=== PATIENT | female | born 1980 | race Caucasian/White ===

== ENCOUNTER 2020-09-23 14:48 | Outpatient (REF) | payer OTHER, SELFPAY ==
[2020-09-24 05:34] LABS: CT PCR NOT DETECTED (Not Detect.); NG PCR NOT DETECTED (Not Detect.)
== END 2020-09-23 14:49 | disposition home or self-care (01) ==
LOC: HO.LAB 14:48
PROVIDERS: PCP Physician Assistant; Referring Provider Physician Assistant; Visit Provider Obstetrics & Gynecology
DX: Z01.411 Encounter for gynecological examination (general) (routine) with abnormal findings (principal); Z11.3 Encounter for screening for infections with a predominantly sexual mode of transmission; N94.10 Unspecified dyspareunia; R31.29 Other microscopic hematuria
CPT/HCPCS: 87086; 87491; 87591

== ENCOUNTER → 2020-10-13 14:48 | Outpatient (BNVA) | payer OTHER, SELFPAY | PROVIDERS: Visit Provider Obstetrics & Gynecology | DX: Z30.430 Encounter for insertion of intrauterine contraceptive device (principal) | CPT/HCPCS: 58300; J7298 ==

== ENCOUNTER 2021-09-03 13:46 | Outpatient (REF) | payer OTHER, SELFPAY ==
[2021-09-03 14:14] LABS: Binax Internal Control QC Valid; Binax Now Covid-19 Ag Negative (Negative); Binax Performed by: HO.BONILM
== END 2021-09-03 13:47 | disposition home or self-care (01) ==
LOC: HO.HMGCLDS 13:46
PROVIDERS: Visit Provider Physician Assistant Medical
DX: Z20.822 Contact with and (suspected) exposure to COVID-19 (principal)
CPT/HCPCS: 87811; C9803

== ENCOUNTER 2021-09-08 09:21 | Outpatient (REF) | payer OTHER, SELFPAY ==
[2021-09-08 11:40] LABS: Monotest Negative (Negative)
== END 2021-09-08 09:22 | disposition home or self-care (01) ==
LOC: HO.HMGCLDS 09:21
PROVIDERS: PCP Physician Assistant; Visit Provider Physician Assistant
DX: J02.9 Acute pharyngitis, unspecified (principal)
CPT/HCPCS: 36415; 86308

== ENCOUNTER 2022-01-24 10:35 | Outpatient (REF) | payer OTHER, SELFPAY ==
[2022-01-24 13:41] LABS: Hemoglobin 14.7 g/dl (12.0-16.0); Mean Corpuscular HGB Conc 34.2 g/dl (31.0-35.0); Mean Corpuscular Hemoglobin 31.1 pg (27.0-33.0); Mean Corpuscular Volume 91.1 fL (80.0-98.0); Mean Platelet Volume 10.5 fL (9.4-12.3); Platelet Count 248 X10*3/uL (160-400); Red Blood Count 4.72 X10*6/uL (4.20-5.50); Red Cell Distribution Width 12.1 % (11.0-16.0); White Blood Count 5.8 X10*3/uL (4.8-10.8)
[2022-01-24 14:07] LABS: Appearance Urine Clear; Color Urine Yellow; Glucose Urine UA Negative (Negative); Leukocyte Esterase Urine Negative (Negative); Nitrite Urine Negative (Negative); UMIC TRIGGER UACC YES; Urine Blood Moderate (2+) (Negative); Urine Ketones Negative (Negative); Urine Protein Negative (Neg-Trace)
[2022-01-24 14:30] LABS: Alanine Aminotransferase 19 U/L (0-31); Albumin Level 5.2 g/dL (3.5-5.0); Alkaline Phosphatase 56 U/L (39-117); Anion Gap 12 (12-20); Aspartate Amino Transferase 18 U/L (5-31); Bilirubin Total 0.5 mg/dL (0.0-1.0); Blood Urea Nitrogen 15 mg/dL (9-16); Calcium 9.7 mg/dL (8.4-10.2); Carbon Dioxide 23 mmol/L (22-29); Chloride 109 mmol/L (96-108); Cholesterol 243 mg/dL; Estimated Glomerular Filt Rate > 60; Glucose Fasting 101 mg/dL (60-99); HDL Cholesterol 69 mg/dL; LDL Cholesterol Calculated 159 mg/dl; Potassium 4.4 mmol/L (3.3-5.1); Sodium 140 mmol/L (135-145); TSH reflex Free T4 1.71 uIU/mL (0.32-4.0); Total Protein 7.6 g/dL (6.5-8.0); Triglycerides 75 mg/dL
[2022-01-24 14:42] LABS: Bacteria Urine None Seen (None Seen); Hyaline Casts Urine 0-2 /LPF (0-2); RBC Urine 0-2 /HPF (0-2); Squamous Epithelial Cell Urine 0-2 /HPF (0-2); WBC Urine 0-5 /HPF (0-5)
== END 2022-01-24 10:36 | disposition home or self-care (01) ==
LOC: HO.10HDL 10:35
PROVIDERS: Visit Provider Physician Assistant
DX: Z13.1 Encounter for screening for diabetes mellitus (principal); Z13.220 Encounter for screening for lipoid disorders; Z13.29 Encounter for screening for other suspected endocrine disorder
CPT/HCPCS: 36415; 80053; 80061; 81001; 81003; 84443; 85027

== ENCOUNTER 2022-02-14 10:35 | Outpatient (REF) | payer OTHER, SELFPAY ==
[2022-02-14 17:58] LABS: Influenza A PCR POSITIVE (Negative); Influenza B PCR NEGATIVE (Negative); Resp Syncy Virus RNA Qual PCR NEGATIVE (Negative); SARS COV2 PCR INHOUSE NEGATIVE (Negative)
== END 2022-02-14 10:36 | disposition home or self-care (01) ==
LOC: HO.LAB 10:35
PROVIDERS: Visit Provider Internal Medicine
DX: R43.9 Unspecified disturbances of smell and taste (principal); Z20.822 Contact with and (suspected) exposure to COVID-19
CPT/HCPCS: 0241U

== ENCOUNTER 2022-02-16 08:27 | Outpatient (REF) | payer OTHER, SELFPAY ==
--- NOTE | ~2022-02-16 | XR_ITS ---
EXAMINATION: XR CHEST CLINICAL INFORMATION: Acute respiratory infection COMPARISON: 11/27/2017 TECHNIQUE: 2 views of the chest were obtained. FINDINGS: The lungs are well expanded. There is no focal consolidation, edema, or effusion. No pneumothorax. The cardiomediastinal silhouette is within normal limits. No acute osseous abnormality. XR/XR chest 2V IMPRESSION: Clear lungs.
== END 2022-02-16 08:28 | disposition home or self-care (01) ==
LOC: HO.HMGCX 08:27
PROVIDERS: PCP Physician Assistant; Visit Provider Physician Assistant
DX: J06.9 Acute upper respiratory infection, unspecified (principal)
CPT/HCPCS: 71046

== ENCOUNTER 2022-03-23 14:25 | Outpatient (REF) | payer OTHER, SELFPAY ==
--- NOTE | ~2022-03-23 | MM_ITS ---
EXAMINATION: MM SCREENING DIGITAL BREAST TOMOSYNTHESIS, BILATERAL CLINICAL INFORMATION: Screening. Asymptomatic. The lifetime risk of breast cancer based on the Tyrer-Cuzick Model is 12%. COMPARISON: Mammography: None TECHNIQUE: Digital breast tomosynthesis is performed in both the craniocaudal and mediolateral oblique views along with computer-aided detection (CAD). Synthesized 2D images are generated from the tomosynthesis. FINDINGS: The breasts are heterogeneously dense, which may obscure small masses (ACR BI-RADS breast composition Category c). There are no significant masses, abnormal calcifications, or other abnormalities. MM/MM tomosynthesis screening BI IMPRESSION: No mammographic evidence of malignancy. ASSESSMENT: BI-RADS 1: Negative RECOMMENDATION: Routine annual mammography screening. This patient's information was entered into a reminder system with a target due date for their next mammogram.
== END 2022-03-23 14:26 | disposition home or self-care (01) ==
LOC: HO.MAMMO 14:25
PROVIDERS: PCP Physician Assistant; Visit Provider Physician Assistant
DX: Z12.31 Encounter for screening mammogram for malignant neoplasm of breast (principal)
CPT/HCPCS: 77063; 77067

== ENCOUNTER 2022-04-26 14:21 | Outpatient (REF) | payer OTHER, SELFPAY ==
--- NOTE | ~2022-04-26 | XR_ITS ---
EXAMINATION: XR KNEE, RIGHT CLINICAL INFORMATION: Right knee pain. COMPARISON: None TECHNIQUE: Four views of the right knee. FINDINGS: Bones and soft tissues appear unremarkable. No fracture or joint effusion appreciated. Alignment is anatomic. Joint spaces are well maintained. No abnormal soft tissue calcification. XR/XR knee RT 4V IMPRESSION: Normal plain film examination of the right knee.
== END 2022-04-26 14:22 | disposition home or self-care (01) ==
LOC: HO.HMGCX 14:21
PROVIDERS: PCP Physician Assistant; Visit Provider Internal Medicine
DX: M25.561 Pain in right knee (principal)
CPT/HCPCS: 73564

== ENCOUNTER 2022-07-28 09:12 | Outpatient (REF) | payer OTHER, SELFPAY ==
[2022-07-28 10:32] LABS: Appearance Urine Clear; Color Urine Yellow; Glucose Urine UA Negative (Negative); Leukocyte Esterase Urine Negative (Negative); Nitrite Urine Negative (Negative); PH 7.5 (5.0-9.0); Specific Gravity - Urine <= 1.005 (1.005-1.025); Urine Blood Negative (Negative); Urine Ketones Negative (Negative); Urine Protein Negative (Neg-Trace)
[2022-07-28 10:54] LABS: Alanine Aminotransferase 23 U/L (0-31); Albumin Level 5.1 g/dL (3.5-5.0); Alkaline Phosphatase 51 U/L (39-117); Anion Gap 12 (12-20); Aspartate Amino Transferase 23 U/L (5-31); Blood Urea Nitrogen 9 mg/dL (9-16); Calcium 10.1 mg/dL (8.4-10.2); Carbon Dioxide 25 mmol/L (22-29); Chloride 105 mmol/L (96-108); Cholesterol 237 mg/dL; Estimated Glomerular Filt Rate > 60; Glucose Fasting 103 mg/dL (60-99); HDL Cholesterol 67 mg/dL; LDL Cholesterol Calculated 156 mg/dl; Potassium 4.3 mmol/L (3.3-5.1); Sodium 138 mmol/L (135-145); Total Protein 7.4 g/dL (6.5-8.0); Triglycerides 70 mg/dL
== END 2022-07-28 09:13 | disposition home or self-care (01) ==
LOC: HO.10HDL 09:12
PROVIDERS: Visit Provider Physician Assistant
DX: Z13.1 Encounter for screening for diabetes mellitus (principal); R30.0 Dysuria; R31.29 Other microscopic hematuria; E78.9 Disorder of lipoprotein metabolism, unspecified
CPT/HCPCS: 36415; 80053; 80061; 81003

== ENCOUNTER 2022-10-13 15:00 | Outpatient (RCR) | payer OTHER, SELFPAY ==
--- NOTE | 2022-09-06 18:11 | MHC.PT.EP ---
[facility] [place] [facility] [place] [facility] [place] [facility] [address] Elizabeth Espinoza [address] [phone] F: [phone] F: [phone] F: [phone] F: [phone] Physical Therapy Plan of Care Date of Evaluation: Date of Surgery: Diagnosis: RIGHT knee pain (MD Dx) RIGHT knee chondromalacia patella (PT Dx) Assessment: Patient is a pleasant, active 41 y.o. female who is in the who is referred to PT by ALEJANDRINA Sandoval, with Dx of RIGHT knee pain. PT diagnosis is RIGHT knee chondromalacia patella. Patient impairments include pain, mild swelling, weakness, limited AROM. Patient current functional limitations are unable to run for training, pain walking with combat boots outside, hiking, going up stairs, squat, gym program. Patient will benefit from skilled PT to address aforementioned impairments and functional limitations to meet established goals. Frequency and Duration: The patient will be seen 2x/week for 4 weeks Short Term Goals: 2 weeks Patient demonstrates consistency and independence with HEP to self manage symptoms. Patient demonstrates self taping of patella to support knee and reduce pain to 4/10. Usp Goals: 4 weeks Patient presents with increased R knee extension strength 5/5 to be able to ascend reciprocal stairs without sxs. Patient presents with increased R glute med strength 5/5 to be able to go hiking on uneven ground. Treatment Plan: Modalities to reduce pain, spasms and effusion. Manual therapy to restore motion and function. Therapeutic exercise to improve strength and flexibility. Neuromuscular re-education for posture and balance. Therapeutic activities to return to functional activities of daily living. Electronically signed by: Mike Burden, PT, DPT Please sign and return to therapist. Thank you for your referral.
--- NOTE | 2022-12-15 10:48 | MHC.PT.DC ---
[facility] [place] Office [place] Office [place] Office [address] Elizabeth Espinoza 140 [facility] [phone] F: [phone] F: [phone] F: [phone] F: [phone] Physical Therapy Discharge Report Diagnosis: RIGHT knee pain (MD Dx) RIGHT knee chondromalacia patella (PT Dx) Date of Surgery: Date of Evaluation: 09/06/22 Date of Discharge: 10/13/22 Treatments to Date: 7 Cancellations to Date: No Shows to Date: Discharge Status: Improved Function Independent with HEP Patient Elected to Stop Discharge Summary: Assessment from last PT treatment 10/13/22: Pt with decreased tissue tension in quad on R today, still presenting with increased tissue tension in posterior knee so continued with IASTM in this area. Reported significant relief after last session so continued US today as well. She reported relief with PT interventions including US and IASTM/manual therapy and was able to resume running that session without c/o knee pain. She discontinued PT on her own accord. Electronically signed by: Mike Burden, PT, DPT Please sign and return to therapist. Thank you for your referral.
== END 2022-12-15 10:49 | disposition home or self-care (01) ==
LOC: HO.PT 15:00
PROVIDERS: PCP Physician Assistant; Visit Provider Physician Assistant
DX: M25.561 Pain in right knee (principal)
CPT/HCPCS: 97035; 97110; 97112; 97140; 97161; 97530

== ENCOUNTER 2022-10-18 14:55 | Outpatient (REF) | payer OTHER, SELFPAY ==
[2022-10-26 04:14] LABS: HPV mRNA E6/E7 rflx Not Detected (Not Detected)
== END 2022-10-18 14:56 | disposition home or self-care (01) ==
LOC: HO.LNP 14:55
PROVIDERS: PCP Physician Assistant; Visit Provider Obstetrics & Gynecology
DX: Z01.419 Encounter for gynecological examination (general) (routine) without abnormal findings (principal); Z11.51 Encounter for screening for human papillomavirus (HPV); N93.0 Postcoital and contact bleeding; R31.29 Other microscopic hematuria
CPT/HCPCS: 81025; 87624; 88142

== ENCOUNTER 2022-10-18 14:55 | Outpatient (AMB) | payer OTHER, SELFPAY ==
--- NOTE | 2022-10-18 14:58 | A.OFFVIS_ITS ---
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 Complaining of postcoital bleeding and left-sided pelvic pain no associated vaginal discharge, fever or chills or any other associated symptoms Last Pap/HPV was negative in 05/28 Last Mammogram was BI-RADS 1 in 04/04 [facility] Medical History Dermatitis Microscopic hematuria Migraine aura without headache Surgical History History of appendectomy History of ectopic History of tonsillectomy Status post excision of lipoma Family History Father CVD (cardiovascular disease) Diabetes CAD (coronary artery disease) Cancer Mother Diabetes Sister Asthma Sister Emphysema lung Son In good health Daughter In good health Social History Housing: House Alcohol intake: current Alcohol intake frequency: holidays/special occasions only Alcohol type: wine Patient Tobacco Use Status: Never used Tobacco e-Cigarette/Vaping Use: Never Used Second Hand Smoke Exposure: No service: Yes Current occupational status: employed Current occupation: [employer] Cognitive needs: No Hearing needs: No Vision needs: No Female Reproductive History Menstrual Age of Menarche: 11 Date of last menstrual period: 10/09/22 control method: progestin IUCD Total pregnancies: 3 Number of Living Children: 2 Ectopics: 1 Date of last pap smear: 06/05/17 Date of Mammogram: 03/23/22 Review of Systems Const All systems reviewed & are unremarkable except as noted in HPI and below Card Reports as per HPI Resp Reports as per HPI GI Reports as per HPI and Reports no additional complaints Reports as per HPI Physical Exam Vital Signs: Last Vital Signs BP 112/72 08/08/23 15:02 BMI result Body Mass Index 25.3 Const General: cooperative, healthy appearing and comfortable Chest Chest palpation & inspection: normal inspection of the chest and normal palpation of entire chest wall Breast/axilla inspection: normal inspection of the breasts and normal inspection of the axillae Breast/axilla palpation: normal palpation of the breasts, normal palpation of the axillae and no axillary lymphadenopathy Resp Effort & Inspection: normal respiratory effort Auscultation: clear to auscultation bilaterally Percussion: percussion normal Cardio Palpation: normal PMI Rate: regular rate Rhythm: regular rhythm Heart sounds: no murmurs and no rubs Peripheral pulses: Peripheral pulses 2+ throughout GI Inspection: Yes normal to inspection Palpation (GI): Soft to palpation, nontender, no guarding, not rigid and No hepatosplenomegaly present Percussion: Yes normal to percussion Auscultation: normal bowel sounds Rectal Exam - Female: deferred General: Yes bladder normal to palpation External Female Exam: No lesion Speculum Exam - Vagina: normal appearance of the vagina, normal palpation, normal vaginal discharge and not erythematous Speculum Exam - Cervix: normal appearance of the cervix, normal palpation and Other cervical findings present (IUD string in place) Bimanual exam- vagina & uterus: normal bimanual exam, normal palpation, uterine size normal, bladder normal to palpation, consistency normal and normal palpation Bimanual Exam- Adnexa, other: normal adnexae, no masses and no tenderness Assessment & Plan Assessment & Plan (1) Well woman exam: Code(s): Z01.419 - Encounter for gynecological examination (general) (routine) without abnormal findings Plan: Cotesting done. Instructions given the patient to schedule her next screening Mammogram in 04/05. Counseled the patient about the recommended dietary allowance of 1000 mg of Calcium & 600 IU of vitamin D. The patient was instructed to perform monthly self-breast exams and to schedule an annual exam in a year; All questions answered and the patient verbalized understanding. Instructed the patient to schedule annual exam in a year (2) Postcoital bleeding: Code(s): N93.0 - Postcoital and contact bleeding Plan: Urine test was done in the office and was negative, Co testing done, GC and chlamydia taken CBC, TSH, HCG, and pelvic ultrasound ordered. Discussed with the patient the different causes of postcoital bleeding/AUB including thyroid disorders, uterine and ovarian pathology, endometrial hyperplasia, carcinoma and other potential causes. Discussed with the patient the work up including CBC (to r/o anemia), TSH, pelvic Ultrasound, endometrial biopsy to r/o endometrial pathology. All questions answered and the patient verbalized understanding. Instructed the patient to schedule an appointment for an endometrial biopsy in 2 weeks. (3) Microscopic hematuria: Code(s): R31.29 - Other microscopic hematuria Plan: Urine dip showed microscopic hematuria, will send urine for culture and repeat urine dip next visit. If persistent microscopic hematuria and negative urine culture will treat accordingly. Orders: Orders HCG Quantitative Today N93.9 - Abnormal uterine and vaginal bleeding, unsp ecified Prolactin Today N93.9 - Abnormal uterine and vaginal bleeding, unspecified TSH reflex Free T4 Today N93.9 - Abnormal uterine and vaginal bleeding, unspecified Complete Blood Count no Diff Today N93.9 - Abnormal uterine and vaginal bleeding, unspecified US pelvic and transvaginal Today N93.9 - Abnormal uterine and vaginal bleeding, unspecified Coding Level of Care Code Est Pt Prev Care 40-64y(37951) Diagnoses Well woman exam Z01.419 Postcoital bleeding N93.0 Microscopic hematuria R31.29
[2022-10-18 15:02] VITALS: BP 112/72; BMI 25.3
== END 2022-10-18 15:29 | disposition home or self-care (01) ==
LOC: HO.HWS 14:55
PROVIDERS: PCP Physician Assistant; Visit Provider Obstetrics & Gynecology
DX: Z01.419 Encounter for gynecological examination (general) (routine) without abnormal findings (principal); N93.0 Postcoital and contact bleeding; R31.29 Other microscopic hematuria; Z32.02 Encounter for pregnancy test, result negative
CPT/HCPCS: 99396

== ENCOUNTER 2022-10-18 15:36 | Outpatient (REF) | payer OTHER, SELFPAY ==
[2022-10-18 16:52] LABS: Hematocrit 45.6 % (37.0-47.0); Hemoglobin 15.3 g/dl (12.0-16.0); Mean Corpuscular HGB Conc 33.6 g/dl (31.0-35.0); Mean Corpuscular Volume 92.5 fL (80.0-98.0); Mean Platelet Volume 9.7 fL (9.4-12.3); Platelet Count 286 X10*3/uL (160-400); Red Blood Count 4.93 X10*6/uL (4.20-5.50); Red Cell Distribution Width 12.8 % (11.0-16.0)
[2022-10-18 17:25] LABS: HCG Quantitative < 2 mIU/mL; TSH reflex Free T4 2.96 uIU/mL (0.32-4.0)
[2022-10-19 11:42] LABS: CT PCR NOT DETECTED (Not Detect.); NG PCR NOT DETECTED (Not Detect.)
[2022-10-20 00:38] LABS: Prolactin 6.7 ng/mL
== END 2022-10-18 15:37 | disposition home or self-care (01) ==
LOC: HO.LAB 15:36
PROVIDERS: PCP Physician Assistant; Visit Provider Obstetrics & Gynecology
DX: N93.9 Abnormal uterine and vaginal bleeding, unspecified (principal); Z20.2 Contact with and (suspected) exposure to infections with a predominantly sexual mode of transmission; N93.0 Postcoital and contact bleeding
CPT/HCPCS: 0353U; 84146; 84443; 84702; 85027; 87086

== ENCOUNTER 2022-10-25 11:09 | Outpatient (REF) | payer OTHER, SELFPAY ==
--- NOTE | ~2022-10-25 | US_ITS ---
EXAMINATION: US PELVIS CLINICAL INFORMATION: Abnormal uterine and vaginal bleeding. COMPARISON: 11/07/2019 TECHNIQUE: Ultrasound of the pelvis is performed using both transabdominal and transvaginal transducers along with Doppler. Transvaginal imaging is performed due to inadequate visualization transabdominally. FINDINGS: The uterus is anteverted, heterogeneous and measures 9.7 x 5.1 x 5.9 cm, volume 152.82 mL. There is a 0.9 x 0.7 x 0.7 cm fibroid, previously 0.8 x 0.6 x 0.7 cm. Endometrial thickness is 0.7 cm. Nabothian cysts in the cervix. IUD in place within the endometrial cavity. Right ovary is unremarkable and measures 2.8 x 2.2 x 2.2 cm, volume 7.1 mL. Left ovary measures 3.0 x 2.5 x 3.3 cm, volume 3.0 mL. Left ovarian 1.8 x 1.2 x 1.5 cm complex, thick-walled lesion with minimal hypoechoic central area may represent a physiologic cyst such as a corpus luteum and was not previously identified. Findings likely represent a probable benign cyst. Recommend follow up ultrasonography in 6-12 weeks. Small amount of free fluid in the pelvis. US/US pelvic and transvaginal IMPRESSION: 1. Fibroid uterus. 2. Endometrial thickness is 0.[address] within the endometrial cavity. 3. Small amount of free fluid in the pelvis. 4. Left ovarian 1.8 cm complex, thick-walled lesion with minimal hypoechoic central area may represent a physiologic cyst such as a corpus luteum and was not previously identified. RECOMMEND FOLLOW UP ULTRASONOGRAPHY IN 6-12 WEEKS.
== END 2022-10-25 11:10 | disposition home or self-care (01) ==
LOC: HO.US 11:09
PROVIDERS: PCP Physician Assistant; Visit Provider Obstetrics & Gynecology
DX: N93.9 Abnormal uterine and vaginal bleeding, unspecified (principal)
CPT/HCPCS: 76830; 76856

== ENCOUNTER 2022-11-17 12:07 | Outpatient (REF) | payer OTHER, SELFPAY | END 2022-11-17 12:08 | disposition home or self-care (01) | LOC: HO.LNP 12:07 | PROVIDERS: PCP Physician Assistant; Visit Provider Obstetrics & Gynecology | DX: N39.0 Urinary tract infection, site not specified (principal); N93.9 Abnormal uterine and vaginal bleeding, unspecified; R31.29 Other microscopic hematuria; D25.9 Leiomyoma of uterus, unspecified; N83.299 Other ovarian cyst, unspecified side | CPT/HCPCS: 58100; 81003; 81025; 88305; 99212 ==

== ENCOUNTER 2022-11-17 12:07 | Outpatient (AMB) | payer OTHER, SELFPAY ==
[2022-11-17 12:22] VITALS: BP 116/80; BMI 25.7
--- NOTE | 2022-11-17 12:22 | MHC.OFFVIS ---
Intake Vital Signs 11/17/22 12:22 Height 5 ft 6 in Weight 159 lb BMI 25.7 BP 116/80 Intake Visit Reasons: Pelvic pain Elevator Installer Required: No Information Interpreted: non-clinical & clinical Agricultural Commodities Inspector: Agricultural Commodities Inspector Present (Aidyn) Allergies Penicillins [PCN] Allergy (Intermediate, Verified 11/17/22 12:23) HIVES Is last menstrual period known: Yes Last menstrual period: 10/22/22 Post menopausal: No HPI HPI Comments History of Present Illness Details The patient is presenting for follow-up regarding postcoital bleeding and microscopic hematuria complaining of persistent pelvic pain not associated another vaginal discharge the urinary or GI symptoms. The following workup was done.: H&H= 15.3/45.6 TSH, hCG, prolactin GC and chlamydia were negative. Co testing was done was negative. Mammogram done in 04/04 was BI-RADS 1 Urine culture grew lactobacillus Pelvic ultrasound showed the following: The uterus is anteverted, heterogeneous and measures 9.7 x 5.1 x 5.9 cm, volume 152.82 mL. There is a 0.9 x 0.7 x 0.7 cm fibroid, previously 0.8 x 0.6 x 0.7 cm. Endometrial thickness is 0.7 cm. Nabothian cysts in the cervix. IUD in place within the endometrial cavity. Right ovary is unremarkable and measures 2.8 x 2.2 x 2.2 cm, volume 7.1 mL. Left ovary measures 3.0 x 2.5 x 3.3 cm, volume 3.0 mL. Left ovarian 1.8 x 1.2 x 1.5 cm complex, thick-walled lesion with minimal hypoechoic central area may represent a physiologic cyst such as a corpus luteum and was not previously identified. Findings likely represent a probable benign cyst. Recommend follow up ultrasonography in 6-12 weeks. Small amount of free fluid in the pelvis. [facility] Medical History Dermatitis Microscopic hematuria Migraine aura without headache Surgical History History of appendectomy History of ectopic History of tonsillectomy Status post excision of lipoma Family History Father CVD (cardiovascular disease) Diabetes CAD (coronary artery disease) Cancer Mother Diabetes Sister Asthma Sister Emphysema lung Son In good health Daughter In good health Social History Housing: House Alcohol intake: current Alcohol intake frequency: holidays/special occasions only Alcohol type: wine Patient Tobacco Use Status: Never used Tobacco e-Cigarette/Vaping Use: Never Used Second Hand Smoke Exposure: No service: Yes Current occupational status: employed Current occupation: - [employer] Cognitive needs: No Hearing needs: No Vision needs: No Female Reproductive History Menstrual Age of Menarche: 11 Date of last menstrual period: 10/22/22 Review of Systems Const All systems reviewed & are unremarkable except as noted in HPI and below Reports as per HPI and Reports no additional complaints GI Reports no additional complaints Reports no additional complaints Physical Exam Vital Signs: Last Vital Signs BP 116/80 11/17/22 12:22 BMI result Body Mass Index 25.7 General: Yes no CVA tenderness External Female Exam: normal external appearance and normal appearance of the urethra Speculum Exam - Vagina: normal appearance of the vagina, normal palpation, no lesions and no masses Speculum Exam - Cervix: normal appearance of the cervix, normal palpation, no lesions, no masses, nontender and Other cervical findings present (IUD thread in place) Bimanual exam- vagina & uterus: normal bimanual exam, normal palpation, uterine size normal, normal palpation, uterine shape normal, No Cervical tenderness present and non-tender Bimanual Exam- Adnexa, other: normal adnexae Back/Spine/Pelvis Back: no CVA tenderness Office Procedures Endometrial Biopsy Details: The patient was counseled regarding the indication and benefits of endometrial sampling to rule out endometrial pathology including not limited to endometrial hyperplasia or endometrial cancer and others; The alternatives (Either do nothing vs. hysteroscopy D&C) & the risks were discussed with the patient including but not limited: pain, uterine perforation, bleeding, infection, possible injury to bladder, bowel, ureter, possible need for blood transfusion with all its possible risks. The patient verbalized understanding all questions answered and signed consent. Urine test done in the office was negative The patient was placed into the dorsal lithotomy position; a speculum was inserted in the vagina. Using aseptic technique for the procedure, the cervix was cleansed with Betadine. The anterior lip of the cervix was grasped with a single tooth tenaculum. The uterus was sounded to 7 cm with a 4 mm Pipelle was used. Tissues samples were obtained and placed in formalin, in a patient labeled container and sent to the pathology department. At the end of the procedure, there was minimal bleeding noted The patient tolerated the procedure well and was discharged in good condition with the following instructions: Nothing in the vagina until the bleeding stops. No sex until the bleeding stops, to call if any of the following occurs: fever (>100.4), flu-like symptoms, abdominal pain, heavy bleeding, four smelling vaginal discharge. The patient was instructed to schedule a Follow up appointment in 2 weeks to discuss pathology results of the biopsy and treatment options. This note was generated with a voice recognition program. Some errors may have been overlooked during the review of this note. Sometimes these errors may affect the content or meaning of a given sentence. [id number] Biopsy Assessment & Plan Assessment & Plan (1) Postcoital bleeding: Code(s): N93.0 - Postcoital and contact bleeding Plan: EMB done today, see procedure note. Instructions given the patient to schedule a 2 week follow-up appointment to discuss options of treatment (2) Microscopic hematuria: Code(s): R31.29 - Other microscopic hematuria Plan: Repeat urine dip showed no evidence of microscopic hematuria, the patient was reassured. (3) Uterine myoma: Code(s): D25.9 - Leiomyoma of uterus, unspecified Plan: EMB done, see procedure note , instructions given the patient to schedule a 2 week follow-up appointment to discuss different options of treatment (4) Complex ovarian cyst: Code(s): N83.299 - Other ovarian cyst, unspecified side Plan: Discussed with the patient the complex ovarian cyst by ultrasound. Discussed with the patient the Ultrasound findings, the main limitation of transvaginal ultrasonography alone as a diagnostic tool to distinguish benign from malignant masses relates to its lack of specificity and low positive predictive value for cancer. The differential diagnosis discussed with the patient includes the following but not limited to: benign and malignant gynecological and non-gynecological causes. Laboratory evaluation include UPT and GC/CT. Discussed with the patient options of treatment including laparoscopy ovarian cystectomy/oophorectomy vs. expectant management with repeat US in repeating pelvic US in 12 weeks from previous US. If the ovarian complex cyst is persistent larger and / or more complex looking, will refer to gynecologic Oncology. All pros, cons, risks and benefits of each approach were discussed with the patient including but not limited to a delay in the diagnosis and treatment of ovarian cancer affecting the prognosis; The patient decided to go ahead with expectant management. Instructions given the patient to schedule a 3 months follow-up ultrasound appointment. All questions were answered & the patient verbalized understanding and agreed with the plan. Orders: Orders AMB Endometrial Biopsy Today N93.0 - Postcoital and contact bleeding US pelvic and transvaginal Today N83.299 - Other ovarian cyst, unspecified side Coding Level of Care Code Est Pt Level 3 (33456) Procedure Only Diagnoses Postcoital bleeding N93.0 Microscopic hematuria R31.29 Uterine myoma D25.9 Complex ovarian cyst N83.299 CPT Codes Endometrial Biopsy - CPT: 27940-Kecaqxbosga Biopsy ([id number])
== END 2022-11-17 12:41 | disposition home or self-care (01) ==
PROVIDERS: PCP Physician Assistant; Visit Provider Obstetrics & Gynecology
DX: N93.0 Postcoital and contact bleeding (principal); R31.29 Other microscopic hematuria; D25.9 Leiomyoma of uterus, unspecified; N83.292 Other ovarian cyst, left side; N93.9 Abnormal uterine and vaginal bleeding, unspecified; Z32.02 Encounter for pregnancy test, result negative
CPT/HCPCS: 58100; 99213

== ENCOUNTER 2022-12-08 14:59 | Outpatient (AMB) | payer OTHER, SELFPAY ==
--- NOTE | 2022-12-08 15:26 | MHC.OFFVIS ---
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 The following workup was done.: H&H= 15.3/45.6 TSH, hCG, prolactin GC and chlamydia were negative. Co testing was done was negative. Mammogram done in 04/04 was BI-RADS 1 EMB pathology showed the following: Fragments of inactive endometrium with pseudo-decidual stromal change and infarct-type changes consistent with progestin effect; negative for atypia, hyperplasia or malignancy Pelvic ultrasound showed the following: The uterus is anteverted, heterogeneous and measures 9.7 x 5.1 x 5.9 cm, volume 152.82 mL. There is a 0.9 x 0.7 x 0.7 cm fibroid, previously 0.8 x 0.6 x 0.7 cm. Endometrial thickness is 0.7 cm. Nabothian cysts in the cervix. IUD in place within the endometrial cavity. Right ovary is unremarkable and measures 2.8 x 2.2 x 2.2 cm, volume 7.1 mL. Left ovary measures 3.0 x 2.5 x 3.3 cm, volume 3.0 mL. Left ovarian 1.8 x 1.2 x 1.5 cm complex, thick-walled lesion with minimal hypoechoic central area may represent a physiologic cyst such as a corpus luteum and was not previously identified. Findings likely represent a probable benign cyst. Recommend follow up ultrasonography in 6-12 weeks. Small amount of free fluid in the pelvis. The patient has been complaining of mood changes, have loss, pelvic cramping continues spotting on Mirena IUD [facility] Medical History Dermatitis Migraine aura without headache Microscopic hematuria Surgical History History of ectopic History of appendectomy Status post excision of lipoma History of tonsillectomy Family History Father CVD (cardiovascular disease) Diabetes CAD (coronary artery disease) Cancer Mother Diabetes Sister Asthma Sister Emphysema lung Son In good health Daughter In good health Social History Housing: House Alcohol intake: current Alcohol intake frequency: holidays/special occasions only Alcohol type: wine Patient Tobacco Use Status: Never used Tobacco e-Cigarette/Vaping Use: Never Used Second Hand Smoke Exposure: No service: Yes Current occupational status: employed Current occupation: [employer] Cognitive needs: No Hearing needs: No Vision needs: No Female Reproductive History Menstrual Age of Menarche: 11 Review of Systems Const All systems reviewed & are unremarkable except as noted in HPI and below Reports as per HPI and Reports no additional complaints GI Reports no additional complaints Reports no additional complaints Physical Exam Vital Signs: Last Vital Signs BP 122/70 12/08/22 15:30 BMI result Body Mass Index 27.4 Assessment & Plan Assessment & Plan (1) Postcoital bleeding: Comment: With Mirena IUD Code(s): N93.0 - Postcoital and contact bleeding Plan: Discussed the patient the results of her workup that was done, and her symptoms suggestive of side effects from the progesterone IUD, recommended removing her Mirena IUD, and proceed with partner vasectomy for family planning with no treatment versus laparoscopic sterilization with NovaSure endometrial ablation since the patient has migraine headaches and has a contraindication to estrogen containing control methods and has developed side effects from progesterone containing control method, all pros and cons, risks and benefits were discussed with the patient, the patient decided to discuss it with her and call for to schedule Mirena IUD removal. All questions answered, the patient verbalized understanding. (2) Complex ovarian cyst: Code(s): N83.299 - Other ovarian cyst, unspecified side Coding Level of Care Code Est Pt Level 3 (21363) Diagnoses Postcoital bleeding N93.0 Complex ovarian cyst N83.299
[2022-12-08 15:30] VITALS: BP 122/70; BMI 27.4
== END 2022-12-08 15:57 | disposition home or self-care (01) ==
PROVIDERS: PCP Physician Assistant; Visit Provider Obstetrics & Gynecology
DX: N93.0 Postcoital and contact bleeding (principal); N83.299 Other ovarian cyst, unspecified side
CPT/HCPCS: 99213

== ENCOUNTER → 2022-12-08 14:59 | Outpatient (BNVA) | payer OTHER, SELFPAY | PROVIDERS: PCP Physician Assistant; Visit Provider Obstetrics & Gynecology | DX: N93.0 Postcoital and contact bleeding (principal); N83.299 Other ovarian cyst, unspecified side; Z97.5 Presence of (intrauterine) contraceptive device | CPT/HCPCS: 99212 ==

== ENCOUNTER 2022-12-13 14:26 | Outpatient (AMB) | payer OTHER, SELFPAY ==
--- NOTE | 2022-12-13 15:20 | MHC.OFFVIS ---
Intake Intake Visit Reasons: IUD removal Allergies Penicillins [PCN] Allergy (Intermediate, Verified 12/08/22 15:31) HIVES HPI HPI Comments History of Present Illness Details Presenting requesting IUD removal. Patient's is planning to have vasectomy done [facility] Medical History Dermatitis Migraine aura without headache Microscopic hematuria Surgical History History of ectopic History of appendectomy Status post excision of lipoma History of tonsillectomy Family History Father CVD (cardiovascular disease) Diabetes CAD (coronary artery disease) Cancer Mother Diabetes Sister Asthma Sister Emphysema lung Son In good health Daughter In good health Social History Housing: House Alcohol intake: current Alcohol intake frequency: holidays/special occasions only Alcohol type: wine Patient Tobacco Use Status: Never used Tobacco e-Cigarette/Vaping Use: Never Used Second Hand Smoke Exposure: No service: Yes Current occupational status: employed Current occupation: [employer] Cognitive needs: No Hearing needs: No Vision needs: No Female Reproductive History Menstrual Age of Menarche: 11 Office Procedures IUD Insert/Removal Details Details: Counseling/Consent: After discussing with the patient the risks of the procedure including bleeding, infection, scar tissue formation, , possible injury to blood vessels or nerves, chronic arm pain, blood transfusion, and irregular unpredictable bleeding Alternative options were discussed with the patient including but not limited: Do nothing. The patient signed the consent and agreed with the plan; all questions answered. Urine test was done in the office and was negative Preop dx: Requesting IUD removal Op: IUD removal Post op dx: same EBL= 10 cc Procedure: The patient was put in the dorsal lithotomy position a speculum was inserted in the vagina the IUD thread identified. Using a Rebeca clamp the thread was grasped and the IUD pulled out with no complications. The patient tolerated the procedure well and was advised to use a different method for contraception. Discharge instructions: Instructions were given to the pt to call if temp>100.4, abdominal pain heavy vaginal bleeding, n/v occur. The patient verbalized understanding and all questions answered. This note was generated with a voice recognition program. Some errors may have been overlooked during the review of this note. Sometimes these errors may affect the content or meaning of a given sentence. [id number] Removal Procedure code (CPT) selection complete Assessment & Plan Assessment & Plan (1) Encounter for IUD removal: Code(s): Z30.432 - Encounter for removal of intrauterine contraceptive device Plan: IUD removed, see procedure note. Instructions given the patient use a backup method for control till her will have her his vasectomy done and is cleared to be used as a method of control, and to call in case menstrual cycles heavy. All questions answered, the patient verbalized understanding and agreed with the plan Coding Level of Care Code Procedure Only Diagnoses Encounter for IUD removal Z30.432 CPT Codes Details - CPT: 33357-CWE Removal ([id number])
== END 2022-12-13 15:27 | disposition home or self-care (01) ==
PROVIDERS: PCP Physician Assistant; Visit Provider Obstetrics & Gynecology
DX: Z30.432 Encounter for removal of intrauterine contraceptive device (principal)
CPT/HCPCS: 58301

== ENCOUNTER → 2022-12-13 14:26 | Outpatient (BNVA) | payer OTHER, SELFPAY | PROVIDERS: PCP Physician Assistant; Visit Provider Obstetrics & Gynecology | DX: Z30.432 Encounter for removal of intrauterine contraceptive device (principal) | CPT/HCPCS: 58301 ==

== ENCOUNTER 2023-02-13 10:54 | Outpatient (REF) | payer OTHER, SELFPAY ==
--- NOTE | ~2023-02-13 | US_ITS ---
EXAMINATION: US PELVIS CLINICAL INFORMATION: Ovarian cyst; the last menstrual period was on 02/01/2023. COMPARISON: Pelvic ultrasound dated 10/25/2022. TECHNIQUE: Ultrasound of the pelvis is performed using both transabdominal and transvaginal transducers along with Doppler. Transvaginal imaging is performed due to inadequate visualization transabdominally. FINDINGS: Uterus: The uterus is anteverted and and anteflexed. The uterus measures 10.2 x 4.4 x 6.6 cm. Nabothian cysts are seen within the cervix. The double wall endometrial thickness is 0.8 mm. The uterus is smooth in contour and has normal myometrial echogenicity. Within the leftward uterine body, 8 x 5 x 7 mm and 6 x 2 0.6 mL heterogeneous echotexture fibroid are seen. Adnexa: Both ovaries are visualized. There is normal color flow to the adnexa. There is no ovarian torsion. There is trace free fluid in the cul-de-sac. Right ovary measures 3.2 x 1.5 x 2.3 cm, volume 5.8 mL. Left ovary measures 2.9 x 2.8 x 3.1 cm, volume 13.2 mL. US/US pelvic and transvaginal IMPRESSION: 1. Small uterine fibroids are noted. 2. Nabothian cysts are seen within the cervix. 3. There is trace free fluid in the cul-de-sac.
== END 2023-02-13 10:55 | disposition home or self-care (01) ==
LOC: HO.US 10:54
PROVIDERS: PCP Physician Assistant; Visit Provider Obstetrics & Gynecology
DX: N83.299 Other ovarian cyst, unspecified side (principal)
CPT/HCPCS: 76830; 76856

== ENCOUNTER 2023-03-29 13:47 | Outpatient (REF) | payer OTHER, SELFPAY ==
--- NOTE | ~2023-03-29 | MM_ITS ---
EXAMINATION: MM SCREENING DIGITAL BREAST TOMOSYNTHESIS, BILATERAL CLINICAL INFORMATION: Screening. Asymptomatic. COMPARISON: Mammography: This study is compared to the only prior mammogram from 2022. TECHNIQUE: Digital breast tomosynthesis is performed in both the craniocaudal and mediolateral oblique views along with computer-aided detection (CAD). Synthesized 2D images are generated from the tomosynthesis. FINDINGS: There are scattered areas of fibroglandular density (ACR BI-RADS breast composition Category b). There are no significant masses, abnormal calcifications, or other abnormalities. MM/MM tomosynthesis screening BI IMPRESSION: No mammographic evidence of malignancy. ASSESSMENT: BI-RADS BI-RADS 1 - Negative RECOMMENDATION: Routine annual mammography screening. 1 year F/U This examination should not preclude the clinical evaluation of a suspicious palpable abnormality. This patient's information was entered into a reminder system with a target due date for their next mammogram.
== END 2023-03-29 13:48 | disposition home or self-care (01) ==
LOC: HO.MAMMO 13:47
PROVIDERS: PCP Physician Assistant; Visit Provider Physician Assistant
DX: Z12.31 Encounter for screening mammogram for malignant neoplasm of breast (principal)
CPT/HCPCS: 77063; 77067

== ENCOUNTER → 2023-03-29 14:00 | Outpatient (BNV) | payer OTHER, SELFPAY | PROVIDERS: PCP Physician Assistant; Visit Provider Radiology Diagnostic Radiology | DX: Z12.31 Encounter for screening mammogram for malignant neoplasm of breast (principal) | CPT/HCPCS: 77063; 77067 ==

== ENCOUNTER 2023-04-05 13:58 | Outpatient (AMB) | payer OTHER, SELFPAY ==
--- NOTE | 2023-04-05 14:00 | A.OFFVIS_ITS ---
Intake Vital Signs 04/05/23 14:01 Height 5 ft 6 in Weight 155 lb BMI 25.0 Intake Visit Reasons: US Follow up/DO NOT RS Leather Cleaner Required: No Information Interpreted: clinical only Dot Etcher: Dot Etcher Present Allergies Penicillins [PCN] Allergy (Intermediate, Verified 04/05/23 14:03) HIVES Is last menstrual period known: Yes Last menstrual period: 03/27/23 Do you need a note to return to daycare/school/sports/work: No HPI HPI Comments History of Present Illness Details Presenting for follow-up ultrasound regarding complex ovarian cyst previously identified on ultrasound. Feeling much better after removal of the IUD but complaining of heavy menstrual cycles associated with pelvic cramping and passage of blood clots. Last EMB was in 12/03 was negative Ultrasound done recently showed the following: Uterus: The uterus is anteverted and and anteflexed. The uterus measures 10.2 x 4.4 x 6.6 cm. Nabothian cysts are seen within the cervix. The double wall endometrial thickness is 0.8 mm. The uterus is smooth in contour and has normal myometrial echogenicity. Within the leftward uterine body, 8 x 5 x 7 mm and 6 x 2 0.6 mL heterogeneous echotexture fibroid are seen. Adnexa: Both ovaries are visualized. There is normal color flow to the adnexa. There is no ovarian torsion. There is trace free fluid in the cul-de-sac. Right ovary measures 3.2 x 1.5 x 2.3 cm, volume 5.8 mL. Left ovary measures 2.9 x 2.8 x 3.1 cm, volume 13.2 mL. [facility] Medical History Dermatitis Migraine aura without headache Microscopic hematuria Surgical History History of ectopic History of appendectomy Status post excision of lipoma History of tonsillectomy Family History Father CVD (cardiovascular disease) Diabetes CAD (coronary artery disease) Cancer Mother Diabetes Sister Asthma Sister Emphysema lung Son In good health Daughter In good health Social History Housing: House Alcohol intake: current Alcohol intake frequency: holidays/special occasions only Alcohol type: wine Patient Tobacco Use Status: Never used Tobacco e-Cigarette/Vaping Use: Never Used Second Hand Smoke Exposure: No service: Yes Current occupational status: employed Current occupation: [employer] Cognitive needs: No Hearing needs: No Vision needs: No Female Reproductive History Menstrual Age of Menarche: 11 Duration of menses: other (3-8) Date of last menstrual period: 03/27/23 control method: none Total pregnancies: 2 Full term: 2 Review of Systems Const All systems reviewed & are unremarkable except as noted in HPI and below Reports as per HPI and Reports no additional complaints GI Reports no additional complaints Reports no additional complaints Physical Exam Vital Signs: BMI result Body Mass Index 25.0 Assessment & Plan Assessment & Plan (1) Complex ovarian cyst: Comment: Resolved Code(s): N83.299 - Other ovarian cyst, unspecified side Plan: Discussed with the patient ultrasound findings showing the previously identified complex cyst has resolved. The patient was instructed to call if symptoms recur. All questions were answered the patient verbalized understanding. (2) Uterine myoma: Code(s): D25.9 - Leiomyoma of uterus, unspecified Plan: Discussed with the patient the findings on pelvic ultrasound & the risk of myosarcoma; discussed with the patient the options of treatment including expectant management versus hysterectomy; the pros and cons, risks benefits of each approach were discussed with the patient including the fact that in cases of myosarcoma, surgical treatment can lead to early diagnosis and positively affects the prognosis; after further discussion, the patient decided to proceed with expectant management. Will repeat pelvic ultrasound periodically. Instructions given to patient to call in case any of the following occurs: pressure symptoms, abnormal uterine bleeding, pelvic pain; and to schedule a future office follow-up appointment for reassessment and to order a repeat ultrasound . All questions answered, the patient verbalized understanding and agreed with the plan . (3) Abnormal uterine bleeding (AUB): Code(s): N93.9 - Abnormal uterine and vaginal bleeding, unspecified Plan: Discussed with the patient the results of the work up done and options of treatment including Lysteda, endometrial ablation and hysterectomy. All pros, cons, risks and benefits if each option was discussed with the patient and the patient decided to go ahead with Lysteda , so a more detailed discussion re: Lysteda including mechanism of action, benefits, risks including but not limited to thrombosis and strokes, Instructions were given on how to use, 2 tablets p.o. 3 times a day day 1 up to 3-5 days of menses and to schedule a 3 months follow-up appointment. The patient verbalized understanding and agreed with the plan. Medications: New tranexamic acid Start 1st day of menses and take it up to 3-5 days of menses. 1,300 mg (2 x 650 mg) PO TID 5 days 30 tabs 2RF Coding Level of Care Code Est Pt Level 3 (50731) Diagnoses Complex ovarian cyst N83.299 Uterine myoma D25.9 Abnormal uterine bleeding (AUB) N93.9
[2023-04-05 14:01] VITALS: BMI 25.0
== END 2023-04-05 14:34 | disposition home or self-care (01) ==
LOC: HO.HWS 13:58
PROVIDERS: PCP Physician Assistant; Visit Provider Obstetrics & Gynecology
DX: N83.299 Other ovarian cyst, unspecified side (principal); D25.9 Leiomyoma of uterus, unspecified; N93.9 Abnormal uterine and vaginal bleeding, unspecified
CPT/HCPCS: 99213

== ENCOUNTER → 2023-04-05 13:58 | Outpatient (BNVA) | payer OTHER, SELFPAY | PROVIDERS: PCP Physician Assistant; Visit Provider Obstetrics & Gynecology | DX: N83.299 Other ovarian cyst, unspecified side (principal); D25.9 Leiomyoma of uterus, unspecified; N93.9 Abnormal uterine and vaginal bleeding, unspecified | CPT/HCPCS: 99212 ==

== ENCOUNTER 2023-06-06 08:18 | Outpatient (AMB) | payer OTHER, SELFPAY ==
[2023-06-06 08:37] VITALS: BP 130/80; PULSE 81; TEMP 36.2; O2SAT 98; BMI 24.7
--- NOTE | 2023-06-06 08:37 | AM.OFFWIN_ITS ---
Intake Vital Signs 06/06/23 08:37 Height 5 ft 6 in Weight 153 lb BMI 24.7 BP 130/80 Blood Pressure Location Lt brachial Position Sitting Pulse 81 Pulse Source Pulse Oximeter Temp 97.2 F Temp Source Temporal Artery Scan Pulse Oximetry (%) 98 Oxygen Delivery Method Room Air Intake Visit Reasons: EP Rash, Sore throat [phone] Intake Note: pt is here today for rash sore throat started 2 weeks ago Patient Tobacco Use Status: Never used Tobacco Allergies Penicillins [PCN] Allergy (Intermediate, Verified 06/06/23 08:39) HIVES Medication List - Last Reconciled 06/06/23 by Carlos Taveras MD cetirizine (Zyrtec) 10 mg PO DAILY 90 days cyclobenzaprine 10 mg PO BEDTIME 30 days fluticasone propionate 50 mcg/actuation 2 sprays intranasal DAILY gabapentin 800 mg PO Q12H 90 days ibuprofen 800 mg PO TID prednisone 10 mg PO DAILY rizatriptan take 1 tab at onset of headache; if no relief may repeat 1 tab after at least 2 hrs; max = 3 tabs/24 hr PO 10 days zolpidem ER 12.5 mg PO BEDTIME 90 days Do you need a note to return to daycare/school/sports/work: No HPI EP Rash, Sore throat [phone] HPI Details 42-year-old female presents to the [facility] for a sick visit. Patient has a rash for the past 2 weeks. Present on both are arms, legs. Patient works out at the gym regularly. Her son was recently diagnosed with strep throat. [facility] Medical History Dermatitis Migraine aura without headache Microscopic hematuria Surgical History History of ectopic History of appendectomy Status post excision of lipoma History of tonsillectomy Family History Father CVD (cardiovascular disease) Diabetes CAD (coronary artery disease) Cancer Mother Diabetes Sister Asthma Sister Emphysema lung Son In good health Daughter In good health Social History Housing: House Alcohol intake: current Alcohol intake frequency: holidays/special occasions only Alcohol type: wine Patient Tobacco Use Status: Never used Tobacco e-Cigarette/Vaping Use: Never Used Second Hand Smoke Exposure: No service: Yes Current occupational status: employed Current occupation: - [employer] Cognitive needs: No Hearing needs: No Vision needs: No Female Reproductive History Menstrual Age of Menarche: 11 Physical Exam Vital Signs: Last Vital Signs Temp 97.2 F 06/06/23 08:37 Pulse 81 06/06/23 08:37 BP 130/80 06/06/23 08:37 Pulse Ox 98 06/06/23 08:37 Oxygen Delivery Method Room Air 06/06/23 08:37 BMI result Body Mass Index 24.7 Const General: cooperative and healthy appearing Nutritional Appearance: well nourished Orientation/consciousness: patient oriented x3 Limitations: no limitations HEENT Head: Yes normal to inspection Eyes General: appearance normal, both eyes and all related structures Neck Neck: Yes normal visual inspection Chest Chest palpation & inspection: normal palpation of entire chest wall Resp Effort & Inspection: normal respiratory effort Skin Other: Skin: Scattered papular lesions on both arms, forearms on the left side of the abdomen. No vesicles seen. Neuro General: patient oriented x3 Results AMB Rapid Strep AMB Rapid Strep Negative Last Edit by Isidro Hermosillo on 06/06/23 09:12 Assessment & Plan Assessment & Plan (1) Rash: Code(s): R21 - Rash and other nonspecific skin eruption Plan: Strep test was negative. Most likely irritant dermatitis. Prednisone prescribed in a tapering manner. If symptoms are not improving to follow-up here. Medications: New prednisone 6 pills by mouth day 1, 6 pills by mouth day 2, 5 pills by mouth day 3, 4 pills by mouth day 4, 3 pills by mouth day 5, 2 pills by mouth day 6, 1 pill by mouth day 7 and 1 pill by mouth day 8. 10 mg PO DAILY 28 tabs 0RF Coding Level of Care Code Est Pt Level 3 (44023) Diagnoses Rash R21
== END 2023-06-06 10:15 | disposition home or self-care (01) ==
PROVIDERS: PCP Physician Assistant; Visit Provider Internal Medicine
DX: R21 Rash and other nonspecific skin eruption (principal)
CPT/HCPCS: 99213

== ENCOUNTER 2023-06-14 08:24 | Outpatient (REF) | payer OTHER, SELFPAY ==
[2023-06-14 10:43] LABS: Hematocrit 44.9 % (37.0-47.0); Hemoglobin 14.9 g/dl (12.0-16.0); Mean Corpuscular HGB Conc 33.2 g/dl (31.0-35.0); Mean Corpuscular Hemoglobin 31.2 pg (27.0-33.0); Mean Corpuscular Volume 93.9 fL (80.0-98.0); Mean Platelet Volume 10.2 fL (9.4-12.3); Platelet Count 224 X10*3/uL (160-400); Red Blood Count 4.78 X10*6/uL (4.20-5.50); Red Cell Distribution Width 12.8 % (11.0-16.0)
[2023-06-14 11:33] LABS: Anion Gap 9 (12-20); TSH reflex Free T4 2.66 uIU/mL (0.32-4.0)
[2023-06-14 11:38] LABS: Alanine Aminotransferase 22 U/L (0-31); Albumin Level 4.4 g/dL (3.5-5.0); Alkaline Phosphatase 48 U/L (39-117); Aspartate Amino Transferase 17 U/L (5-31); Bilirubin Total 0.3 mg/dL (0.0-1.0); Blood Urea Nitrogen 24 mg/dL (9-16); Calcium 9.1 mg/dL (8.4-10.2); Carbon Dioxide 29 mmol/L (22-29); Chloride 104 mmol/L (96-108); Cholesterol 216 mg/dL (<200); Estimated Glomerular Filt Rate > 60; Glucose Fasting 99 mg/dL (60-99); HDL Cholesterol 53 mg/dL (>40); LDL Cholesterol Calculated 125 mg/dL (<100); Potassium 4.1 mmol/L (3.3-5.1); Sodium 138 mmol/L (135-145); Total Protein 6.8 g/dL (6.5-8.0); Triglycerides 191 mg/dL (<150)
== END 2023-06-14 08:25 | disposition home or self-care (01) ==
LOC: HO.10HDL 08:24
PROVIDERS: Visit Provider Physician Assistant
DX: E78.9 Disorder of lipoprotein metabolism, unspecified (principal)
CPT/HCPCS: 36415; 80053; 80061; 84443; 85027

== ENCOUNTER 2023-06-15 08:27 | Outpatient (AMB) | payer OTHER, SELFPAY ==
--- NOTE | 2023-06-15 08:34 | A.OFFPC_ITS ---
Vital Signs 3 06/15/23 08:36 Height 5 ft 6 in Weight 162 lb BMI 26.1 BP 114/68 Blood Pressure Location Lt brachial Position Sitting Pulse 80 Pulse Source Pulse Oximeter Pulse Oximetry (%) 98 Oxygen Delivery Method Room Air Intake Visit Reasons: PE Intake Note: Patient has been having on and off chest pain. Allergies Penicillins [PCN] Allergy (Intermediate, Verified 06/15/23 08:46) HIVES Medication List - Last Reconciled 06/15/23 by Tomasz Aguilar PA-C cetirizine (Zyrtec) 10 mg PO DAILY 90 days cyclobenzaprine 10 mg PO BEDTIME 30 days fluticasone propionate 50 mcg/actuation 2 sprays intranasal DAILY gabapentin 800 mg PO Q12H 90 days ibuprofen 800 mg PO TID prednisone 10 mg PO DAILY rizatriptan take 1 tab at onset of headache; if no relief may repeat 1 tab after at least 2 hrs; max = 3 tabs/24 hr PO 10 days zolpidem ER 12.5 mg PO BEDTIME 90 days Tobacco use date assessed: 06/15/23 Dental Screening Dental Screen Date: 06/15/23 Did you have a dental visit in the last 12 months?: Yes Did you have a dental problem in the last 6 months where you did not have access to dental care?: No Was dental information given to patient?: Patient has dentist HPI PE 2 HPI0 Details Patient is a 42-year-old female here today for a routine annual physical.? Patient has a past medical history significant for major depressive disorder, insomnia, chronic microscopic hematuria, uterine myoma, migraine disorder. Concerns--> reports recently and hitting her head. She did not seek any medical attention, has been having more headaches as of late. Also seen at the walk-in clinic for rash to which she was given a prednisone taper and rash resolved though has been returning. She also reports she has been having some left-sided chest pain over the last 3 months that is intermittent. She still works out at the gym and is not hindered by her chest pain. She was seen at the ER at [facility] and told she did not have a heart attack. She does report her father had coronary bypass in his 40s .. CHRONIC MEDICAL CONDITIONS--> Migraines:? HAVE BEEN FAIRLY STABLE WITH CURRENT MEDICATION REGIME. Her migraines are usually more frequent around her time of menses. She has stopped using Topamax which has not made much difference. .. ..Insomnia:? She continues to use zolpid em on a nightly basis also adding [id number] sleeping aids all without much relief.? She believes that her stress and anxiety as of late is causing her more sleep disturbance.? She is willing to see a neurologist sleep specialist for evaluation on her continued sleep disturbance .. Borderline high cholesterol: Most recent lipid panel showing improved total cholesterol though still borderline high. Her triglycerides were elevated and patient does report having high fatty meats the week before. She continues to be very active going to the gym several times a week. PLAN: She will continue to work on low cholesterol diet and try to increase her cardiovascular fitness. Vaccines: UTD with tetanus vaccine , up-to-date with COVID vaccine, UTD withflu vaccine Mammogram: Done in March of 2023, BI-RADS 1 County Administrator: Patient is followed by a propellant charge zone assembler and has up-to-date Pap [facility] Medical History Dermatitis Migraine aura without headache Microscopic hematuria Surgical History History of ectopic History of appendectomy Status post excision of lipoma History of tonsillectomy Family History Father CVD (cardiovascular disease) Diabetes CAD (coronary artery disease) Cancer Mother Diabetes Sister Asthma Sister Emphysema lung Son In good health Daughter In good health Social History Housing: House Alcohol intake: current Alcohol intake frequency: holidays/special occasions only Alcohol type: wine Patient Tobacco Use Status: Never used Tobacco e-Cigarette/Vaping Use: Never Used Second Hand Smoke Exposure: No service: Yes Current occupational status: employed Current occupation: [employer] Cognitive needs: No Hearing needs: No Vision needs: No Female Reproductive History Menstrual Age of Menarche: 11 Questionnaire PHQ-9 Over the last 2 weeks, how often have you been bothered by any of the following problems? 1. Little interest or pleasure in doing things: not at all 2. Feeling down, depressed, or hopeless: not at all 3. Trouble falling or staying asleep, or sleeping too much: not at all 4. Feeling tired or having little energy: not at all 5. Poor appetite or overeating: not at all 6. Feeling bad about yourself - or that you are a failure or have let yourself or your family down: not at all 7. Trouble concentrating on things, such as reading the newspaper or watching television: not at all 8. Moving or speaking so slowly that other people could have noticed. Or the opposite - being so fidgety or restless that you have been moving around a lot more than usual: not at all 9. Thoughts that you would be better off or of hurting yourself in some way: not at all Total score: 0 Depression Screening Interpretation: Negative Depression Screening Done: Yes 50569 - PHQ-9 Billing: Yes Source: Developed by Drs. Qamar Oneal, Pastora Johnson, Enrrique Meredith and colleagues, with an educational elin from [employer]. Thrive Questionnaire Date Thrive assessed: 06/15/23 I am a: Patient What is your living situation today?: I have a steady place to live Within the past 12 months, did the food you bought not last and you didn't have the money to get more?: Never true Within the past 12 months, did you worry whether your food would run out before you got money to buy more?: Never true Do you have trouble paying for medicines?: No Do you have trouble getting transportation to medical appointments?: No Do you have trouble paying your heating and electricity bill?: No Do you have trouble taking care of your child, family member or friend?: No Do you have trouble with day-to-day activities such as bathing, preparing meals, shopping, managing finances, etc.?: No Are you currently unemployed and looking for a job?: No Are you interested in more education?: No Please select the resources that you would like help with: None Currently or been in a relationship where the following occur: no concerns reported THRIVE Score: 0 AUDIT C Alcohol Use Questionnaire (AUDIT-C) 1. How often do you have a drink containing alcohol?: Monthly or less 2. How many drinks containing alcohol do you have on a typical day when you are drinking?: 1 or 2 3. How often do you have six or more drinks on one occasion?: Never Total Score: 1 CAYDEN-7 AMB Questionnaire CAYDEN-7 Date CAYDEN - 7 assessed: 06/15/23 Feeling nervous, anxious, or on edge: 0 = Not at all Not being able to stop or control worryin = Not at all Worrying too much about different things: 0 = Not at all Trouble relaxin = Not at all Being so restless that it is hard to sit still: 0 = Not at all Becoming easily annoyed or irritable: 0 = Not at all Feeling afraid as if something awful might happen: 0 = Not at all Total CAYDEN-7 score (0-4 normal; 5-9 mild; 10-14 moderate; 15-21 severe): 0 Source: Developed by Drs. Qamar Oneal, Pastora Johnson, Enrrique Meredith and colleagues, with an educational elin from [employer]. CAYDEN-7 Assessment Billing CAYDEN-7 Assessment Tool: CAYDEN-7 Assessment 42113 Review of Systems Const Denies body aches, Denies chills, Denies excessive sweating, Denies fatigue, Denies fever(s) and Reports headache(s) Eyes Denies blurry vision ENT Denies dysphagia, Denies vertigo, Denies dizziness, Reports headache(s), Denies hearing loss and Denies tinnitus Card Reports chest pain, Reports chest pain at rest, Denies chest pain with activity, Denies syncope, Denies irregular heart rhythm and Denies dyspnea Resp Denies chest congestion, Denies cough, Denies hemoptysis, Denies dyspnea and Denies wheezing GI Denies abdominal pain, Denies melena, Denies hematochezia, Denies coffee ground emesis, Denies dysphagia, Denies diarrhea, Denies nausea and Denies vomiting Denies urinary frequency, Denies dysuria, Denies urinary hesitancy and Denies urinary urgency Musc Denies arthralgias, Denies limited range of motion, Denies muscle cramps and Denies muscle weakness Skin/Breast Reports rash and Denies skin ulcer Neuro Denies Abnormal speech present, Denies confusion, Denies vertigo, Denies dizziness, Denies syncope, Reports headache(s), Denies memory loss and Denies seizure-like activity Psych Denies anxiety, Denies confusion, Denies depression, Denies memory loss, Denies panic attacks and Denies paranoia Endo Denies excessive sweating, Denies fatigue, Denies flushing, Denies polydipsia and Denies polyuria Aller/Immun Denies wheezing Physical exam (Primary Care) Vital Signs: Oxygen Delivery Method Room Air 06/15/23 08:36 BMI result Body Mass Index 26.1 Tobacco/Smoking Status: Tobacco use Status Tobacco use date assessed 08/04/22 06/15/23 08:35 Patient Tobacco Use Status Never used Tobacco 06/15/23 08:35 e-Cigarette/Vaping Use Never Used 06/15/23 08:35 Depression Screening Interpretation: Negative Thrive Assessment: Date of Thrive Assessment Date Thrive assessed 08/04/22 06/15/23 08:35 Currently or been in a relationship where the following occur: no concerns reported Const General: cooperative, comfortable, no acute distress, alert and awake; No confusion Orientation/consciousness: oriented to person, oriented to place, patient oriented x3 and No confusion HENMT Head: Yes normocephalic Ears: external ears normal and TM's normal bilaterally Face and sinus: No sinus tenderness Mouth: Normal oral and palatal mucosa present and tongue normal Teeth and gingiva: dentition normal and gingiva normal Throat: Yes posterior oropharynx normal, Yes tonsils normal and Yes uvula midline Eyes Conjunctivae: conjunctivae normal Sclerae: sclerae normal Pupils: Equal, round and reactive pupils present EOM: EOMs intact bilaterally Direct Ophthalmoscopy: No no photophobia Neck Neck: Yes no lymphadenopathy, No tender and Yes no JVD Thyroid: Thyroid normal Carotids: no bruits Chest Chest palpation & inspection: no tenderness Chest/axillae images: 2 1. PAPULAR RASH NOTED OVER UPPER CHEST Resp Effort & Inspection: normal respiratory effort, no audible wheezes, not labored and no stridor Auscultation: no crackles, no rales, no rhonchi and no wheezes Cardio Jugular venous distension: no JVD Rate: regular rate, not bradycardic and not tachycardic Rhythm: regular rhythm Bruits: no carotid bruits Peripheral pulses: Peripheral pulses 2+ throughout GI Inspection: Yes normal to inspection, No abdominal wall ecchymosis and No visible herniation Palpation (GI): Soft to palpation, nontender, no guarding, not rigid and No hepatosplenomegaly present Auscultation: normoactive bowel sounds General: Yes no CVA tenderness Back/Spine/Pelvis Back: no CVA tenderness and No back tenderness Cervical Spine: cervical ROM normal Thoracic/Lumbar Spine: thoracic and lumbar spine normal to inspection, straight leg raise negative bilaterally, No thoraco-lumbar ROM limited and No lumbar spinal tenderness Skin Lesions: no lesions Rashes: no rashes Wounds: no wounds Neuro General: oriented to person, oriented to place, patient oriented x3, CN's II-XI intact bilaterally and No confusion Cranial nerves: Yes Equal, round and reactive pupils present and Yes Normal accommodation reflex present Cognition (Neuro): normal cognition Speech: No Abnormal speech present Gait exam (Neuro): Normal gait present Motor exam (neuro): 5/5 motor strength present throughout Extrem Right upper extremity: full ROM; no cyanosis Left upper extremity: full ROM; no cyanosis Shoulder/upper arm images: 2 1. LIPOMATOUS LESION OVER RIGHT SHOULDER. Right lower extremity: no edema Left lower extremity: no edema Psych Appearance: grossly normal Mental Status: mental status grossly normal Affect: normal affect Attitude: cooperative Thought process: Normal thought process present Assessment and Plan Assessment & Plan (1) Annual physical exam: Code(s): Z00.00 - Encounter for general adult medical examination without abnormal findings (2) Atypical chest pain: Code(s): R07.89 - Other chest pain Plan: Reports a 3 month history of left-sided chest pain that is random. She denies any exertional chest pain. She denies any association with her chest pain to eating any foods. She does do a lot of upper body workouts though finds it weird that her chest pain is only on left side. She is concerned as she does have a family history of early coronary artery disease. Will send for Eyal protocol cardiac stress testing to evaluate for cardiac ischemia. (3) Borderline high cholesterol: Code(s): E78.9 - Disorder of lipoprotein metabolism, unspecified Plan: Patient continues with borderline high total cholesterol. She will work on dietary modifications and being physically active to continue reducing her cholesterol. (4) MDD (major depressive disorder), recurrent episode, moderate: Code(s): F33.1 - Major depressive disorder, recurrent, moderate Plan: PHQ-9 score 0, does have a history of depression.. Patient's depression has been stable without daily use depression medication. Still has trouble with sleep thus uses zolpidem on a nightly basis. (5) Migraines: Code(s): G43.909 - Migraine, unspecified, not intractable, without status migrainosus Qualifiers: Intractability: not intractable Migraine type: without aura Status migrainosus presence: without status migrainosus Qualified Code(s): G43.009 - Migraine without aura, not intractable, without status migrainosus Plan: Have been stable with current medication regime. Has stopped Topamax She reports her migraines are more related to her hormones. (6) Lumbar spine pain: Code(s): M54.5 - Low back pain Plan: Continues to manage her pain with gabapentin, tramadol p.r.n. and cyclobenzaprine. We did discuss some of the habit-forming nature of tramadol patient does understand use this on a p.r.n. basis. (7) Skin lesion: Code(s): L98.9 - Disorder of the skin and subcutaneous tissue, unspecified Plan: Has skin lesion over her right shoulder and would like to see a sustainability specialist. Orders: Orders 2 CA stress test Today R07.89 - Other chest pain Lipid Panel 6 Months E78.9 - Disorder of lipoprotein metabolism, unspecified Comprehensive [place]. Panel Fast 6 Months E78.9 - Disorder of lipoprotein metabolism, unspecified Complete Blood Count no Diff 6 Months E78.9 - Disorder of lipoprotein metabolism, unspecified XR chest 2V Today R07.89 - Other chest pain Referrals 2 Dermatology Referral L30.9 - Dermatitis, unspecified, L98.9 - Disorder of the skin and subcutaneous tissue, unspecified Medications: Refilled 2 prednisone 6 pills by mouth day 1, 6 pills by mouth day 2, 5 pills by mouth day 3, 4 pills by mouth day 4, 3 pills by mouth day 5, 2 pills by mouth day 6, 1 pill by mouth day 7 and 1 pill by mouth day 8. 10 mg PO DAILY 28 tabs 0RF E78.9 - Disorder of lipoprotein metabolism, unspecified Coding Level of Care Code Est Pt Prev Care 40-64y(12243) Diagnoses Annual physical exam Z00.00 Atypical chest pain R07.89 Borderline high cholesterol E78.9 MDD (major depressive disorder), recurrent episode, moderate F33.1 Migraine without aura and without status migrainosus, not intractable G43.009 Intractability: not intractable Migraine type: without aura Status migrainosus presence: without status migrainosus Lumbar spine pain M54.5 Skin lesion L98.9 Additional Codes CAYDEN-7 Assessment Billing - CAYDEN-7 Assessment Tool: CAYDEN-7 Assessment 44861 ([id number])
[2023-06-15 08:36] VITALS: BP 114/68; PULSE 80; O2SAT 98; BMI 26.1
== END 2023-06-15 09:21 | disposition home or self-care (01) ==
PROVIDERS: PCP Physician Assistant; Visit Provider Physician Assistant
DX: Z00.00 Encounter for general adult medical examination without abnormal findings (principal); R07.89 Other chest pain; E78.9 Disorder of lipoprotein metabolism, unspecified; F33.1 Major depressive disorder, recurrent, moderate; G43.009 Migraine without aura, not intractable, without status migrainosus; M54.50 Low back pain, unspecified; L98.9 Disorder of the skin and subcutaneous tissue, unspecified
CPT/HCPCS: 99396

== ENCOUNTER 2023-06-15 09:27 | Outpatient (REF) | payer OTHER, SELFPAY ==
--- NOTE | ~2023-06-15 | XR_ITS ---
EXAMINATION: XR CHEST CLINICAL INFORMATION: Reason for Exam R07.89 - Other chest pain COMPARISON: Chest radiograph 02/16/2022 TECHNIQUE: 2 views of the chest FINDINGS: Lines and tubes: None. Clear lungs. No pleural effusion. No pneumothorax. Normal cardiomediastinal silhouette. XR/XR chest 2V IMPRESSION: * Clear lungs.
== END 2023-06-15 09:28 | disposition home or self-care (01) ==
LOC: HO.XRAY 09:27
PROVIDERS: PCP Physician Assistant; Visit Provider Physician Assistant
DX: R07.89 Other chest pain (principal)
CPT/HCPCS: 71046

== ENCOUNTER → 2023-07-03 08:47 | Outpatient (REF) | payer OTHER, SELFPAY ==
--- NOTE | 2023-07-03 08:49 | CA_ITS ---
Acquisition Time: 2023-07-03 09:03:36 Total Exercise Time: 00:13:34 Test Indications: CP Medications: SEE H Protocol: THO Max HR: 164 BPM 91% of Pred: 179 BPM Max BP: 160/074 mmHG Max Work Load: 16.3 METS Exercise stress test exercise 13 min 34 sec of Tho protocol achieving 91% MPHR, without anginal symptoms, without arrhythmias, with normotenisve response to exercise, without EKG changes, Test reviewed with Dr. Mares Referred By: Tomasz Aguilar Overread By: Mandi Matta
== END ==
LOC: HO.CARD 08:47
PROVIDERS: PCP Physician Assistant; Visit Provider Physician Assistant
DX: R07.89 Other chest pain (principal)
CPT/HCPCS: 93017

== ENCOUNTER → 2023-07-03 08:49 | Outpatient (BNV) | payer OTHER, SELFPAY | PROVIDERS: PCP Physician Assistant; Visit Provider Nurse Practitioner | DX: R07.9 Chest pain, unspecified (principal) | CPT/HCPCS: 93016; 93018 ==

== ENCOUNTER 2024-04-09 14:23 | Outpatient (REF) | payer OTHER, SELFPAY ==
--- OUTSIDE RECORDS SUMMARY | 2024-04-09 15:18 | XMS_ITS | Continuity of Care Document ---
Author Name [facility] Organization [facility] Care Team Providers Care Painter Rough Name Role Phone [facility] Unavailable Unavailable Problems Combined list of problems from Department of Defense and Veterans Affairs facilities. It does not include entries that were removed or entered in error. Problem Status Onset Date Problem Type Date of Resolution Comments Source no psychiatric diagnosis or condition on axis I Inactive Condition [facility] Medications Combined list of outpatient medications from Department of Defense and Veterans Affairs facilities.Medications provided include 1) outpatient medications from the last 15 months, and 2) patient-reported medications. Medication Details Route Status Patient Instructions Prescription Expires Prescription Number Last Dispense Date Ordering Provider Order Date Order Qty Source AZITHROMYCI N (azithromyc in), 250 MG, TABLET, ORAL, LUPIN PHARMACEU, 6 ea. BLIST PACK Active [id number] 2023 6 Pharmac y Data Transac tion Service Facilit y AZITHROMYCI N (azithromyc in), 250 MG, TABLET, ORAL, LUPIN PHARMACEU, 6 ea. BLIST PACK Active [id number] 4 2023 6 Pharmac y Data Transac tion Service Facilit y CYCLOBENZAP RINE HCL (cyclobenza simin HCl), 10 MG, TABLET, ORAL, TEVA [place], 1000 ea. BOTTLE Active [id number] 2023 30 Pharmac y Data Transac tion Service Facilit y CYCLOBENZAP RINE HCL (cyclobenza simin HCl), 10 MG, TABLET, ORAL, TEVA [place], 1000 ea. BOTTLE Active [id number] 4 2023 30 Pharmac y Data Transac tion Service Facilit y desogestrel -ethinyl estradiol biphasic oral tablet desogest rel-ethi nyl estradio l biphasic oral tablet Start Date: 09/06/20 Status: Ordered Ordered No Facilit y Access FLUCELVAX QUAD [id number] (flu vaccine quad (6 month and older)cell derived/PF) , 60MCG/.5ML, SYRINGE, INTRAMUSC, [employer] .5 ml SYRINGE Active [id number] 3 2022 0.5 Pharmac y Data Transac tion Service Facilit y fluticasone 50 mcg/inh nasal spray fluticas one 50 mcg/inh nasal spray Start Date: 09/06/20 Status: Ordered Ordered No Facilit y Access FLUTICASONE PROPIONATE (FLUTICASON E PROPIONATE) , 50MCG, SPRAY SUSP, NASAL, LOU LABS., 16 g AER W/ADAP Active [id number] 2023 48 Pharmac y Data Transac tion Service Facilit y FLUTICASONE PROPIONATE (FLUTICASON E PROPIONATE) , 50MCG, SPRAY SUSP, NASAL, LOU LABS., 16 g AER W/ADAP Active [id number] 4 2023 48 Pharmac y Data Transac tion Service Facilit y GABAPENTIN (gabapentin ), 800 MG, TABLET, ORAL, EXELAN PHARMACE, 500 ea. BOTTLE Active [id number] 4 2023 180 Pharmac y Data Transac tion Service Facilit y gabapentin 800 mg oral tablet gabapent in 800 mg oral tablet Start Date: 03/28/21 Status: Ordered Ordered No Facilit y Access IBUPROFEN (ibuprofen) , 800 MG, TABLET, ORAL, EXELAN PHARMACE, 500 ea. BOTTLE Active [id number] 4 2023 90 Pharmac y Data Transac tion Service Facilit y ibuprofen 800 mg oral tablet ibuprofe n 800 mg oral tablet Start Date: 12/15/20 Status: Ordered Ordered No Facilit y Access PREDNISONE (prednisone ), 10 MG, TABLET, ORAL, MYLAN, 1000 ea. BOTTLE Active [id number] 4 2023 28 Pharmac y Data Transac tion Service Facilit y PREDNISONE (prednisone ), 10 MG, TABLET, ORAL, MYLAN, 1000 ea. BOTTLE Cancele d [id number] : 2023 0 Pharmac y Data Transac tion Service Facilit y PREDNISONE (prednisone ), 10 MG, TABLET, ORAL, MYLAN, 1000 ea. BOTTLE Active [id number] 4 2023 28 Pharmac y Data Transac tion Service Facilit y predniSONE 10 mg oral tablet predniSO NE 10 mg oral tablet Start Date: 03/28/20 Status: Ordered Ordered No Facilit y Access rizatriptan 10 mg oral tablet rizatrip campos 10 mg oral tablet Start Date: 12/14/20 Status: Ordered Ordered No Facilit y Access TOPIRAMATE (topiramate ), 25 MG, TABLET, ORAL, EXELAN PHARMACE, 1000 ea. BOTTLE Active [id number] 2023 360 Pharmac y Data Transac tion Service Facilit y topiramate 25 mg oral tablet topirama te 25 mg oral tablet Start Date: 12/15/20 Status: Ordered Ordered No Facilit y Access traMADol 50 mg oral tablet traMADol 50 mg oral tablet Start Date: 09/20/20 Status: Ordered Ordered No Facilit y Access TRANEXAMIC ACID (tranexamic acid), 650 MG, TABLET, ORAL, ANI PHARMACEUTI , 30 ea. BOTTLE Active [id number] 2023 30 Pharmac y Data Transac tion Service Facilit y zolpidem 12.5 mg oral tablet, extended release zolpidem 12.5 mg oral tablet, extended release Start Date: 04/02/21 Status: Ordered Ordered No Facilit y Access ZOLPIDEM TARTRATE ER (ZOLPIDEM TARTRATE), 12.5 MG, TAB MPHASE, ORAL, LUPIN PHARMACEU, 100 ea. BOTTLE Cancele d [id number] : 2023 0 Pharmac y Data Transac tion Service Facilit y ZOLPIDEM TARTRATE ER (ZOLPIDEM TARTRATE), 12.5 MG, TAB MPHASE, ORAL, LUPIN PHARMACEU, 100 ea. BOTTLE Active [id number] 3 2022 90 Pharmac y Data Transac tion Service Facilit y ZOLPIDEM TARTRATE ER (ZOLPIDEM TARTRATE), 12.5 MG, TAB MPHASE, ORAL, LUPIN PHARMACEU, 100 ea. BOTTLE Active [id number] 4 2023 90 Pharmac y Data Transac tion Service Facilit y Immunizations Combined list of available immunizations from the Department of Defense and Veterans Affairs facilities. Immunization Series Date Given Administered By Site Reaction Lot Number CVX Code Drug Oil Changer Status Comments Source tetanus, diphtheria, acellular pertu is 2021 [id number] sanofi pasteur complet ed tetanus, diphtheri a, acellular pertussis 05/20/21 Given Ambulat ory Pharmac y tetanus toxoid, reduced diphtheria toxoid, and acellular pertu is vaccine, adsorbed 1 2021 [id number] 115 Sanofi Pasteur ([facility]) complet ed tetanus toxoid, reduced diphtheri a toxoid, and acellular pertussis vaccine, adsorbed DoD influenza, injectable, quadrivalent 2020 [id number] 158 [employer] ut complet ed influenza , injectabl e, quadrival ent 12/26/20 Given Ambulat ory Pharmac y influenza, injectable, quadrivalent, contains preservative 11 2020 [id number] 158 [facility] (SKB) complet ed influenza , injectabl e, quadrival ent, contains preservat ronn DoD COVID Vaccine Pfizer 2020 [facility] Arm [id number] PFIZER complet ed COVID Vaccine Pfizer 12/11/20 Given Ambulat ory Pharmac y SARS-COV-2 (COVID-19) vaccine, mRNA, spike protein, LNP, preservative free, 30 mcg/0.3mL dose 2 2020 DEBBIE CROWDER [id number] 208 [employer] (PFR) complet ed SARS-COV- 2 (COVID-19 ) vaccine, mRNA, spike protein, LNP, preservat ronn free, 30 mcg/0.3mL dose DoD COVID Vaccine Pfizer 2020 [facility] [id number] 208 PFIZER complet ed COVID Vaccine Pfizer 11/20/20 Given Ambulat ory Pharmac y SARS-COV-2 (COVID-19) vaccine, mRNA, spike protein, LNP, preservative free, 30 mcg/0.3mL dose 1 2020 MULUGETA PRESLEY [id number] 208 [employer] (PFR) complet ed SARS-COV- 2 (COVID-19 ) vaccine, mRNA, spike protein, LNP, preservat ronn free, 30 mcg/0.3mL dose DoD Influenza, inj, MDCK, quadrivalent- pf 2019 171 complet ed Influenza , inj, MDCK, quadrival ent-pf 01/17/20 Given Ambulat ory Pharmac y influenza, injectable, quadrivalent 2019 158 Seqirus complet ed influenza , injectabl e, quadrival ent 01/17/20 Given Ambulat ory Pharmac y influenza, injectable, quadrivalent, contains preservative 1 2019 158 Seqirus (SEQ) comple t ed influenza , injectabl e, quadrival ent, contains preservat ronn DoD Influenza, injectable, [place] Canine Kidney, preservative free, quadrivalent 0 2019 171 (MVX) complet ed Influenza , injectabl e, Madin Julianne Canine Kidney, preservat ronn free, quadrival ent DoD Influenza, injectable, MDCK, preservative free, quadrivalent 2019 [place], () Not Given Influenza , injectabl e, MDCK, preservat ronn free, quadrival ent DoD influenza, injectable, quadrivalent- pf 2018 [id number] 150 Seqirus complet ed influenza , injectabl e, quadrival ent-pf 01/10/19 Given Ambulat ory Pharmac y Influenza, injectable, quadrivalent, preservative free 20 2018 [id number] 520 150 Seqirus (SEQ) complet ed Influenza , injectabl e, quadrival ent, preservat ronn free DoD influenza, seasonal, injectable 2017 [id number] 141 sanofi pasteur complet ed influenza , seasonal, injectabl e 12/20/17 Given Ambulat ory Pharmac y Influenza, seasonal, injectable 1 2017 [id number] 141 Sanofi Pasteur (PMC) complet ed Influenza , seasonal, injectabl e DoD influenza, seasonal, injectable 2016 TRANSCR IBED 141 complet ed influenza , seasonal, injectabl e 01/12/17 Given Ambulat ory Pharmac y Influenza, seasonal, injectable 1 2016 141 Transcribed (TRS) complet ed Influenza , seasonal, injectabl e DoD Influenza, seasonal, injectable, preservative free 2016 CEE, () Not Given Influenza , seasonal, injectabl e, preservat ronn free DoD influenza, seasonal, injectable 2015 [id number] 141 CSL [employer]ring complet ed influenza , seasonal, injectabl e 12/30/15 Given Ambulat ory Pharmac y Influenza, seasonal, injectable 1 2015 [id number] 141 [facility] [employer] (CSL) complet ed Influenza , seasonal, injectabl e DoD influenza, seasonal, injectable-pf 2014 TRANSCR IBED 140 CS Behring complet ed influenza , seasonal, injectabl e-pf 01/02/15 Given Ambulat ory Pharmac y Influenza, seasonal, injectable, preservative free 1 2014 140 [facility] [employer] (CSL) complet ed Influenza , seasonal, injectabl e, preservat ronn free DoD influenza, seasonal, injectable 2013 TRANSCR IBED 141 complet ed influenza , seasonal, injectabl e 03/12/14 Given Ambulat ory Pharmac y influenza, seasonal, injectable-pf 2013 140 complet ed influenza , seasonal, injectabl e-pf 03/12/14 Given Ambulat ory Pharmac y Influenza, seasonal, injectable, preservative free 0 2013 140 (MVX) complet ed Influenza , seasonal, injectabl e, preservat ronn free DoD Influenza, seasonal, injectable 1 2013 141 Transcribed (TRS) complet ed Influenza , seasonal, injectabl e DoD influenza, seasonal, injectable-pf 2012 [id number] 140 Novartis Pharmaceutica complet ed influenza , seasonal, injectabl e-pf 12/10/12 Given Ambulat ory Pharmac y Influenza, seasonal, injectable, preservative free 15 2012 [id number] 140 Novartis Pharmaceutica l Gareth. (NOV) complet ed Influenza , seasonal, injectabl e, preservat ronn free DoD influenza, seasonal, injectable-pf 2011 [id number] 140 CS Behring complet ed influenza , seasonal, injectabl e-pf 11/26/11 Given Ambulat ory Pharmac y Influenza, seasonal, injectable, preservative free 14 2011 [id number] 140 [facility] [employer] (CSL) complet ed Influenza , seasonal, injectabl e, preservat ronn free DoD tetanus, diphtheria, acellular pertu is 2010 [id number] 115 sanofi pasteur complet ed tetanus, diphtheri a, acellular pertussis 02/10/11 Given Ambulat ory Pharmac y tetanus toxoid, reduced diphtheria toxoid, and acellular pertu is vaccine, adsorbed 0 2010 [id number] 115 Sanofi Pasteur ([facility]) complet ed tetanus toxoid, reduced diphtheri a toxoid, and acellular pertussis vaccine, adsorbed DoD influenza, seasonal, injectable-pf 2010 [id number] 140 CSL Behring complet ed influenza , seasonal, injectabl e-pf 12/13/10 Given Ambulat ory Pharmac y Influenza, seasonal, injectable, preservative free 0 2010 [id number] 140 [facility] [employer] (CS) complet ed Influenza , seasonal, injectabl e, preservat ronn free DoD influenza virus vaccine,split 2009 [id number] 15 sanofi pasteur complet ed influenza virus vaccine,s plit 02/13/10 Given Ambulat ory Pharmac y influenza virus vaccine, split virus (incl. purified surface antigen)-reti red CODE 1 2009 [id number] 15 Sanofi Pasteur ([facility]) complet ed influenza virus vaccine, split virus (incl. purified surface antigen)- retired CODE DoD Novel influenza-H1N 1-09, injectable 2009 [id number] 1 127 Novartis Pharmaceutica ls complet ed Novel influenza -W2R9-97, injectabl e 07/08/09 Given Ambulat ory Pharmac y Novel influenza-H1N 1-09, injectable 1 2009 [id number] 1 127 Novartis Pharmaceutica l Gareth. (NOV) complet ed Novel influenza -F6S3-93, injectabl e DoD influenza virus vaccine,split 2009 15 complet ed influenza virus vaccine,s plit 04/14/09 Given Ambulat ory Pharmac y influenza virus vaccine, split virus (incl. purified surface antigen)-reti red CODE 2 2009 15 Transcribed (TRS) complet ed influenza virus vaccine, split virus (incl. purified surface antigen)- retired CODE DoD influenza virus vaccine, live 2007 [id number] [employer] comple t ed influenza virus vaccine, live 11/25/07 Given Ambulat ory Pharmac y influenza virus vaccine, live, attenuated, for intranasal use 1 2007 [id number] 111 [employer] (MED) complet ed influenza virus vaccine, live, attenuate d, for intranasa l use [facility] typhoid Vi capsular polysaccharid e vac 2007 [id number] 101 sanofi pasteur complet ed typhoid Vi capsular polysacch aride vac 11/03/07 Given Ambulat ory Pharmac y typhoid Vi capsular polysaccharid e vaccine 1 2007 [id number] 101 Sanofi Pasteur ([facility]) complet ed typhoid Vi capsular polysacch aride vaccine DoD influenza virus vaccine,split 2006 15 complet ed influenza virus vaccine,s plit 01/21/07 Given Ambulat ory Pharmac y influenza virus vaccine, split virus (incl. purified surface antigen)-reti red CODE 1 2006 15 Transcribed (TRS) complet ed influenza virus vaccine, split virus (incl. purified surface antigen)- retired CODE DoD influenza virus vaccine,split 2005 [id number] 15 sanofi pasteur complet ed influenza virus vaccine,s plit 01/01/06 Given Ambulat ory Pharmac y influenza virus vaccine, split virus (incl. purified surface antigen)-reti red CODE 1 2005 [id number] 15 Sanofi Pasteur ([facility]) complet ed influenza virus vaccine, split virus (incl. purified surface antigen)- retired CODE [facility] influenza virus vaccine, whole virus 2004 [id number] 16 sanofi pasteur complet ed influenza virus vaccine, whole virus 01/14/05 Given Ambulat ory Pharmac y influenza virus vaccine,split 2004 [id number] 15 sanofi pasteur complet ed influenza virus vaccine,s plit 01/14/05 Given Ambulat ory Pharmac y influenza virus vaccine, split virus (incl. purified surface antigen)-reti red CODE 1 2004 [id number] 15 Sanofi Pasteur ([facility]) complet ed influenza virus vaccine, split virus (incl. purified surface antigen)- retired CODE [facility] influenza virus vaccine, whole virus 1 2004 [id number] 16 Sanofi Pasteur ([facility]) complet ed influenza virus vaccine, whole virus DoD influenza virus vaccine, whole virus 2003 [id number] 16 Novartis Pharmaceutica complet ed influenza virus vaccine, whole virus 11/22/03 Given Ambulat ory Pharmac y anthrax vaccine 2003 [id number] [employer] complet ed anthrax vaccine 11/22/03 Given Ambulat ory Pharmac y influenza virus vaccine, whole virus 0 2003 [id number] 16 [employer] (PWJ) complet ed influenza virus vaccine, whole virus DoD anthrax vaccine 5 2003 [id number] 24 [facility] complet ed anthrax vaccine DoD typhoid vaccine, parenteral 2003 [id number] 41 sanofi pasteur complet ed typhoid vaccine, parentera l 07/12/03 Given Ambulat ory Pharmac y typhoid vaccine, parenteral, other than acetone-kille d, dried 0 2003 [id number] 41 Sanofi Pasteur (PMC) complet ed typhoid vaccine, parentera l, other than acetone-k illed, dried DoD anthrax vaccine 2003 [id number] 24 [employer] complet ed anthrax vaccine 04/19/03 Given Ambulat ory Pharmac y anthrax vaccine 4 2003 [id number] 24 [facility] ([facility]) complet ed anthrax vaccine DoD influenza virus vaccine, whole virus 2002 16 complet ed influenza virus vaccine, whole virus 02/26/03 Given Ambulat ory Pharmac y influenza virus vaccine, whole virus 0 2002 16 () complet ed influenza virus vaccine, whole virus DoD tuberculin purified protein derivative 2002 96 complet ed tuberculi n purified protein derivativ e 11/23/02 Given Ambulat ory Pharmac y vaccinia (smallpox) vaccine 2002 [id number] 75 [facility] complet ed vaccinia (smallpox ) vaccine 04/24/02 Given Ambulat ory Pharmac y vaccinia (smallpox) vaccine 0 2002 [id number] 75 [facility] ([facility]) complet ed vaccinia (smallpox ) vaccine DoD anthrax vaccine 2001 [id number] 24 [employer] complet ed anthrax vaccine 03/03/02 Given Ambulat ory Pharmac y anthrax vaccine 2 2001 [id number] 24 [facility] ([facility]) complet ed anthrax vaccine DoD anthrax vaccine 2001 [id number] 24 [employer] complet ed anthrax vaccine 02/16/02 Given Ambulat ory Pharmac y anthrax vaccine 1 2001 [id number] 24 Emergent [facility] ([facility]) complet ed anthrax vaccine DoD hepatitis B adult vaccine 2001 [id number] 43 [employer]ck & [employer] Inc complet ed hepatitis B adult vaccine 01/09/02 Given Ambulat ory Pharmac y influenza virus vaccine, whole virus 2001 [id number] 16 Unknown complet ed influenza virus vaccine, whole virus 01/09/02 Given Ambulat ory Pharmac y influenza virus vaccine, whole virus 0 2001 [id number] 16 Unknown (UNK) comple t ed influenza virus vaccine, whole virus DoD hepatitis B vaccine, adult dosage 3 2001 [id number] 43 Merck (MSD) complet ed hepatitis B vaccine, adult dosage DoD hepatitis B adult vaccine 2001 [id number] 43 [employer]ck & Company Inc complet ed hepatitis B adult vaccine 05/30/01 Given Ambulat ory Pharmac y typhoid vaccine, parenteral 2001 [id number] 41 sanofi pasteur complet ed typhoid vaccine, parentera l 05/30/01 Given Ambulat ory Pharmac y typhoid vaccine, parenteral, other than acetone-kille d, dried 0 2001 [id number] 41 Sanofi Pasteur ([facility]) complet ed typhoid vaccine, parentera l, other than acetone-k illed, dried DoD hepatitis B vaccine, adult dosage 2 2001 [id number] 43 Merck (MSD) complet ed hepatitis B vaccine, adult dosage DoD tuberculin purified protein derivative 2001 [id number] complet ed tuberculi n purified protein derivativ e 05/19/01 Given Ambulat ory Pharmac y hepatitis B adult vaccine 2001 [id number] 43 Merck & Company Inc complet ed hepatitis B adult vaccine 04/22/01 Given Ambulat ory Pharmac y yellow fever vaccine 2001 [id number] 37 sanofi pasteur complet ed yellow fever vaccine 04/22/01 Given Ambulat ory Pharmac y yellow fever vaccine 0 2001 [id number] 37 Sanofi Pasteur ([facility]) complet ed yellow fever vaccine DoD hepatitis B vaccine, adult dosage 1 2001 [id number] 43 Merck (MSD) complet ed hepatitis B vaccine, adult dosage DoD hepatitis A adult vaccine 2001 [id number] 52 Merck & Company Inc complet ed hepatitis A adult vaccine 04/21/01 Given Ambulat ory Pharmac y hepatitis A vaccine, adult dosage 2 2001 [id number] 52 Merck (MSD) complet ed hepatitis A vaccine, adult dosage DoD influenza virus vaccine, whole virus 2000 16 complet ed influenza virus vaccine, whole virus 01/23/01 Given Ambulat ory Pharmac y tetanus-dipht h toxoids (Td) adult/adol 2000 09 complet ed tetanus-d iphth toxoids (Td) adult/ado l 01/23/01 Given Ambulat ory Pharmac y tetanus and diphtheria toxoids, adsorbed, preservative free, for adult use (2 Lf of tetanus toxoid and 2 Lf of diphtheria toxoid) 0 2000 09 () complet ed tetanus and diphtheri a toxoids, adsorbed, preservat ronn free, for adult use (2 Lf of tetanus toxoid and 2 Lf of diphtheri a toxoid) DoD influenza virus vaccine, whole virus 0 2000 16 () complet ed influenza virus vaccine, whole virus DoD measles, mumps and rubella virus vaccine 0 2000 03 () Not Given measles, mumps and rubella virus vaccine DoD varicella virus vaccine 1 2000 21 () Not Given varicella virus vaccine DoD tuberculin purified protein derivative 2000 [id number] [employer] complet ed tuberculi n purified protein derivativ e 05/05/00 Given Ambulat ory Pharmac y hepatitis A adult vaccine 2000 [id number] 52 Merck & Company Inc complet ed hepatitis A adult vaccine 05/05/00 Given Ambulat ory Pharmac y meningococcal polysaccharid e (MPSV4) 2000 [id number] 32 [employer] complet ed meningoco ccal polysacch aride (MPSV4) 05/05/00 Given Ambulat ory Pharmac y influenza virus vaccine, whole virus 2000 [id number] 16 [employer] complet ed influenza virus vaccine, whole virus 05/05/00 Given Ambulat ory Pharmac y poliovirus vaccine, inactivated 2000 [id number] 10 sanofi pasteur complet ed polioviru s vaccine, inactivat ed 05/05/00 Given Ambulat ory Pharmac y poliovirus vaccine, inactivated 0 2000 [id number] 10 Sanofi Pasteur ([facility]) complet ed polioviru s vaccine, inactivat ed DoD influenza virus vaccine, whole virus 0 2000 [id number] 16 [employer]-Mannyjasiel (WAL) complet ed influenza virus vaccine, whole virus DoD meningococcal polysaccharid e vaccine (MPSV4) 0 2000 [id number] 32 [place] (CON) complet ed meningoco ccal polysacch aride vaccine (MPSV4) DoD hepatitis A vaccine, adult dosage 1 2000 [id number] 52 Merck (MSD) complet ed hepatitis A vaccine, adult dosage DoD Results Combined list of recent chemistry, hematology and other laboratory results from Department of Defense and Veterans Affairs, ranging from 15 months to all on record, depending upon the facility. Order Name Results Value Reference Range Date Interpretation Specimen Comments Source Infectio us Disease HIV-1/O/2 Non-Reac tive 1 (05/25/23 12:14 PM) 05/24 N Interpretiv e Data: INTERPRETAT ION: This method is a screening procedure for the detection of HIV p24 Antigen and Antibodies to HIV-1, including Group O, and/or HIV-2. NON-REACTIV E: HIV-1 antigen and HIV-1 / HIV-2 antibodies were not detected. No laboratory evidence of HIV infection. A negative test result does not exclude the possibility of exposure to or infection with HIV. HIV antibodies and/or p24 antigen may be undetectabl e in some stages of the infection and in some clinical conditions. If acute HIV infection is suspected, consider submitting another specimen to a reference laboratory for HIV-1 RNA. SCREEN REACTIVE - CONFIRMATIO N TO FOLLOW: Possible presence of HIV-1antibo dies, HIV-2 antibodies and/or HIV-1 p24 antigen. Specimen will reflex to the confirmatio n testing that fulfills the Center for Disease Control and Prevention' s HIV diagnostic algorithm. Refer to [facility] Lab Guide for additional information : [email or web address] x Testing performed by Zaira peralta. [facility] Miscella ra Sendouts Repository Sample Received (05/25/23 12:14 PM) 05/24 N [facility] Vital Signs Combined list of inpatient and outpatient Vital Signs from Department of Defense and Veterans Affairs, ranging from 12 months to all on record, depending upon the facility. Vital Sign Value Date Comments Source No data available for this section Ambulatory Pharmacy Encounters Combined list of: 1) Encounters from Department of [facility] facilities going back up to thelast 18 months. 2) Encounters from the Department of Defense facilities going back up to 280 months. Location Location Details Encounter Type Encounter Number Reason For Visit Attending Provider ADM Date DC Date Status Disposition Source [facility] [address](AFN G [address] Med Sq-FM) OUTPATIENT [id number] Notes Entered by: NICO GARCIA R 16 Sep 2016 0835 ------- ------- ------- ------- -- [employer] ice ROSIQ TIFFANIE GARCIA 09/16 Released w/o Limitations [facility] [place] [address](A FNG [address] Med Sq-FM) [place] [address](AFN G [address] Med Sq-FM) OUTPATIENT [id number] Notes Entered by: VON MCQUEEN 17 Mar 2017 1202 ------- ------- ------- ------- -- Rx EVENS BYRNE 03/17 Released w/o Limitations [facility] [address](A FNG [address] Med Sq-FM) [facility] [place] [address](AFN G 104 Med Sq-FM) OUTPATIENT [id number] Notes Entered by: KENZIE HUGO 15 Nov 2017 1511 ------- ------- ------- ------- -- KENZIE ROACH 11/15 Released w/o [place]itations [place] [address](A FNG 104 Med Sq-FM) [place] [address](AFN G [address] Med Sq-FM) OUTPATIENT [id number] Notes Entered by: REJI GIRALDO 11 May 2018 1022 ------- ------- ------- ------- -- EVENS RAMSAY 05/11 Released [facility] Limitations [facility] [place] [address](A FNG [address] Med Sq-FM) [facility] [place] [address](AFN G 104 Med Sq-FM) OUTPATIENT [id number] Notes Entered by: CRUZ SPARKS 11 May 2018 1148 ------- ------- ------- ------- -- DEL BOWIE 05/11 Released w/o Limitations [facility] [place] [place] [address](A FNG 104 Med Sq-FM) [place] [address](AFN G 104 Med Sq-FM) OUTPATIENT [id number] Notes Entered by: CRUZ SPARKS 24 Mar 2019 1522 ------- ------- ------- ------- -- DEL BOWIE 03/24 Released w/o Limitations [facility] [place] [address](A FNG 104 Med Sq-FM) [place] [address](AFN G 104 Med Sq-FM) OUTPATIENT [id number] Notes Entered by: MAGGIE DE OLIVEIRA 24 Jun 2020 0937 ------- ------- ------- ------- -- Annual Audiogr am KENZIE HUGO 06/24 Released w/o Limitations [facility] [place] [address](A FNG 104 Med Sq-FM) [facility](Health Promotion & Wellness MA) OUTPATIENT [id number] [id number] DEL LERMA 11/20 Released w/o Limitations [facility](Hea lth Promoti on & Wellnes s [place]) [facility](AMH M01D Valor) TELE CONSULT [id number] Notes Entered by: GILBERT SALVADOR 09 Dec 2020 1334 ------- ------- ------- ------- -- BHAVNAID Jeremiahina tion Locatio n Change IGLBERT SALVADOR 12/09 Released to Self Care [facility](AMH M01D Valor) [facility] Well[facility] MA) OUTPATIENT [id number] PFIZER# 2 MAU SPENCER A 12/11 Released w/o Limitations [facility] Promoti on & Wellnes s [place]) [facility] [address](AFN G 104 Med Sq-FM) OUTPATIENT [id number] Notes Entered by: MARCEL LINK 20 May 2021 1003 ------- ------- ------- ------- -- Audiogr am/TIFFANIE GALLEGOS 05/20 Released w/o Limitations [facility] [place] [address](A FNG 104 Med Sq-FM) [place] [address](AFN G 104 Med Sq-FM) OUTPATIENT [id number] Notes Entered by: MAGGIE DE OLIVEIRA 04 Jun 2021 1221 ------- ------- ------- ------- -- Follow- Up Audiogr am KENZIE HUGO 06/04 Released w/o Limitations [facility] [place] [address](A FNG 104 Med Sq-FM) [place] [address](AFN G 104 Med Sq-FM) TELE CONSULT [id number] KENZIE HUGO 09/24 [facility] [place] [address](A FNG 104 Med Sq-FM) 8203R-104 MDG Care Not Rendered [id number] 05/24 Discharge Disposition: Home or Self Care 8203R-1 04 [facility] 8203R-104 [facility] Outpatient [id number] ROGELIO CARDONA 05/29 Discharge Disposition: Home or Self Care 8203R-1 04 G 8203R-104 G Care Not Rendered [id number] 06/13 Discharge Disposition: Home or Self Care 8203R-1 04 [place] 8203R-104 G Between Visit [id number] 01/14 Discharge Disposition: Home or Self Care 8203R-1 04 [place] 8203R-104 [facility] Between Visit [id number] 02/05 Discharge Disposition: Home or Self Care 8203R-1 04 G Procedures Combined list of: 1) Procedures from Department of Veterans Affairs facilities going back up to thelast 18 months, not all VA non-surgical procedures are included; 2) All procedures from the Department of Defense facilities. Procedure Procedure Type Code Date Perfomer Comments Sourc e No data available for this section Ambul[facility] ry Pharmacy PSYCHOLOGICAL TSTING (INCL PSYCHODIAG ASSESSMNT, EMOTITY, INTELLECTUAL ABILITIES, PERSONALITY &PSYCHOPATHOLOGY, EG, MMPI), ADMINISTERED COMPUTER, W QUALIFIED HEALTH WEB APPLICATIONS PROGRAMMER INTERPRET &RPT 007 DoD IMMUNIZATION ADM,INTRAMUSCULAR INJ,SEVERE AC RESPIRATORY SYNDROME CORONAVIR 2 (SARSCOV-2) (CORONAVIR DIS [COVID-19]) VACC,MRNALNP,SPIKE PROT,PRESRV FREE,30 MCG/0.3ML DOS,DILUENT RECONSTITUT;2ND DOSE 021 DoD IMMUNIZATION ADM,INTRAMUSCULAR INJ,SEVERE AC RESPIRATORY SYNDROME CORONAVIR 2 (SARSCOV-2) (CORONAVIR DIS [COVID-19]) VACC,MRNALNP,SPIKE PROT,PRESRV FREE,30 MCG/0.3ML DOS,DILUENT RECONSTITUT;1ST DOSE 021 DoD SELF-CARE/HOME MANAGMENT TRAIN (EG,ACT OF DAILY LIVING (ADL) &COMPENSAT TRAIN,MEAL PREPARATION,SAFETY PROCS,AND INSTRUCT IN USE OF ASST TECHNOLOGY DEV/ADPT EQUIP) DIR ONE-ON-ONE CONT,EA 15 MINUTES 06/11/2 001 DoD APPLICATION OF A MODALITY TO 1 OR MORE AREAS; HOT OR COLD PACKS [facility] THERAPEUTIC PROCEDURE, 1 OR MORE AREAS, EACH 15 MINUTES; GAIT TRAINING (INCLUDES STAIR CLIMBING) [facility] OPHTHALMOLOGICAL SERVICES: MEDICAL EXAMINATION AND EVALUATION, WITH INITIATION OR CONTINUATION OF DIAGNOSTIC AND TREATMENT PROGRAM; COMPREHENSIVE, ESTABLISHED PATIENT, 1 OR MORE VISITS [facility] Psychiatric Diagnostic Evaluation Comprehensive Examination Psychiatric Diagnostic Evaluation Comprehensive Examination [id number] LUKE TORRES [facility] Vaccine SARS-CoV-2 mRNA-LNP Mohamud Protein Preservative Free 30mcg/0.3mL Diluent Reconstituted IM Vaccine SARS-CoV-2 mRNA-LNP Mohamud Protein Preservative Free 30mcg/0.3[place] [id number] MULUGETA PRESLEY COVID-19 Pfizer; Series #: 1; 0.3 mL; IM; Left Arm; Mfg: [employer]; Lot: [id number]. [facility] Vacc SARS-CoV-2 mRNA-LNP Mohamud Protein Preservative Free 30mcg/0.3mL Diluent Reconstituted IM First Dose Vacc SARS-CoV-2 mRNA-LNP Mohamud Protein Preservative Free 30mcg/0.3mL Diluent Reconstituted IM First Dose 0001A MULUGETA PRESLEY [facility] Vaccine SARS-CoV-2 mRNA-LNP Mohamud Protein Preservative Free 30mcg/0.3mL Diluent Reconstituted IM Vaccine SARS-CoV-2 mRNA-LNP Mohamud Protein Preservative Free 30mcg/0.3[place] [address] DEBBIE CROWDER COVID-19 DNA Games (COMIRNAT) ; Series #: 2; 0.3 mL; IM; Left Arm; Mfg: [employer], [employer]; Lot: [id number]. [facility] Vacc SARS-CoV-2 mRNA-LNP Mohamud Protein Preservative Free 30mcg/0.3mL Diluent Reconstituted IM Second Dose Vacc SARS-CoV-2 mRNA-LNP Mohamud Protein Preservative Free 30mcg/0.3mL Diluent Reconstituted IM Second Dose 0002A DEBBIE CROWDER [facility] Social History Combined list of available smoking, tobacco, and other social history from Department of Defense and Veterans Affairs facilities. Social History Type Response Date Comment Sour e Female 06/17/2021 Ambulatory Pha rmacy Sexual Orientation Ambula tory Pharmacy Gender identity Ambulator y Pharmacy This section is an empty soc ial history section. DoD Assessment and Plan Combined list of future care activities from Department of Defense and Veterans Affairs facilities (e.g., assessment and plan notes, appointments, orders, and referrals). Additional future care activities may be listed in the Plan of Care section. Result Assessment and Plan Date Source Assessment and Plan Extracted from:Title : Permanent Hearing Shift Author: NICKY TAYLOR Date: 06/19/23 Based on provider note/visit from Jun, member has not been referred to a civilian screen handler. Hearing loss is not significant enough to trigger an OSHA reportable hearing loss investigation. PH will re-establish member's baseline in the left ear and continue annual surveillance and monitor annual hearing tests for further hearing loss. Extracted from:Title: Office Clinic Note Author: KENZIE HUGO PA Date: 06/14/23 Permanent shift left ear as compared with 2003, now is similar to what right ear has been for the last 6 years. 04/09/2024 Ambulatory Pharmacy Functional Status Combined list of recent functional and cognitive assessments recorded at Department of Defense and Veterans Affairs (VA).VA Functional [place] Measurement (FIM) Scale: 1 = Total Assistance (Subject = 0% +), 2 = Maximal Assistance (Subject = 25% +), 3 = Moderate Assistance (Subject = 50% +), 4 = Minimal Assistance (Subject = 75% +), 5 = Supervision, 6 = Modified [place] (Device), 7 = Complete [place] (Timely, Safely). Assessment Date/Time Source Assessment Type Assessment Skill Assessment Score Assessment Details No data available for this section
== END 2024-04-09 14:24 | disposition home or self-care (01) ==
LOC: HO.MAMMO 14:23
PROVIDERS: PCP Physician Assistant; Visit Provider Physician Assistant
DX: Z12.31 Encounter for screening mammogram for malignant neoplasm of breast (principal)
CPT/HCPCS: 77063; 77067

== ENCOUNTER → 2024-04-09 14:45 | Outpatient (BNV) | payer OTHER, SELFPAY | PROVIDERS: PCP Physician Assistant; Visit Provider Internal Medicine | DX: Z12.31 Encounter for screening mammogram for malignant neoplasm of breast (principal) | CPT/HCPCS: 77063; 77067 ==

== ENCOUNTER 2024-04-13 15:17 | Emergency (ER) | payer OTHER, SELFPAY ==
--- NOTE | ~2024-04-13 | XR_ITS ---
CLINICAL HISTORY: cp 2 view chest x-ray. Comparison: CR/SR - XR CHEST 2V - 06/15/23 10:00 EDT Findings: The lungs are adequately expanded. No focal consolidation. No effusion or pneumothorax. Cardiac and mediastinal contours are within normal limits. No acute osseous abnormality Impression: No acute process. This document has been electronically signed by: Erik Grimes MD on 04/13/2024 15:57:26
--- NOTE | 2024-04-13 15:19 | ECG_ITS ---
Test Reason : CHEST PAIN Blood Pressure : */* mmHG Vent. Rate : 76 BPM Atrial Rate : 76 BPM P-R Int : 180 ms QRS Dur : 76 ms QT Int : 362 ms P-R-T Axes : 16 28 32 degrees QTcB Int : 407 ms Normal sinus rhythm Septal infarct , age undetermined , could be related to body habitus and lead placement Abnormal ECG No previous ECGs available Referred By: Rosie Deal Electronically Signed By: ROSITA BONNER
[2024-04-13 15:31] VITALS: BP 146/96; PULSE 81; RESP 19; TEMP 36.6; O2SAT 98; BMI 26.3
--- NOTE | 2024-04-13 15:31 | ED_ITS ---
HPI - Chest Pain General Chief Complaint: Chest Pain Stated Complaint: chest pain Time Seen by Provider: 04/13/24 15:49 Source: patient, RN notes reviewed and old records reviewed Mode of arrival: ambulatory Limitations: no limitations History of Present Illness ED Provider: Chema HPI narrative: Patient is a 43-year-old female with history of migraines, MDD, insomnia presenting to the emergency department with sudden onset chest pain and upper back pain as well as left arm numbness and tingling while sitting at her desk at work prior to arrival. She describes this as a pressure between her chest and her back. Reports palpitations earlier in the week but none today. Associated lightheadedness, headache. Also notes that she had a full body rash earlier in the week which she typically develops before becoming sick with an illness. She reports significant amount of stress at work. She is not on OCPs, denies recent travel, denies recent calf pain or swelling, recent surgery or immobilization. Took two 81mg ASA prior to arrival, pain has since resolved. MD complaint: chest pain Onset (ago): hour(s) Timing of current episode: now resolved Prior episodes: No Onset: during rest Pain location: left chest and posterior Treatment prior to arrival: aspirin Related Data Previous Rx's ?Medication ?Instructions ?Recorded cetirizine 10 mg tablet (Zyrtec) 10 mg PO DAILY allergy symptoms 90 01/27/22 days #90 tabs rizatriptan 10 mg tablet See Rx Instructions PO .COMPLEX 10 11/24/22 days #10 tabs gabapentin 800 mg tablet 800 mg PO Q12H 90 days #180 tabs 04/27/23 ibuprofen 800 mg tablet 800 mg PO TID #90 tabs 04/27/23 prednisone 10 mg tablet 10 mg PO DAILY #28 tabs 06/15/23 azithromycin 250 mg tablet See Rx Instructions PO .COMPLEX #6 07/12/23 tabs fluticasone propionate 50 2 spray intranasal DAILY #48 mL 02/04/24 mcg/actuation nasal spray,suspension cyclobenzaprine 10 mg tablet 10 mg PO BEDTIME 30 days #30 tabs 02/06/24 zolpidem 12.5 mg tablet,extended 12.5 mg PO BEDTIME 30 days #30 tabs 03/18/24 release,multiphase Allergies Allergy/AdvReac Type Severity Reaction Status Date / Time Penicillins [PCN] Allergy Intermediate HIVES Verified 04/13/24 15:33 Review of Systems 2 Review of Systems: As per HPI. Yes all other systems are reviewed and are negative Constitutional: Constitutional: Reports as per HPI [facility] Past Medical History Medical History Dermatitis Migraine aura without headache Microscopic hematuria Surgical History History of ectopic History of appendectomy Status post excision of lipoma History of tonsillectomy Family History Family History Father CVD (cardiovascular disease) Diabetes CAD (coronary artery disease) Cancer Mother Diabetes Sister Asthma Sister Emphysema lung Son In good health Daughter In good health Social History Social History Housing: House Alcohol intake: current Alcohol intake frequency: holidays/special occasions only Alcohol type: wine Patient Tobacco Use Status: Never used Tobacco e-Cigarette/Vaping Use: Never Used Second Hand Smoke Exposure: No Advance Directives: Yes Advance Directives Information Provided: No Advance Directives on File: No Do you have a plan to hurt others: No Plan service: Yes Current occupational status: employed Current occupation: - [employer] Cognitive needs: No Hearing needs: No Vision needs: No Physical Exam 2 Vital Signs: Vital Signs: Last Vital Signs Temp 98.2 F 04/13/24 20:10 Pulse 69 04/13/24 20:10 Resp 18 04/13/24 20:10 BP 114/69 04/13/24 20:10 Pulse Ox 100 04/13/24 20:10 O2 Del Method Room Air 04/13/24 20:10 BMI result Body Mass Index 26.3 Vital signs have been reviewed and appear to be correct. Blood pressure mildly elevated. Heart rate normal. Respiratory rate normal. Temperature normal. Oxygen saturation normal. Const: General: cooperative, healthy appearing and no acute distress O rientation/consciousness: oriented to person, oriented to place, oriented to time and patient oriented x3 Limitations: no limitations HEENT: Head: Yes normocephalic and Yes atraumatic Ears: external ears normal General nose exam: Normal external nose present Face and sinus: Yes face symmetric Mouth: oropharynx normal and moist mucous membranes T hroat: Yes uvula midline Eyes: Pupils: Equal, round and reactive pupils present Neck: Neck: Yes normal visual inspection and Yes supple Resp: Effort & Inspection: normal respiratory effort and able to speak in complete sentences Auscultation: clear to auscultation bilaterally Cardio: Rate: regular rate Rhythm: regular rhythm Heart sounds: S1 normal heart sound present and S2 normal heart sound present GI: Palpation (GI): Soft to palpation and nontender Auscultation: n ormoactive bowel sounds : General: Yes no CVA tenderness Back/Spine/Pelvis: Back: no CVA tenderness Skin: General skin exam: elasticity normal and turgor normal Neuro: General: oriented to person, oriented to place, oriented to time, patient oriented x3, moves all extremities, no focal motor deficits and CN's II- XI intact bilaterally Cranial nerves: Yes Equal, round and reactive pupils present Cognition (Neuro): normal cognition Extrem: General: Yes full ROM, Yes no pedal edema and Yes no calf tenderness Psych: Mental Status: mental status grossly normal Affect: normal affect Thought process: Normal thought process present Course Course Course Narrative: This is a Rapid Medical Exam performed in triage by Rosie Deal PA-C. Full HPI, ROS and PE to be performed by primary ED provider. 43yo F presenting to the ED c/o chest pain while at rest @1330 today w/assoc LUE tingling & back pain. Also reports BECK & lightheaded/dizziness PE: Ambulating w/steady gait, talking in complete sentences, no respiratory distress Plan: labs, ekg, CXR, viral testing Medications Administered Discontinued Medications Generic Name Dose Route Start Last Admin Trade Name Julia PRN Reason Stop Dose Admin Acetaminophen 650 mg 04/13/24 17:54 04/13/24 17:57 Acetaminophen 325 Mg Tablet PO 04/13/24 17:55 650 mg ONCE ONE Administration Medical Decision Making Medical Decision Making [facility] Narrative: Patient is a 43-year-old female with history of migraines, MDD, insomnia presenting to the emergency department with sudden onset chest pain and upper back pain as well as left arm numbness and tingling while sitting at her desk at work prior to arrival. On exam patient is awake, A+Ox3, BP mildly elevated, VS otherwise WNL, afebrile, normal neurological exam without focal deficits, physical exam findings as above. Given reported symptoms and physical exam findings, initial differential includes but is not limited to ACS, musculoskeletal pain, anxiety. Unlikely PE, PERC 0. Labs notable for no leukocytosis, no anemia, no significant electrolyte abnormalities, negative troponin x 2. Viral serology negative. X-ray chest notable for no evidence of pneumonia, pneumothorax, cardiomegaly. My interpretation is in agreement with the radiologist's interpretation. HEART score 0. Feel patient is stable for discharge. Return precautions discussed. Patient verbalized understanding of and agreement with plan. Differential Diagnosis Differential Diagnoses: The differential diagnosis associated with the presentation includes As per [facility] Admission/Observation Consideration of admission/observation: Escalation of care including admission/observation considered Patient would have been admitted to the hospital had their work up had any findings where hospital admission was appropriate and their clinical presentation warranted hospital admission. Lab Data [facility] Lab Attestation statement: I reviewed the patient's lab results. As per [facility] 04/13/24 16:04 04/13/24 16:04 Labs: Lab Results 04/13/24 04/13/24 Range/Units 16:04 19:12 WBC 7.4 (4.8-10.8) X10*3/uL RBC 4.47 (4.20-5.50) X10*6/uL Hgb 13.8 (12.0-16.0) g/dl Hct 40.4 (37.0-47.0) % MCV 90.4 (80.0-98.0) fL MCH 30.9 (27.0-33.0) pg MCHC 34.2 (31.0-35.0) g/dl RDW 12.1 (11.0-16.0) % Plt Count 253 (160-400) X10*3/uL MPV 9.5 (9.4-12.3) fL Immature Gran % (Auto) 0.1 (0.0-0.4) % Neut % (Auto) 56.0 (45-73) % Lymph % (Auto) 32.1 (20-40) % [place] % (Auto) 7.2 (2-11) % Eos % (Auto) 3.8 (0-4) % Baso % (Auto) 0.8 (0-2) % Lymph # (Auto) 2.4 (1.2-4.9) X10*3/uL [place] # (Auto) 0.5 (0.1-1.2) X10*3/uL Eos # (Auto) 0.3 (0.0-0.4) X10*3/uL Baso # (Auto) 0.1 (0.0-0.2) X10*3/uL Abs Immat Gran (auto) 0.01 (0.00-0.03) X10*3/uL Absolute Neuts (auto) 4.1 (2.0-8.3) x10*3/uL Absolute Nucleated RBC 0.000 (0.0-0.012) X10*3/uL Nucleated RBC % (auto) 0.0 (0.0-0.2) /100WBC Sodium 140 (135-145) mmol/L Potassium 3.7 (3.3-5.1) mmol/L Chloride 107 (96-108) mmol/L Carbon Dioxide 23 (22-29) mmol/L Anion Gap 14 (12-20) BUN 20 H (9-16) mg/dL Creatinine 0.67 (0.5-1.4) mg/dL Estim Creat Clear Calc 112.5 Estimated GFR > 60 Random Glucose 84 (60-115) mg/dL Calcium 10.2 D (8.4-10.2) mg/dL Magnesium 2.4 (1.6-2.6) mg/dL Total Bilirubin 0.3 (0.0-1.0) mg/dL Direct Bilirubin 0.1 (0.0-0.5) mg/dL AST 22 (5-31) U/L ALT 23 (0-31) U/L Alkaline Phosphatase 46 (39-117) U/L Troponin I High Sens < 2.7 < 2.7 (<3.5-17.0) ng/L Total Protein 7.7 (6.5-8.0) g/dL Albumin 5.0 (3.5-5.0) g/dL TSH 2.79 (0.32-4.0) uIU/mL Influenza Type A (PCR) NEGATIVE (Negative) Influenza Type B (PCR) NEGATIVE (Negative) RSV RNA Qual (PCR) NEGATIVE (Negative) SARS-CoV-2 RNA (RT-PCR) NEGATIVE (Negative) Independent Interpretation I performed an independent interpretation of an: EKG (normal sinus rhythm, rate 76bpm, normal MD interval and QTc, T wave inversion in V1 only) and Plain X-Ray Interpretation: No evidence of pneumonia pneumothorax on CXR Radiology Impression Discussion of test interpretation with radiology: I have reviewed the radiologist's reading. Radiologist Impression: 2 view chest x-ray. Comparison: CR/SR - XR CHEST 2V - 06/15/23 10:00 EDT Findings: The lungs are adequately expanded. No focal consolidation. No effusion or pneumothorax. Cardiac and mediastinal contours are within normal limits. No acute osseous abnormality Impression: No acute process. External Record Review External record reviewed: Inpatient record, Office record and Outpatient record Attestation Attending Attestation: I was personally present and available for consultation in the ED. I have reviewed everything on the chart that is available and agree with the documentation provided by the JULIET including discussion about the assessment, treatment plan and discussion. Based on medical record the care appears appropriate. Leoncio Caro MD [facility] Emergency Medicine Scores Heart Score History: -0- slightly suspicious ECG: -0- normal Age: -0- < or = 45 Risk factory: -0- no risk factors known Troponin: -0- < or = normal limit Score: 0 Risk: 1.7% Discharge Plan Discharge Clinical Impression: Atypical chest pain Patient Disposition: Home, Self-Care Instructions: Noncardiac Chest Pain (ED) Additional Instructions: You were evaluated in the emergency department today for chest pain. Your evaluation has shown no signs of medical conditions requiring emergent intervention at this time, however we recommend that you follow-up with your primary care physician. Please schedule an appointment for follow-up with your primary care physician as soon as possible. Return to the emergency department if you experience worsening or uncontrolled chest pain, shortness of breath, lightheadedness, feeling faint, loss of consciousness, nausea, vomiting, or any other concerning symptoms. Prescriptions: No Action rizatriptan 10 mg tablet See Rx Instructions PO .COMPLEX 10 Days Qty: 10 6RF Rx Instructions: take 1 tab at onset of headache; if no relief may repeat 1 tab after at least 2 hrs; max = 3 tabs/24 hr PO gabapentin 800 mg tablet 800 mg PO Q12H 90 Days Qty: 180 3RF ibuprofen 800 mg tablet 800 mg PO TID Qty: 90 11RF azithromycin 250 mg tablet See Rx Instructions PO .COMPLEX Qty: 6 0RF Rx Instructions: For 250 mg dose pack: take 500 mg today (day 1), then 250 mg for 4 days (days 2-5) PO fluticasone propionate 50 mcg/actuation spray,suspension 2 spray intranasal DAILY Qty: 48 0RF cyclobenzaprine 10 mg tablet 10 mg PO BEDTIME 30 Days Qty: 30 6RF zolpidem 12.5 mg tablet,ext release multiphase 12.5 mg PO BEDTIME 30 Days Qty: 30 3RF prednisone 10 mg tablet 10 mg PO DAILY Qty: 28 0RF Rx Instructions: 6 pills by mouth day 1, 6 pills by mouth day 2, 5 pills by mouth day 3, 4 pills by mouth day 4, 3 pills by mouth day 5, 2 pills by mouth day 6, 1 pill by mouth day 7 and 1 pill by mouth day 8. cetirizine [Zyrtec] 10 mg tablet 10 mg PO DAILY 90 Days Qty: 90 3RF Stand Alone Forms: Work/School Release Interventions: ED Discharge Assessment Last Done: 04/13/24 20:10 Discharge Date/Time: 04/13/24 20:11 Print Language: Slovenian
[2024-04-13 16:18] LABS: MANUAL DIFF FLAG NO
[2024-04-13 16:21] LABS: Basophils Absolute Auto 0.1 X10*3/uL (0.0-0.2); Basophils Percent Auto 0.8 % (0-2); Eosinophils Absolute Auto 0.3 X10*3/uL (0.0-0.4); Eosinophils Percent Auto 3.8 % (0-4); Hematocrit 40.4 % (37.0-47.0); Hemoglobin 13.8 g/dl (12.0-16.0); Imm Gran Abs Auto 0.01 X10*3/uL (0.00-0.03); Imm Gran Pct Auto 0.1 % (0.0-0.4); Lymphocytes Absolute Auto 2.4 X10*3/uL (1.2-4.9); Lymphocytes Percent Auto 32.1 % (20-40); Mean Corpuscular HGB Conc 34.2 g/dl (31.0-35.0); Mean Corpuscular Hemoglobin 30.9 pg (27.0-33.0); Mean Corpuscular Volume 90.4 fL (80.0-98.0); Mean Platelet Volume 9.5 fL (9.4-12.3); Monocytes Absolute Auto 0.5 X10*3/uL (0.1-1.2); Monocytes Percent Auto 7.2 % (2-11); Neutrophils Absolute Auto 4.1 x10*3/uL (2.0-8.3); Platelet Count 253 X10*3/uL (160-400); Red Blood Count 4.47 X10*6/uL (4.20-5.50); Red Cell Distribution Width 12.1 % (11.0-16.0); White Blood Count 7.4 X10*3/uL (4.8-10.8)
[2024-04-13 16:58] LABS: Alanine Aminotransferase 23 U/L (0-31); Alkaline Phosphatase 46 U/L (39-117); Anion Gap 14 (12-20); Aspartate Amino Transferase 22 U/L (5-31); Bilirubin Direct 0.1 mg/dL (0.0-0.5); Bilirubin Total 0.3 mg/dL (0.0-1.0); Blood Urea Nitrogen 20 mg/dL (9-16); Calcium 10.2 mg/dL (8.4-10.2); Carbon Dioxide 23 mmol/L (22-29); Chloride 107 mmol/L (96-108); Creatinine Clr Calc Pharmacy 112.5; Estimated Glomerular Filt Rate > 60; Glucose Random 84 mg/dL (60-115); Magnesium 2.4 mg/dL (1.6-2.6); Potassium 3.7 mmol/L (3.3-5.1); Sodium 140 mmol/L (135-145); Total Protein 7.7 g/dL (6.5-8.0)
[2024-04-13 17:08] LABS: Troponin-I High Sensitivity < 2.7 ng/L (<3.5-17.0)
[2024-04-13 17:13] LABS: TSH reflex Free T4 2.79 uIU/mL (0.32-4.0)
[2024-04-13 17:17] LABS: Influenza A PCR NEGATIVE (Negative); Influenza B PCR NEGATIVE (Negative); Resp Syncy Virus RNA Qual PCR NEGATIVE (Negative); SARS COV2 PCR INHOUSE NEGATIVE (Negative)
[2024-04-13 17:54] VITALS: BP 117/84; PULSE 70; RESP 16; TEMP 37.1; O2SAT 100
[2024-04-13] MEDS: Acetaminophen 325 MG TABLET 650 MG PO (17:57)
--- NOTE | 2024-04-13 19:06 | PC.NURSE ---
this rn assumed care of pt, pt a&ox4, respirations even and unlabored. pt resting in stretcher, no acute distress noted. tech at bedside for lab redraws.
[2024-04-13 19:49] LABS: Troponin-I High Sensitivity < 2.7 ng/L (<3.5-17.0)
[2024-04-13 20:09] VITALS: BP 114/69; PULSE 69; RESP 18; TEMP 36.8; O2SAT 100
[2024-04-13 20:10] VITALS: BP 114/69; PULSE 69; RESP 18; TEMP 36.8; O2SAT 100
== END 2024-04-13 20:11 | disposition home or self-care (01) ==
PROVIDERS: Physician Assistant; Registered Nurse Emergency; Emergency Provider Emergency Medicine; PCP Physician Assistant
DX: R07.89 Other chest pain (principal); Z03.818 Encounter for observation for suspected exposure to other biological agents ruled out; Z79.899 Other long term (current) drug therapy
CPT/HCPCS: 0241U; 36415; 71046; 80048; 80076; 83735; 84443; 84484; 85025; 93005; 99283; 99285

== ENCOUNTER → 2024-04-13 15:19 | Outpatient (BNV) | payer OTHER, SELFPAY | PROVIDERS: Emergency Provider Emergency Medicine; PCP Physician Assistant; Visit Provider Internal Medicine | DX: R94.31 Abnormal electrocardiogram [ECG] [EKG] (principal); R07.9 Chest pain, unspecified | CPT/HCPCS: 93010 ==

== ENCOUNTER → 2024-04-13 15:32 | Outpatient (BNV) | payer OTHER, SELFPAY | PROVIDERS: PCP Physician Assistant; Visit Provider Radiology Vascular & Interventional Radiology | DX: R07.9 Chest pain, unspecified (principal) | CPT/HCPCS: 71046 ==

== ENCOUNTER 2024-04-24 09:58 | Outpatient (AMB) | payer OTHER, SELFPAY ==
--- NOTE | 2024-04-24 10:03 | A.OFFPC_ITS ---
Vital Signs 3 04/24/24 10:05 Height 5 ft 6 in Weight 165 lb 4 oz BMI 26.7 BP 110/76 Blood Pressure Location Lt brachial Position Sitting Pulse 105 H Pulse Source Pulse Oximeter Temp 97.3 F Temp Source Skin Pulse Oximetry (%) 99 Oxygen Delivery Method Room Air Intake Visit Reasons: [facility] ED FU Intake Note: Patient is here to follow-up after a visit the emergency department at [facility] on 04/13/24 Vascular Manager Required: No On Site Manager: Not Required per policy Accompanied by: Self / Same As Patient Allergies Penicillins [PCN] Allergy (Intermediate, Verified 04/24/24 10:41) HIVES Medication List - Last Reconciled 04/24/24 by Tomasz Aguilar PA-C cetirizine (Zyrtec) 10 mg PO DAILY 90 days cyclobenzaprine 10 mg PO BEDTIME 30 days fluticasone propionate 50 mcg/actuation 2 sprays intranasal DAILY gabapentin 800 mg PO Q12H 90 days ibuprofen 800 mg PO TID rizatriptan take 1 tab at onset of headache; if no relief may repeat 1 tab after at least 2 hrs; max = 3 tabs/24 hr PO 10 days zolpidem ER 12.5 mg PO BEDTIME 30 days Tobacco use date assessed: 04/24/24 Dental Screening Dental Screen Date: 04/24/24 Did you have a dental visit in the last 12 months?: Yes Did you have a dental problem in the last 6 months where you did not have access to dental care?: No Was dental information given to patient?: Patient has dentist HPI [facility] ED FU 2 HPI0 Details The patient is a 43-year-old female presenting with concerns of chest pain and dermatological changes. The chest pain episodes began intermittently around two weeks ago and include pressure sensations on the front and back, along with numbness in the left arm. These episodes were severe enough to suggest the possibility of a myocardial infarction. The patient has undergone previous diagnostic testing, including an EKG, x-ray, blood work, and stress test, all of which were normal. There is no notable increase in cardiac enzymes. The pain episodes were not initiated by physical exertion, occurring primarily during sedentary activities, and were accompanied by dizziness and confusion. Alongside these episodes, the patient developed a rash located on the chest, which she associates with a stress-induced lowered immune response. Additionally, she mentions a recent change in skin appearance, notably the development of darker spots and a past concern regarding a possibly changing lesion on the toe that raises suspicion of melanoma. The patient reports a significant period of work-related stress, as well as a history of panic attacks. She describes cessation of gym activities due to concern over her symptoms, frequent exertion up to two weeks prior, and involvement in a physically active lifestyle including walking up to 20,000 steps daily. [facility] Medical History Dermatitis Migraine aura without headache Microscopic hematuria Surgical History History of ectopic History of appendectomy Status post excision of lipoma History of tonsillectomy Family History Father CVD (cardiovascular disease) Diabetes CAD (coronary artery disease) Cancer Mother Diabetes Sister Asthma Sister Emphysema lung Son In good health Daughter In good health Social History Housing: House Alcohol intake: current Alcohol intake frequency: holidays/special occasions only Alcohol type: wine Patient Tobacco Use Status: Never used Tobacco e-Cigarette/Vaping Use: Never Used Second Hand Smoke Exposure: No service: Yes Current occupational status: employed Current occupation: [employer] Cognitive needs: No Hearing needs: No Vision needs: No Female Reproductive History Menstrual Age of Menarche: 11 Questionnaire PHQ-9 Over the last 2 weeks, how often have you been bothered by any of the following problems? 1. Little interest or pleasure in doing things: not at all 2. Feeling down, depressed, or hopeless: not at all 3. Trouble falling or staying asleep, or sleeping too much: not at all 4. Feeling tired or having little energy: not at all 5. Poor appetite or overeating: not at all 6. Feeling bad about yourself - or that you are a failure or have let yourself or your family down: not at all 7. Trouble concentrating on things, such as reading the newspaper or watching television: not at all 8. Moving or speaking so slowly that other people could have noticed. Or the opposite - being so fidgety or restless that you have been moving around a lot more than usual: not at all 9. Thoughts that you would be better off or of hurting yourself in some way: not at all Total score: 0 Depression Screening Interpretation: Negative Depression Screening Done: Yes Source: Developed by Drs. Qamar Oneal, Pastora Johnson, Enrrique Meredith and colleagues, with an educational elin from [employer]. Thrive Questionnaire Date Thrive assessed: 04/24/24 I am a: Patient What is your living situation today?: I have a steady place to live Within the past 12 months, did the food you bought not last and you didn't have the money to get more?: Never true Within the past 12 months, did you worry whether your food would run out before you got money to buy more?: Never true Do you have trouble paying for medicines?: No Do you have trouble getting transportation to medical appointments?: No Do you have trouble paying your heating and electricity bill?: No Do you have trouble taking care of your child, family member or friend?: No Do you have trouble with day-to-day activities such as bathing, preparing meals, shopping, managing finances, etc.?: No Are you currently unemployed and looking for a job?: No Are you interested in more education?: No Please select the resources that you would like help with: None Currently or been in a relationship where the following occur: No concerns reported THRIVE Score: 0 AUDIT C Alcohol Use Questionnaire (AUDIT-C) 1. How often do you have a drink containing alcohol?: Monthly or less 2. How many drinks containing alcohol do you have on a typical day when you are drinking?: 1 or 2 Total Score: 1 CAYDEN-7 AMB Questionnaire CAYDEN-7 Date CAYDEN - 7 assessed: 04/24/24 Feeling nervous, anxious, or on edge: 0 = Not at all Not being able to stop or control worryin = Not at all Worrying too much about different things: 0 = Not at all Trouble relaxin = Not at all Being so restless that it is hard to sit still: 0 = Not at all Becoming easily annoyed or irritable: 0 = Not at all Feeling afraid as if something awful might happen: 0 = Not at all Total CAYDEN-7 score (0-4 normal; 5-9 mild; 10-14 moderate; 15-21 severe): 0 Source: Developed by Drs. Qamar Oneal, Pastora Johnson, Enrrique Meredith and colleagues, with an educational elin from [employer]. Review of Systems Const Denies headache(s) Eyes Denies loss of vision ENT Denies vertigo, Denies dizziness, Denies headache(s) and Denies sore throat Card Reports chest pain, Reports chest pain at rest, Denies leg edema and Denies lightheadedness Resp Denies cough, Denies hemoptysis and Denies wheezing GI Denies abdominal pain, Denies melena, Denies constipation, Denies diarrhea and Denies vomiting Denies urinary frequency, Denies dysuria and Denies urinary urgency Musc Denies arthralgias, Denies joint swelling, Denies numbness and Denies tingling Neuro Denies Abnormal speech present, Denies behavioral changes, Denies vertigo, Denies dizziness, Denies headache(s), Denies loss of vision, Denies memory loss, Denies numbness and Denies tingling Psych Denies anxiety, Denies behavioral changes, Denies depression, Denies memory loss and Denies panic attacks Alan/Lymph Denies easy bleeding and Denies easy bruising Aller/Immun Denies wheezing Physical exam (Primary Care) Vital Signs: Last Vital Signs Temp 97.3 F 04/24/24 10:05 Pulse 105 H 04/24/24 10:05 BP 110/76 04/24/24 10:05 Pulse Ox 99 04/24/24 10:05 Oxygen Delivery Method Room Air 04/24/24 10:05 BMI result Body Mass Index 26.7 Tobacco/Smoking Status: Tobacco use Status Tobacco use date assessed 04/24/24 04/24/24 10:07 Patient Tobacco Use Status Never used Tobacco 04/24/24 10:07 e-Cigarette/Vaping Use Never Used 04/24/24 10:07 PHQ-9: PHQ-9 Score PHQ-9: Total score 0 04/24/24 10:36 Depression Screening Interpretation: Negative Thrive Assessment: Date of Thrive Assessment Date Thrive assessed 04/24/24 04/24/24 10:07 Currently or been in a relationship where the following occur: No concerns reported Const General: healthy appearing, no acute distress, alert and awake Nutritional Appearance: well nourished Orientation/consciousness: oriented to person, oriented to place and oriented to time HENMT Ears: TM's normal bilaterally General nose exam: Normal nasal mucous membranes and turbinates present Eyes Conjunctivae: conjunctivae normal Sclerae: sclerae normal Pupils: Equal, round and reactive pupils present Neck Neck: Yes no lymphadenopathy and Yes no JVD Thyroid: Thyroid normal Carotids: no bruits Resp Effort & Inspection: normal respiratory effort and not tachypneic Auscultation: no crackles, no rales, no rhonchi and no wheezes Cardio Rate: regular rate Rhythm: regular rhythm Heart sounds: no murmurs and normal S1 and S2 GI Palpation (GI): Soft to palpation, nontender, no hepatomegaly and no splenomegaly Auscultation: normal bowel sounds Abdomen image: 2 1. ROUND FLAT HYPERPIGMENTED LESION OVER THE LEFT UPPER CHEST. LESION HAS REGULAR BORDERS Skin General skin exam: no rashes or lesions noted and dry skin Neuro General: oriented to person, oriented to place and oriented to time Cranial nerves: Yes Equal, round and reactive pupils present Speech: No Abnormal speech present Gait exam (Neuro): Normal gait present Motor exam (neuro): no tremor noted Extrem Right upper extremity: full ROM Left upper extremity: full ROM Right lower extremity: full ROM; no edema Left lower extremity: full ROM; no edema Psych Mental Status: mental status grossly normal Speech and movement: Normal speech and movement present Affect: normal affect Attitude: cooperative Thought process: Normal thought process present Coding Level of Care Code Est Pt Level 4 (82954) Diagnoses Other chest pain R07.89 Chest pain type: other chest pain Skin lesion L98.9 MDD (major depressive disorder), recurrent episode, moderate F33.1 Assessment & Plan Assessment & Plan (1) Chest pain: Code(s): R07.9 - Chest pain, unspecified Category: Medical Qualifiers: Chest pain type: other chest pain Qualified Code(s): R07.89 - Other chest pain Plan: Unclear etiology to patient's chest pain. A full workup including EKG, chest x- ray, troponins were normal. She did do a stress test last year in 2023 which was essentially normal. Out of an abundance of caution Will send for echocardiogram to evaluate myocardial or valvular issue. We did discuss the possibility of her symptoms being most likely related to costochondritis secondary to stress and anxiety. She will work on truncal stretches. (2) Skin lesion: Code(s): L98.9 - Disorder of the skin and subcutaneous tissue, unspecified Category: Medical Plan: Patient has a hyper pigmented lesion over her left upper chest that has been has been in over a year she would like evaluated. Will refer to Dermatology. (3) MDD (major depressive disorder), recurrent episode, moderate: Code(s): F33.1 - Major depressive disorder, recurrent, moderate Category: Medical Plan: Patient does suffer with depression anxiety. She is interested in speaking with a psychotherapist. Will refer to counseling to help her manage her stress. She is not interested in starting any new mental health medications Orders: Orders 2 CA echo transthoracic complete 04/24/24 R07.89 - Other chest pain Referrals 2 Dermatology Referral L98.9 - Disorder of the skin and subcutaneous tissue, unspecified Counseling Referral F33.1 - Major depressive disorder, recurrent, moderate Medications: Refilled 2 cetirizine (Zyrtec) 10 mg PO DAILY 90 tabs 3RF allergy symptoms 90 days J30.89 - Other allergic rhinitis
[2024-04-24 10:05] VITALS: BP 110/76; PULSE 105; TEMP 36.3; O2SAT 99; BMI 26.7
== END 2024-04-24 10:59 | disposition home or self-care (01) ==
PROVIDERS: PCP Physician Assistant; Visit Provider Physician Assistant
DX: R07.89 Other chest pain (principal); L98.9 Disorder of the skin and subcutaneous tissue, unspecified; F33.1 Major depressive disorder, recurrent, moderate

== ENCOUNTER → 2024-04-24 09:58 | Outpatient (BNVA) | payer OTHER, SELFPAY | PROVIDERS: PCP Physician Assistant; Visit Provider Physician Assistant | DX: R07.89 Other chest pain (principal); L98.9 Disorder of the skin and subcutaneous tissue, unspecified; F33.1 Major depressive disorder, recurrent, moderate | CPT/HCPCS: 99212 ==

== ENCOUNTER → 2024-05-09 08:03 | Outpatient (REF) | payer OTHER, SELFPAY ==
--- NOTE | 2024-05-09 08:05 | CA_ITS ---
Transthoracic Echocardiogram Patient (Last, First, Middle): Nika Coleman A Gender: Female Date of : 1980 Age: 43 Procedure Date: 05/09/2024 Procedure Type: Transthoracic Echocardiogram Location: OP Height: 167.64 cm Weight: 72.58 kg BSA: 1.82 m2 Heart Rate: bpm BP: 118 / 80 mmHg Rn Transition: TO Referring MD: Tomasz Aguilar PA-C Symptoms: R07.89 - Other chest pain Study Quality: Adequate ECG Rhythm: Sinus Conclusions: - The left ventricular systolic function is normal. The calculated ejection fraction is 59% by biplane method. - No obvious valvular pathology seen on this study. - There is mild dilatation of the ascending aorta measuring 4.10 cm. Findings Left Ventricle Normal left ventricular cavity size. There is normal left ventricular wall thickness. The left ventricular systolic function is normal. The calculated ejection fraction is 59% by biplane method. There is no evidence of regional wall motion abnormalities. Diastolic function is normal for age. Right Ventricle Normal right ventricular cavity size and systolic function. Atria Both atria are normal in size. Aortic Valve There is a normal trileaflet aortic valve. There is no aortic valve stenosis. There is no aortic valve regurgitation. Mitral Valve The mitral valve appears normal. There is trace mitral valve regurgitation. There is no mitral valve stenosis. Pulmonic Valve The pulmonic valve is likely normal. Tricuspid Valve There is trace tricuspid valve regurgitation. There is no evidence of pulmonary hypertension. Great Vessels The aortic arch is normal in size. There is mild dilatation of the ascending aorta measuring 4.10 cm. Venous The inferior vena cava is normal in size and collapses greater than 50% with inspiration. Pericardium/Pleural There is no evidence of pericardial effusion. Prior Study Comparison No prior study available for comparison. Recommendations, Care & Conclusions No obvious valvular pathology seen on this study. Measurements 2D Linear Measurements IVSd: 0.99 0.6-0.9/0.6-1.0 cm LVIDd: 4.49 3.9-5.3/4.2-5.9 cm LVIDd Index: 2.47 2.4-3.2/2.2-3.1 cm/m2 LVIDs: 3.11 2.0-3.6 cm LVPWd: 0.79 0.7-1.1 cm LA Diam: 3.10 2.7-3.8/3.0-4.0 cm LAIDs Index: 1.70 1.5-2.3 cm/m2 LV Mass: 162.21 67-162/88-224 g LV Mass Index: 89.13 43-95/49-115 g/m2 LVOT Diam: 2.10 3.0+(-)1.3 cm 2D Systolic Function EF 4C: 55.30 >55% EF 2C: 64.00 >55% EF BiP: 59.00 >55% Mitral Valve MV Pk E: 0.60 MV PK A: 0.51 MV Decel Time: 177.00 E/A: 1.20 E'Lateral: 11.60 E'Medial: 6.64 E/E' Med: 9.00 E/E' Lat: 5.10 PHT: 52.00 MVA PHT: 4.23 Decel [place]: 3.36 Aortic Valve AoV Pk Parminder: 1.26 AoV Mn Parminder: 0.85 AoV VTI: 0.25 AoV Pk Grad: 6.00 Aov Mn Grad: 3.00 MIKE Cont.VTI: 2.62 LVOT LVOT Pk Parminder: 1.10 LVOT Mn Parminder: 0.71 LVOT VTI: 0.19 LVOT Pk Grad: 5.00 LVOT Mn Grad: 2.00 LVOT Diam: 2.10 LVOT Area: 3.46 Diastolic Function MV Pk E: 0.60 MV Pk A: 0.51 E/A: 1.20 E'Medial: 6.64 E/E' Med: 9.00 E' Laterial: 11.60 E/E' Lat: 5.10 Right Ventricle TAPSE (mm): 18.40 TVS' Parminder: 10.80 Tricuspid Valve TR Pk Parminder: 1.49 TR Pk Grad: 9.00 RA Press: 3.00 RVSP: 12.00 Great Vessels Aorta Sinus of Valsalva: 3.78 2.0-3.5 cm Ao Asc: 4.10 2.1-3.4 cm Ao Arch: 2.90 Updated in Other Vendor System with Status of Final David Green MD electronically signed on 05/09/2024 11:01:26 AM with status of Final
--- OUTSIDE RECORDS SUMMARY | 2024-05-09 08:15 | XMS_ITS | Continuity of Care Document ---
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 It does not include entries that were removed or entered in error. Problem Status Onset Date Problem Type Date of Resolution Comments Source no psychiatric diagnosis or condition on axis I Inactive Condition [facility] Medications Combined list of outpatient medications [...] LUPIN PHARMACEU, 6 ea. BLIST PACK Active [id number] 2023 6 Pharmac y Data Transac tion Service Facilit y AZITHROMYCI N (azithromyc in), 250 MG, TABLET, ORAL, LUPIN PHARMACEU, 6 ea. BLIST PACK Active [id number] 2023 6 Pharmac y Data Transac tion Service Facilit y CYCLOBENZAP RINE HCL (cyclobenza simin HCl), 10 MG, TABLET, ORAL, TEVA [place], 1000 ea. BOTTLE Active [id number] 2023 30 Pharmac y Data Transac tion Service Facilit y CYCLOBENZAP RINE HCL (cyclobenza simin HCl), 10 MG, TABLET, ORAL, TEVA [place], 1000 ea. BOTTLE Active [id number] 2023 30 Pharmac y Data Transac tion Service Facilit y desogestrel -ethinyl estradiol biphasic oral tablet desogest rel-ethi nyl estradio l biphasic oral tablet Start Date: 09/06/20 Status: Ordered Repeat number: 1 Ordered 2021 No Facilit y Access desogestrel -ethinyl estradiol biphasic oral tablet desogest rel-ethi nyl estradio l biphasic oral tablet Start Date: 04/14/20 Status: Ordered Repeat number: 1 Ordered 2021 No Facilit y Access FLUCELVAX QUAD 4947-1438 (flu vaccine quad 5739-1034(6 month and older)cell derived/PF) , 60MCG/.5ML, SYRINGE, INTRAMUSC, [employer] INC., .5 ml SYRINGE Active [id number] 2022 0.5 Pharmac y Data Transac tion Service Facilit y fluticasone 50 mcg/inh nasal spray fluticas one 50 mcg/inh nasal spray Start Date: 09/06/20 Status: Ordered Repeat number: 1 Ordered 2021 No Facilit y Access fluticasone 50 mcg/inh nasal spray fluticas one 50 mcg/inh nasal spray Start Date: 03/27/21 Status: Ordered Repeat number: 1 Ordered 2021 No Facilit y Access fluticasone 50 mcg/inh nasal spray fluticas one 50 mcg/inh nasal spray Start Date: 06/12/20 Status: Ordered Repeat number: 1 Ordered 2021 No Facilit y Access FLUTICASONE PROPIONATE (FLUTICASON E PROPIONATE) , 50MCG, SPRAY SUSP, NASAL, LOU LABS., 16 g AER W/ADAP Active [id number] 2023 48 Pharmac y Data Transac tion Service Facilit y FLUTICASONE PROPIONATE (FLUTICASON E PROPIONATE) , 50MCG, SPRAY SUSP, NASAL, LOU LABS., 16 g AER W/ADAP Active [id number] 2023 48 Pharmac y Data Transac tion Service Facilit y GABAPENTIN (gabapentin ), 800 MG, TABLET, ORAL, EXELAN PHARMACE, 500 ea. BOTTLE Active [id number] 2023 180 Pharmac y Data Transac tion Service Facilit y gabapentin 800 mg oral tablet gabapent in 800 mg oral tablet Start Date: 03/28/21 Status: Ordered Repeat number: 1 Ordered 2021 No Facilit y Access gabapentin 800 mg oral tablet gabapent in 800 mg oral tablet Start Date: 07/31/20 Status: Ordered Repeat number: 1 Ordered 2021 No Facilit y Access gabapentin 800 mg oral tablet gabapent in 800 mg oral tablet Start Date: 12/14/20 Status: Ordered Repeat number: 1 Ordered 2021 No Facilit y Access IBUPROFEN (ibuprofen) , 800 MG, TABLET, ORAL, EXELAN PHARMACE, 500 ea. BOTTLE Active [id number] 2023 90 Pharmac y Data Transac tion Service Facilit y ibuprofen 800 mg oral tablet ibuprofe n 800 mg oral tablet Start Date: 12/15/20 Status: Ordered Repeat number: 1 Ordered 2021 No Facilit y Access ibuprofen 800 mg oral tablet ibuprofe n 800 mg oral tablet Start Date: 02/15/21 Status: Ordered Repeat number: 1 Ordered 2021 No Facilit y Access ibuprofen 800 mg oral tablet ibuprofe n 800 mg oral tablet Start Date: 06/12/20 Status: Ordered Repeat number: 1 Ordered 2021 No Facilit y Access ibuprofen 800 mg oral tablet ibuprofe n 800 mg oral tablet Start Date: 09/04/20 Status: Ordered Repeat number: 1 Ordered 2021 No Facilit y Access PREDNISONE (prednisone ), 10 MG, TABLET, ORAL, MYLAN, 1000 ea. BOTTLE Active [id number] 2023 28 Pharmac y Data Transac tion Service Facilit y PREDNISONE (prednisone ), 10 MG, TABLET, ORAL, MYLAN, 1000 ea. BOTTLE Cancele d [id number] : 2023 0 Pharmac y Data Transac tion Service Facilit y PREDNISONE (prednisone ), 10 MG, TABLET, ORAL, MYLAN, 1000 ea. BOTTLE Active [id number] 2023 28 Pharmac y Data Transac tion Service Facilit y predniSONE 10 mg oral tablet predniSO NE 10 mg oral tablet Start Date: 03/28/20 Status: Ordered Repeat number: 1 Ordered 2021 No Facilit y Access rizatriptan 10 mg oral tablet rizatrip campos 10 mg oral tablet Start Date: 12/14/20 Status: Ordered Repeat number: 1 Ordered 2021 No Facilit y Access TOPIRAMATE (topiramate ), 25 MG, TABLET, ORAL, EXELAN PHARMACE, 1000 ea. BOTTLE Active [id number] 2023 360 Pharmac y Data Transac tion Service Facilit y topiramate 25 mg oral tablet topirama te 25 mg oral tablet Start Date: 12/15/20 Status: Ordered Repeat number: 1 Ordered 2021 No Facilit y Access traMADol 50 mg oral tablet traMADol 50 mg oral tablet Start Date: 09/20/20 Status: Ordered Repeat number: 1 Ordered 2021 No Facilit y Access TRANEXAMIC ACID (tranexamic acid), 650 MG, TABLET, ORAL, ANI PHARMACEUTI , 30 ea. BOTTLE Active [id number] 2023 30 Pharmac y Data Transac tion Service Facilit y zolpidem 12.5 mg oral tablet, extended release zolpidem 12.5 mg oral tablet, extended release Start Date: 04/02/21 Status: Ordered Repeat number: 1 Ordered 2021 No Facilit y Access zolpidem 12.5 mg oral tablet, extended release zolpidem 12.5 mg oral tablet, extended release Start Date: 10/21/20 Status: Ordered Repeat number: 1 Ordered 2021 No Facilit y Access zolpidem 12.5 mg oral tablet, extended release zolpidem 12.5 mg oral tablet, extended release Start Date: 01/10/21 Status: Ordered Repeat number: 1 Ordered 2021 No Facilit y Access zolpidem 12.5 mg oral tablet, extended release zolpidem 12.5 mg oral tablet, extended release Start Date: 09/02/20 Status: Ordered Repeat number: 1 Ordered 2021 No Facilit y Access zolpidem 12.5 mg oral tablet, extended release zolpidem 12.5 mg oral tablet, extended release Start Date: 05/06/20 Status: Ordered Repeat number: 1 Ordered 2021 No Facilit y Access zolpidem 12.5 mg oral tablet, extended release zolpidem 12.5 mg oral tablet, extended release Start Date: 08/09/20 Status: Ordered Repeat number: 1 Ordered 2021 No Facilit y Access ZOLPIDEM TARTRATE ER (ZOLPIDEM TARTRATE), 12.5 MG, TAB MPHASE, ORAL, LUPIN PHARMACEU, 100 ea. BOTTLE Cancele d [id number] : 2023 0 Pharmac y Data Transac tion Service Facilit y ZOLPIDEM TARTRATE ER (ZOLPIDEM TARTRATE), 12.5 MG, TAB MPHASE, ORAL, LUPIN PHARMACEU, 100 ea. BOTTLE Active [id number] 2022 90 Pharmac y Data Transac tion Service Facilit y ZOLPIDEM TARTRATE ER (ZOLPIDEM TARTRATE), 12.5 MG, TAB MPHASE, ORAL, LUPIN PHARMACEU, 100 ea. BOTTLE Active [id number] 2023 90 Pharmac y Data Transac tion Service Facilit y Immunizations Combined list of available immunizations from the Department of Defense and Veterans Affairs facilities. 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 Status Comments Source tetanus, diphtheria, acellular pertu is 2021 [id number] sanofi pasteur complet ed tetanus, diphtheri a, acellular pertussis 05/20/21 Given Ambulat ory Pharmac y tetanus toxoid, reduced diphtheria toxoid, and acellular pertu is vaccine, adsorbed 1 2021 [id number] 115 Sanofi Pasteur ([facility]) complet ed tetanus toxoid, reduced diphtheri a toxoid, and acellular pertussis vaccine, adsorbed DoD influenza, injectable, quadrivalent 2020 [id number] 158 GlaxoSmithKli ne complet ed influenza , injectabl e, quadrival ent 12/26/20 Given Ambulat ory Pharmac y influenza, injectable, quadrivalent, contains preservative 11 2020 [id number] 158 [facility] ([facility]) complet ed influenza , injectabl e, quadrival ent, contains preservat ronn DoD COVID Vaccine Pfizer 2020 Paramjit weathers Arm [id number] 208 PFIZER complet ed COVID Vaccine Pfizer 12/11/20 Given Ambulat ory Pharmac y SARS-COV-2 (COVID-19) vaccine, mRNA, spike protein, LNP, preservative free, 30 mcg/0.3mL dose 2 2020 DEBBIE CROWDER [id number] 208 Pfizer, Inc (PFR) complet ed SARS-COV- 2 (COVID-19 ) vaccine, mRNA, spike protein, LNP, preservat ronn free, 30 mcg/0.3mL dose DoD COVID Vaccine Pfizer 2020 Paramjit weathers Arm [id number] 208 PFIZER complet ed COVID Vaccine Pfizer 11/20/20 Given Ambulat ory Pharmac y SARS-COV-2 (COVID-19) vaccine, mRNA, spike protein, LNP, preservative free, 30 mcg/0.3mL dose 1 2020 MULUGETA PRESLEY [id number] 208 Pfizer, Inc (PFR) complet ed SARS-COV- 2 (COVID-19 [...] contains preservat ronn DoD Influenza, injectable, Madin Julianne Canine Kidney, preservative free, quadrivalent 0 2019 171 (MVX) complet ed Influenza , injectabl e, [facility] Canine Kidney, preservat ronn free, quadrival ent DoD Influenza, injectable, MDCK, preservative free, quadrivalent 2019 SHELDON, () Not Given Influenza , injectabl e, MDCK, preservat ronn free, quadrival ent DoD influenza, injectable, quadrivalent- pf 2018 [id number] 150 Seqirus complet ed influenza , injectabl e, quadrival ent-pf 01/10/19 Given Ambulat ory Pharmac y Influenza, injectable, quadrivalent, preservative free 20 2018 [id number] 150 Seqirus (SEQ) complet ed Influenza , injectabl e, quadrival ent, preservat ronn free DoD influenza, seasonal, injectable 2017 [id number] 141 sanofi pasteur complet ed influenza , seasonal, injectabl e 12/20/17 Given Ambulat ory Pharmac y Influenza, seasonal, injectable 1 2017 [id number] 141 Sanofi Pasteur ([facility]) complet ed Influenza , seasonal, injectabl e [...] ronn free DoD influenza, seasonal, injectable 2015 [id number] 141 CSL Behring complet ed influenza , seasonal, injectabl e 12/30/15 Given Ambulat ory Pharmac y Influenza, seasonal, injectable 1 2015 [id number] 141 CSL [employer]otherap[employer] Inc. ([facility]) complet ed Influenza , seasonal, injectabl e DoD influenza, seasonal, injectable-pf 2014 TRANSCR [id number] 140 CS Behring complet ed influenza , seasonal, injectabl e-pf 01/02/15 Given Ambulat ory Pharmac y Influenza, seasonal, injectable, preservative free 1 2014 140 CS [employer]otherapies[employer] Inc. ([facility]) complet ed Influenza , seasonal, injectabl e, [...] injectabl e DoD influenza, seasonal, injectable-pf 2012 [id number] 140 Novartis Pharmaceutica complet ed influenza , seasonal, injectabl e-pf 12/10/12 Given Ambulat ory Pharmac y Influenza, seasonal, injectable, preservative free 15 2012 [id number] 140 Novartis Pharmaceutica l Gareth. (NOV) complet ed Influenza , seasonal, injectabl e, preservat ronn free DoD influenza, seasonal, injectable-pf 2011 [id number] 140 CSL Behring complet ed influenza , seasonal, injectabl e-pf 11/26/11 Given Ambulat ory Pharmac y Influenza, seasonal, injectable, preservative free 14 2011 [id number] 140 CS [employer]otherapies[employer] Inc. ([facility]) complet ed Influenza , seasonal, injectabl e, preservat ronn free DoD tetanus, diphtheria, acellular pertu is 2010 [id number] 115 sanofi pasteur complet ed tetanus, diphtheri a, acellular pertussis 02/10/11 Given Ambulat ory Pharmac y tetanus toxoid, reduced diphtheria toxoid, and acellular pertu is vaccine, adsorbed 0 2010 [id number] 115 Sanofi Pasteur ([facility]) complet ed tetanus toxoid, reduced diphtheri a toxoid, and acellular pertussis vaccine, adsorbed DoD influenza, seasonal, injectable-pf 2010 [id number] 140 CSL Behring complet ed influenza , seasonal, injectabl e-pf 12/13/10 Given Ambulat ory Pharmac y Influenza, seasonal, injectable, preservative free 0 2010 [id number] 140 CS Biotherapies, Inc. (CS) complet ed Influenza , seasonal, injectabl e, preservat ronn free DoD influenza virus vaccine,split 2009 [id number] 15 sanofi pasteur complet ed influenza virus vaccine,s plit 02/13/10 Given Ambulat ory Pharmac y influenza virus vaccine, split virus (incl. purified surface antigen)-reti red CODE 1 2009 [id number] 15 Sanofi Pasteur ([facility]) complet ed influenza virus vaccine, split virus (incl. purified surface antigen)- retired CODE DoD Novel influenza-H1N 1-09, injectable 2009 [id number] 1 127 Novartis Pharmaceutica complet ed Novel influenza -X0S7-79, injectabl e 07/08/09 Given Ambulat ory Pharmac y Novel influenza-H1N 1-09, injectable 2009 [id number] 1 127 Novartis [employer] Gareth. (NOV) complet ed Novel influenza -R8L5-79, injectabl e DoD influenza virus vaccine,split 2009 15 complet ed influenza virus vaccine,s plit 04/14/09 Given Ambulat ory Pharmac y influenza virus vaccine, split virus (incl. purified surface antigen)-reti red CODE 2 2009 15 Transcribed (TRS) complet ed influenza virus vaccine, split virus (incl. purified surface antigen)- retired CODE DoD influenza virus vaccine, live 2007 [id number] 111 ACS [employer] comple t ed influenza virus vaccine, live 11/25/07 Given Ambulat ory Pharmac y influenza virus vaccine, live, attenuated, for intranasal use 1 2007 [id number] 111 [employer]. (MED) complet ed influenza virus vaccine, live, attenuate d, for intranasa l use DoD typhoid Vi capsular polysaccharid e vac 2007 [id number] 101 sanofi pasteur complet ed typhoid Vi capsular polysacch aride vac 11/03/07 Given Ambulat ory Pharmac y typhoid Vi capsular polysaccharid e vaccine 1 2007 [id number] 101 Sanofi Pasteur ([facility]) complet ed typhoid Vi capsular polysacch aride vaccine DoD influenza virus vaccine,split 2006 15 complet ed influenza virus vaccine,s plit 01/21/07 Given Ambulat ory Pharmac y influenza virus vaccine, split virus (incl. purified surface antigen)-reti red CODE 1 2006 15 Transcribed (TRS) complet ed influenza virus vaccine, split virus (incl. purified surface antigen)- retired CODE DoD influenza virus vaccine,split 2005 [id number] 15 sanofi pasteur complet ed influenza virus vaccine,s plit 01/01/06 Given Ambulat ory Pharmac y influenza virus vaccine, split virus (incl. purified surface antigen)-reti red CODE 1 2005 [id number] 15 Sanofi Pasteur ([facility]) complet ed influenza virus vaccine, split virus (incl. purified surface antigen)- retired CODE [facility] influenza virus vaccine, whole virus 2004 [id number] 16 sanofi pasteur complet ed influenza virus vaccine, whole virus 01/14/05 Given Ambulat ory Pharmac y influenza virus vaccine,split 2004 [id number] 15 sanofi pasteur complet ed influenza virus vaccine,s plit 01/14/05 Given Ambulat ory Pharmac y influenza virus vaccine, split virus (incl. purified surface antigen)-reti red CODE 1 2004 [id number] 15 Sanofi Pasteur ([facility]) complet ed influenza virus vaccine, split virus (incl. purified surface antigen)- retired CODE DoD influenza virus vaccine, whole virus 1 2004 [id number] 16 Sanofi Pasteur ([facility]) complet ed influenza virus vaccine, whole virus DoD influenza virus vaccine, whole virus 2003 [id number] 16 Novartis Pharmaceutica ls complet ed influenza virus vaccine, whole virus 11/22/03 Given Ambulat ory Pharmac y anthrax vaccine 2003 [id number] 24 Emergent [employer] complet ed anthrax vaccine 11/22/03 Given Ambulat ory Pharmac y influenza virus vaccine, whole virus 0 2003 [id number] 16 Powder[employer] Pharmaceut[employer] ls (PWJ) complet ed influenza virus vaccine, whole virus DoD anthrax vaccine 5 2003 [id number] 24 [facility] [employer] ([facility]) complet ed anthrax vaccine DoD typhoid vaccine, parenteral 2003 [id number] 41 sanofi pasteur complet ed typhoid vaccine, parentera l 07/12/03 Given Ambulat ory Pharmac y typhoid vaccine, parenteral, other than acetone-kille d, dried 0 2003 [id number] 41 Sanofi Pasteur ([facility]) complet ed typhoid vaccine, parentera l, other than acetone-k illed, dried DoD anthrax vaccine 2003 [id number] 24 [employer] complet ed anthrax vaccine 04/19/03 Given Ambulat ory Pharmac y anthrax vaccine 4 2003 [id number] 24 [employer] ([facility]) complet ed anthrax vaccine DoD influenza virus [...] Ambulat ory Pharmac y vaccinia (smallpox) vaccine [id number] [facility] complet ed vaccinia (smallpox ) vaccine 04/24/02 Given Ambulat ory Pharmac y vaccinia (smallpox) vaccine 0 [id number] 75 [facility] ([facility]) complet ed vaccinia (smallpox ) vaccine DoD anthrax vaccine 2001 [id number] 24 [employer] complet ed anthrax vaccine 03/03/02 Given Ambulat ory Pharmac y anthrax vaccine 2 2001 [id number] 24 [facility] complet ed anthrax vaccine DoD anthrax vaccine 2001 [id number] 24 [employer] complet ed anthrax vaccine 02/16/02 Given Ambulat ory Pharmac y anthrax vaccine 1 2001 [id number] 24 [facility]) complet ed anthrax vaccine DoD hepatitis B adult vaccine 2001 [id number] 43 Merck & Company Inc complet ed hepatitis B adult vaccine 01/09/02 Given Ambulat ory Pharmac y influenza virus vaccine, whole virus 2001 [id number] 16 Unknown complet ed influenza virus vaccine, whole virus 01/09/02 Given Ambulat ory Pharmac y influenza virus vaccine, whole virus 0 2001 [id number] 16 Unknown (UNK) comple t ed influenza virus vaccine, whole virus DoD hepatitis B vaccine, adult dosage 3 2001 [id number] 43 Merck (MSD) complet ed hepatitis B vaccine, adult dosage DoD hepatitis B adult vaccine 2001 [id number] 43 Merck & Company Inc complet ed hepatitis B adult vaccine 05/30/01 Given Ambulat ory Pharmac y typhoid vaccine, parenteral 2001 [id number] 41 sanofi pasteur complet ed typhoid vaccine, parentera l 05/30/01 Given Ambulat ory Pharmac y typhoid vaccine, parenteral, other than acetone-kille d, dried 0 2001 [id number] 41 Sanofi Pasteur ([facility]) complet ed typhoid vaccine, parentera l, other than acetone-k illed, dried DoD hepatitis B vaccine, adult dosage 2 2001 [id number] 43 Merck (MSD) complet ed hepatitis B vaccine, adult dosage DoD tuberculin purified protein derivative 2001 2519-11 [id number] complet ed tuberculi n purified protein derivativ e 05/19/01 Given Ambulat ory Pharmac y hepatitis B adult vaccine 2001 [id number] 43 Merck & Company Inc complet ed hepatitis B adult vaccine 04/22/01 Given Ambulat ory Pharmac y yellow fever vaccine 2001 [id number] 37 sanofi pasteur complet ed yellow fever vaccine 04/22/01 Given Ambulat ory Pharmac y yellow fever vaccine 0 2001 [id number] 37 Sanofi Pasteur ([facility]) complet ed yellow fever vaccine DoD hepatitis [...] vaccine DoD tuberculin purified protein derivative 2000 [id number] 96 [facility] complet ed tuberculi n purified protein derivativ e 05/05/00 Given Ambulat ory Pharmac y hepatitis A adult vaccine 2000 [id number] 52 Merck & Company Inc complet ed hepatitis A adult vaccine 05/05/00 Given Ambulat ory Pharmac y meningococcal polysaccharid e (MPSV4) 2000 [id number] 32 [employer] [facility] complet ed meningoco ccal polysacch aride (MPSV4) 05/05/00 Given Ambulat ory Pharmac y influenza virus vaccine, whole virus 2000 [id number] 16 [employer] complet ed influenza virus vaccine, whole virus 05/05/00 Given Ambulat ory Pharmac y poliovirus vaccine, inactivated 2000 [id number] 10 sanofi pasteur complet ed polioviru s vaccine, inactivat ed 05/05/00 Given Ambulat ory Pharmac y poliovirus vaccine, inactivated 0 2000 [id number] 10 Sanofi Pasteur ([facility]) complet ed polioviru s vaccine, inactivat ed DoD influenza virus vaccine, whole virus 0 2000 [id number] 16 [facility] ([facility]) complet ed influenza virus vaccine, whole virus DoD meningococcal polysaccharid e vaccine (MPSV4) 0 2000 [id number] 32 [facility] ([facility] complet ed meningoco ccal polysacch aride [...] Reference Range Date Interpretation Specimen Comments Source Infectiou s Disease HIV-1/O/2 Non-Reac tive 1 (05/25/23 12:14 [...] Prevention' s HIV diagnostic algorithm. Refer to [facility] Lab Guide for additional information : [email or web address]/ [email or web address] x Testing performed by Zaira kulkarni [address] [employer] EPILAB Miscellan eous Sendouts Repository Sample Received (05/25/23 12:14 PM) 05/24 N [address] [email or web address] EPILAB Encounters Combined list of: 1) Encounters from Department of Veterans Affairs facilities going backup to the last 18 months, not all [place] inpatient encounters are included; 2) Encounters from the Department of Defense facilities going backup to 280 months. Location Location Details Encounter Type Encounter Number Reason For Visit Attending Provider ADM Date DC Date [place] [address](AFN G 104 Med Sq-FM) OUTPATIENT [id number] Notes Entered by: NICO GARCIA 16 Sep 2016 0835 ------- ------- ------- ------- -- [employer] PHAQ TIFFANIE GARCIA 09/16 Released w/o Limitations [facility] [place] [address](A FNG 104 Med Sq-FM) [place] [address](AFN G 104 Med Sq-FM) OUTPATIENT [id number] Notes Entered by: VON MCQUEEN 17 Mar 2017 1202 ------- ------- ------- ------- -- EVENS Eaton 03/17 Released w/o Limitations [facility] [place] [address](A FNG 104 Med Sq-FM) [place] [address](AFN G 104 Med Sq-FM) OUTPATIENT [id number] Notes Entered by: KENZIE HUGO 15 Nov 2017 1511 ------- ------- ------- ------- -- KENZIE ROACH 11/15 Released w/o Limitations [facility] [place] [address](A FNG 104 Med Sq-FM) [place] [address](AFN G 104 Med Sq-FM) OUTPATIENT [id number] Notes Entered by: REJI GIRALDO 11 May 2018 1022 ------- ------- ------- ------- -- EVENS RAMSAY 05/11 Released w/o Limitations [facility] [place] [address](A FNG 104 Med Sq-FM) [place] [address](AFN G 104 Med Sq-FM) OUTPATIENT [id number] Notes Entered by: CRUZ SPARKS 11 May 2018 1148 ------- ------- ------- ------- -- DEL BOWIE 05/11 Released w/o Limitations [facility] [place] [address](A FNG 104 Med Sq-FM) [place] [address](AFN G 104 Med Sq-FM) OUTPATIENT [id number] Notes Entered by: CRUZ SPARKS 24 Mar 2019 1522 ------- ------- ------- ------- -- DEL BOWIE 03/24 Released w/o Limitations [facility] [place] [address](A FNG 104 Med Sq-FM) [place] [address](AFN G 104 Med Sq-FM) OUTPATIENT [id number] Notes Entered by: MAGGIE DE OLIVEIRA 24 Jun 2020 0937 ------- ------- ------- ------- -- Annual Audiogr am KENZIE HUGO 06/24 [facility] w[facility] Limitations [facility] [place] [place] [address](A FNG 104 Med Sq-FM) [facility] [place] OUTPATIENT [id number] DEL LERMA 11/20 Released w/o Limitations [facility] [place] M01D [place]) TELE CONSULT [id number] Notes Entered by: GILBERT SALVADOR 09 Dec 2020 1334 ------- ------- ------- ------- -- COVID Vaccina tion Locatio n Change GILBERT SALVADOR 12/09 Released to Self Care [facility] M[facility] [place]) [facility] [place] OUTPATIENT [id number] PFIZER# 2 MAU SPENCER 12/11 Released w/o Limitations [facility] [place]) [place] [address](AFN G 104 Med Sq-FM) OUTPATIENT [id number] Notes Entered by: MARCEL LINK 20 May 2021 1003 ------- ------- ------- ------- -- Audiogr am/TIFFANIE GALLEGOS 05/20 [facility] Limitations [facility] [place] [address](A FNG 104 Med Sq-FM) [place] [address](AFN G 104 Med Sq-FM) OUTPATIENT [id number] Notes Entered by: MAGGIE DE OLIVEIRA DEBRA 04 Jun 2021 1221 ------- ------- ------- ------- -- Follow- Up Audiogr am KENZIE HUGO 06/04 [facility] Limitations [facility] [place] [address](A FNG 104 Med Sq-FM) [place] [address](AFN G 104 Med Sq-FM) TELE CONSULT [id number] 4 KENZIE HUGO [birth year] [facility] [place] [address](A FNG 104 Med Sq-FM) 8203R-104 MDG Care Not Rendered [id number] 05/24 Discharge Disposition: Home or Self Care 8203R-1 04 MDG 8203R-104 MDG Outpatient [id number] ROGELIO CARDONA 05/29 Discharge Disposition: Home or Self Care 8203R-1 04 MDG 8203R-104 MDG Care Not Rendered [id number] 06/13 Discharge Disposition: Home or Self Care 8203R-1 04 MDG 8203R-104 MDG Between Visit [id number] 01/14 Discharge Disposition: Home or Self Care 8203R-1 04 MDG 8203R-104 MDG Between Visit [id number] 02/05 Discharge Disposition: Home or Self Care 8203R-1 04 MDG Procedures Combined list of: 1) Procedures from [...] EG, MMPI), ADMINISTERED COMPUTER, W QUALIFIED HEALTH CLERICAL SECRETARY INTERPRET &RPT 007 [facility] SELF-CARE/HOME MANAGMENT TRAIN (EG,ACT OF DAILY LIVING (ADL) &COMPENSAT TRAIN,MEAL PREPARATION,SAFETY PROCS,AND INSTRUCT IN USE OF ASST TECHNOLOGY DEV/ADPT EQUIP) DIR ONE-ON-ONE CONT,EA 15 MINUTES [facility] APPLICATION OF A MODALITY TO 1 OR MORE AREAS; HOT OR COLD PACKS [facility] THERAPEUTIC PROCEDURE, 1 OR MORE AREAS, EACH 15 MINUTES; GAIT TRAINING (INCLUDES STAIR CLIMBING) [facility] OPHTHALMOLOGICAL SERVICES: MEDICAL EXAMINATION AND EVALUATION, WITH INITIATION OR CONTINUATION OF DIAGNOSTIC AND TREATMENT PROGRAM; COMPREHENSIVE, ESTABLISHED PATIENT, 1 OR MORE VISITS [facility] IMMUNIZATION ADM,INTRAMUSCULAR INJ,SEVERE AC RESPIRATORY SYNDROME CORONAVIR 2 (SARSCOV-2) (CORONAVIR DIS [COVID-19]) VACC,MRNALNP,SPIKE PROT,PRESRV FREE,30 MCG/0.3ML DOS,DILUENT RECONSTITUT;2ND DOSE [facility] IMMUNIZATION ADM,INTRAMUSCULAR INJ,SEVERE AC RESPIRATORY SYNDROME CORONAVIR 2 (SARSCOV-2) (CORONAVIR DIS [COVID-19]) VACC,MRNALNP,SPIKE PROT,PRESRV FREE,30 MCG/0.3ML DOS,DILUENT RECONSTITUT;1ST DOSE [facility] Psychiatric Diagnostic Evaluation Comprehensive Examination Psychiatric Diagnostic Evaluation Comprehensive Examination 12517 007 LUKE TORRES [facility] Vaccine SARS-CoV-2 mRNA-LNP Mohamud Protein Preservative Free 30mcg/0.3mL Diluent Reconstituted IM Vaccine SARS-CoV-2 mRNA-LNP Mohamud Protein Preservative Free 30mcg/0[place] [id number] MULUGETA PRESLEY COVID-19 RIGID; Series #: 1; 0.3 mL; IM; Left Arm; Mfg: RIGID, [employer]; Lot: [id number]. [facility] Vacc SARS-CoV-2 mRNA-LNP Mohamud Protein Preservative Free 30mcg/0.3mL Diluent Reconstituted IM First Dose Vacc SARS-CoV-2 mRNA-LNP Mohamud Protein Preservative Free 30mcg/0.3mL Diluent Reconstituted IM First Dose 0001A MULUGETA PRESLEY [facility] Vaccine SARS-CoV-2 mRNA-LNP Mohamud Protein Preservative Free 30mcg/0.3mL Diluent Reconstituted IM Vaccine SARS-CoV-2 mRNA-LNP Mohamud Protein Preservative Free 30mcg/0[place] [address] DEBBIE CROWDER COVID-19 Pfizer (COMIRNATY) ; Series #: 2; 0.3 mL; IM; Left Arm; Mfg: RIGID, Inc; Lot: [id number]. [facility] Vacc SARS-CoV-2 mRNA-LNP Mohamud Protein Preservative Free 30mcg/0.3mL Diluent Reconstituted IM Second Dose Vacc SARS-CoV-2 mRNA-LNP Mohamud Protein Preservative Free 30mcg/0.3mL Diluent Reconstituted IM Second Dose 0002A DEBBIE CROWDER [facility] Social History Combined list of available smoking, tobacco, and other social history from [facility] facilities. Social History Type Response Date Comment Sour e Sex Representation Female 06/17/2021 Unknow n Organization Sexual Orientation [facility] Gender identity [facility] This section is an empty soc ial history section. 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 Hearing loss is not significant enough to [...] has been for the last 6 years. 05/09/2024 8203R-104 MDG Functional Status Combined list of recent functional and cognitive assessments recorded at [facility] Functional Braddock Measurement (FIM) Scale: 1 = Total Assistance (Subject = 0% +), 2 = Maximal Assistance (Subject = 25% +), 3 = Moderate Assistance (Subject = 50% +), 4 = Minimal Assistance (Subject = 75% +), 5 = Supervision, 6 = Modified Braddock (Device), 7 = Complete Braddock (Timely, Safely). Assessment Date/Time Source Assessment Type Assessment Skill Assessment Score Assessment Details No data available for this section
== END ==
LOC: HO.CARD 08:03
PROVIDERS: Visit Provider Physician Assistant
DX: R07.89 Other chest pain (principal)
CPT/HCPCS: 93306

== ENCOUNTER → 2024-05-09 08:05 | Outpatient (BNV) | payer OTHER, SELFPAY | PROVIDERS: Visit Provider Internal Medicine | DX: I71.21 Aneurysm of the ascending aorta, without rupture (principal) | CPT/HCPCS: 93306 ==

== ENCOUNTER 2024-08-14 08:41 | Outpatient (AMB) | payer OTHER, SELFPAY ==
--- NOTE | 2024-08-14 08:48 | A.OFFVIS_ITS ---
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 She is a 43-year-old [employer] for last 25 years and is in good shape and exer cise regularly. She says she has high level of aerobic capacity. Last year she underwent stress test for unclear reason, she had no symptoms at point in time which at high workload was negative for ischemia. Since March this year she has been having almost constant chest tightness. She says the symptoms have waxing and waning but she has minor chest discomfort all the time. She says this is related to increased work related stress and she feels this chest tightness almost constantly but then it did increase his under certain situations with stress. She said the symptoms actually get better when she runs and after the run the symptoms have much milder. She denies any prolonged palpitation irregular heartbeat. She is worried about underlying coronary artery disease given her father's history of having heart attack at age 40. She does have mild hyperlipidemia. She has no history of hypertension, diabetes. No family history of ascending aortic aneurysm or aortic dissection or sudden cardiac at a young age. [facility] Medical History Dermatitis Migraine aura without headache Microscopic hematuria Surgical History History of ectopic History of appendectomy Status post excision of lipoma History of tonsillectomy Family History Father CVD (cardiovascular disease) Diabetes CAD (coronary artery disease) Cancer Mother Diabetes Sister Asthma Sister Emphysema lung Son In good health Daughter In good health Social History Housing: House Alcohol intake: current Alcohol intake frequency: holidays/special occasions only Alcohol type: wine Patient Tobacco Use Status: Never used Tobacco e-Cigarette/Vaping Use: Never Used Second Hand Smoke Exposure: No service: Yes Current occupational status: employed Current occupation: - [employer] Cognitive needs: No Hearing needs: No Vision needs: No Female Reproductive History Menstrual Age of Menarche: 11 Review of Systems Const Denies weakness ENT Denies dizziness Card Denies chest pain, Reports chest pain with activity, Denies syncope, Denies rapid heart rate, Denies pedal edema, Denies edema, Denies leg edema, Denies lightheadedness, Reports palpitations, Denies dyspnea, Reports dyspnea on exertion and Denies orthopnea Resp Denies cough, Denies dyspnea and Reports dyspnea on exertion GI Denies hematochezia and Denies change in stool character Musc Denies abnormal gait, Denies muscle cramps, Denies muscle weakness, Denies numbness, Denies radiating pain into limb and Denies tingling Neuro Denies abnormal gait, Denies dizziness, Denies syncope, Denies numbness, Denies tingling and Denies weakness Endo Reports palpitations Physical Exam Vital Signs: Last Vital Signs Pulse 84 08/14/24 08:49 BP 124/80 08/14/24 08:49 BMI result Body Mass Index 27.4 Const General: cooperative, comfortable, no acute distress, well developed, alert, awake and well groomed Nutritional Appearance: average body habitus and well nourished Orientation/consciousness: patient oriented x3 Limitations: no limitations HEENT Head: Yes normocephalic and Yes atraumatic Neck Neck: Yes trachea midline, Yes supple and Yes no JVD Resp Effort & Inspection: normal respiratory effort Auscultation: clear to auscultation bilaterally Cardio Jugular venous distension: no JVD Palpation: normal PMI Rate: regular rate Rhythm: regular rhythm Heart sounds: S1 normal heart sound present, S2 normal heart sound present, no click, no gallops, no murmurs and no rubs GI Auscultation: normal bowel sounds Skin General skin exam: no rashes or lesions noted Neuro General: patient oriented x3 and no focal motor deficits Extrem General: Yes no clubbing, cyanosis or edema Psych Appearance: grossly normal Affect: Anxious affect present Office Procedures EKG Details: EKG shows normal sinus rhythm with no acute changes with septal QS pattern probably due to lead placement, unchanged from April EKG. [id number], Complete Assessment & Plan Assessment & Plan (1) Mild ascending aorta dilatation: Code(s): I77.810 - Thoracic aortic ectasia Category: Medical Plan: Mild ascending aortic dilatation which is unusual at her age. Unlikely to be atherosclerotic in nature. Genetic etiology needs to be ruled out. Will refer for genetic evaluation for known genetic causes for ascending aortic dilatation. If present this would change her target repair size to 5 cm. Otherwise we discussed about management of ascending aortic enlargement. Discussed that this is not the cause of her constant chest pain. I would start her on metoprolol therapy at 25 mg daily to reduce heart rate in the 60s with rest and advised to avoid sudden strenuous isometric exercise. She understands management. We discussed about following up limited echocardiogram in 2 months time to assess ascending aortic size to see if there has sudden change in her anatomy. Symptoms associated with the acute aortic syndromes were discussed. She understands them well. Can also consider statin therapy especially after coronary calcium score see below. (2) Atypical chest pain: Code(s): R07.89 - Other chest pain Category: Medical Plan: Patient was almost constant chest pain. This is unlikely to be related to myocardial ischemia. However she is very concerned about it given her family history for premature coronary artery disease and her hyperlipidemia. I would suggest a ETT to assess for myocardial ischemia as her chest pain syndrome started more recently than her prior stress test. We discussed about pathophysiology of ischemia related chest pain. She understands. She would like to know further about coronary atherosclerosis and I think she would benefit from coronary calcium score to further assess for the same. She is agreeable to pursue that. If she does have presence of coronary atherosclerosis will benefit from statin therapy. (3) Preoperative cardiovascular examination: Code(s): Z01.810 - Encounter for preprocedural cardiovascular examination Plan: Preoperative cardiovascular risk stratification in this young woman to undergo basal cell carcinoma surgery which is a low risk surgery. She is optimized to undergo the surgery with low risk for perioperative cardiovascular morbidity mortality. Follow up in the clinic in 3 months time after limited echocardiogram. Thank you for allowing me to partake in her care Coding Level of Care Code New Pt Level 4 (66112) Complex EM visit Add On G2211 Diagnoses Mild ascending aorta dilatation I77.810 Atypical chest pain R07.89 Preoperative cardiovascular examination Z01.810 CPT Codes EKG - CPT: 04775-[id number], Complete ([id number])
[2024-08-14 08:49] VITALS: BP 124/80; PULSE 84; BMI 27.4
--- OUTSIDE RECORDS SUMMARY | 2024-08-14 08:59 | XMS_ITS | Continuity of Care Document ---
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 It does not include entries that were removed or entered in error. Problem Status Onset Date Problem Type Date of Resolution Comments Source NO PSYCHIATRIC DIAGNOSIS OR CONDITION ON AXIS I Inactive Condition [facility] Medications Combined list of outpatient medications [...] LUPIN PHARMACEU, 6 ea. BLIST PACK Active [id number] 2023 6 Pharmac y Data Transac tion Service Facilit y AZITHROMYCI N (azithromyc in), 250 MG, TABLET, ORAL, LUPIN PHARMACEU, 6 ea. BLIST PACK Active [id number] 2023 6 Pharmac y Data Transac tion Service Facilit y CYCLOBENZAP RINE HCL (cyclobenza simin HCl), 10 MG, TABLET, ORAL, TEVA [place], 1000 ea. BOTTLE Active [id number] 2023 30 Pharmac y Data Transac tion Service Facilit y CYCLOBENZAP RINE HCL (cyclobenza simin HCl), 10 MG, TABLET, ORAL, TEVA [place], 1000 ea. BOTTLE Active [id number] 2023 30 Pharmac y Data Transac [...] LOU LABS., 16 g AER W/ADAP Active [id number] 4 2023 48 Pharmac y Data Transac tion Service Facilit y FLUTICASONE PROPIONATE (FLUTICASON E PROPIONATE) , 50MCG, SPRAY SUSP, NASAL, LOU LABS., 16 g AER W/ADAP Active [id number] 4 2023 48 Pharmac y Data Transac [...] TABLET, ORAL, MYLAN, 1000 ea. BOTTLE Active [id number] 2023 28 Pharmac y Data Transac tion Service Facilit y PREDNISONE (prednisone ), 10 MG, TABLET, ORAL, MYLAN, 1000 ea. BOTTLE Cancele d [id number] : 2023 0 Pharmac y Data Transac tion Service Facilit y PREDNISONE (prednisone ), 10 MG, TABLET, ORAL, MYLAN, 1000 ea. BOTTLE Active [id number] 4 2023 28 Pharmac y Data Transac tion Service Facilit y predniSONE 10 mg oral tablet predniSO NE 10 mg oral tablet Start Date: 03/28/20 Status: Ordered Repeat number: 1 Ordered 2021 No Facilit y Access rizatriptan 10 mg oral tablet rizatrip campos 10 mg oral tablet Start Date: 12/14/20 Status: Ordered Repeat number: 1 Ordered 2021 No Facilit y Access topiramate 25 mg oral tablet topirama te [...] 1 Ordered 2021 No Facilit y Access Immunizations Combined list of available immunizations from the Department of Defense and Veterans Affairs facilities. Immunization Series Date Given Administered By Site Reaction Lot Number CVX Code Drug Blood Bank Calendar Control Clerk Status Comments Source tetanus, diphtheria, acellular pertu is 2021 [id number] sanofi pasteur complet ed tetanus, diphtheri a, acellular pertussis 05/20/21 Given Ambulat ory Pharmac y tetanus toxoid, reduced diphtheria toxoid, and acellular pertu is vaccine, adsorbed 1 2021 [id number] Sanofi Pasteur ([facility]) complet ed tetanus toxoid, reduced diphtheri a toxoid, and acellular pertussis vaccine, adsorbed [facility] influenza, injectable, quadrivalent 2020 [id number] 158 GlaxoSmithKli ne complet ed influenza , injectabl e, quadrival ent 12/26/20 Given Ambulat ory Pharmac y influenza, injectable, quadrivalent, contains preservative 11 2020 [id number] 158 [facility] ([facility]) complet ed influenza , injectabl e, quadrival ent, contains preservat ronn DoD COVID Vaccine Pfizer 2020 Paramjit weathers Arm [id number] 208 PFIZER complet ed COVID Vaccine Pfizer 12/11/20 Given Ambulat ory Pharmac y SARS-COV-2 (COVID-19) vaccine, mRNA, spike protein, LNP, preservative free, 30 mcg/0.3mL dose 2 2020 DEBBIE CROWDER [id number] 208 Pfizer, Inc (PFR) complet ed SARS-COV- 2 (COVID-19 ) vaccine, mRNA, spike protein, LNP, preservat ronn free, 30 mcg/0.3mL dose DoD COVID Vaccine Pfizer 2020 Paramjit weathers Jordi [id number] PFIZER complet ed COVID Vaccine Pfizer 11/20/20 Given Ambulat ory Pharmac y SARS-COV-2 (COVID-19) vaccine, mRNA, spike protein, LNP, preservative free, 30 mcg/0.3mL dose 1 2020 MULUGETA PRESLEY [id number] 208 Gociety, Inc (PFR) complet ed SARS-COV- 2 (COVID-19 [...] Influenza, injectable, MDCK, preservative free, quadrivalent 2019 BOGDASARIAN, () Not Given Influenza , injectabl e, MDCK, preservat ronn free, quadrival ent DoD influenza, injectable, quadrivalent- pf 2018 [id number] 150 Seqirus complet ed influenza , injectabl e, quadrival ent-pf 01/10/19 Given Ambulat ory Pharmac y Influenza, injectable, quadrivalent, preservative free 20 2018 [id number] 150 Seqirus (SEQ) complet ed Influenza , injectabl e, quadrival ent, preservat ronn free DoD influenza, seasonal, injectable 2017 [id number] 141 sanofi pasteur complet ed influenza , seasonal, injectabl e 12/20/17 Given Ambulat ory Pharmac y Influenza, seasonal, injectable 1 2017 [id number] 141 Sanofi Pasteur ([facility]) complet ed Influenza [...] ronn free DoD influenza, seasonal, injectable 2015 [id number] 141 CSL Behring complet ed influenza , seasonal, injectabl e 12/30/15 Given Ambulat ory Pharmac y Influenza, seasonal, injectable 1 2015 [id number] 141 CSL Biotherapies, Inc. (CSL) complet ed Influenza , seasonal, injectabl e DoD influenza, seasonal, injectable-pf 2014 [id number] 140 CSL Behring complet ed influenza , seasonal, injectabl e-pf 01/02/15 Given Ambulat ory Pharmac y Influenza, seasonal, injectable, preservative free 1 2014 140 CSL [employer]otherapies, Inc. (CSL) complet ed Influenza , [...] injectabl e DoD influenza, seasonal, injectable-pf 2012 [id number] 140 Novartis Pharmaceutica complet ed influenza , seasonal, injectabl e-pf 12/10/12 Given Ambulat ory Pharmac y Influenza, seasonal, injectable, preservative free 15 2012 [id number] 140 Novartis Pharmaceutica l Gareth. (NOV) complet ed Influenza , seasonal, injectabl e, preservat ronn free DoD influenza, seasonal, injectable-pf 2011 [id number] 140 CSL Behring complet ed influenza , seasonal, injectabl e-pf 11/26/11 Given Ambulat ory Pharmac y Influenza, seasonal, injectable, preservative free 14 2011 [id number] 140 CS Biotherapies, Inc. ([facility]) complet ed Influenza , seasonal, injectabl e, preservat ronn free DoD tetanus, diphtheria, acellular pertu is 2010 [id number] 115 sanofi pasteur complet ed tetanus, diphtheri a, acellular pertussis 02/10/11 Given Ambulat ory Pharmac y tetanus toxoid, reduced diphtheria toxoid, and acellular pertu is vaccine, adsorbed 0 2010 [id number] 115 Sanofi Pasteur ([facility]) complet ed tetanus toxoid, reduced diphtheri a toxoid, and acellular pertussis vaccine, adsorbed DoD influenza, seasonal, injectable-pf 2010 [id number] 140 CSL Behring complet ed influenza , seasonal, injectabl e-pf 12/13/10 Given Ambulat ory Pharmac y Influenza, seasonal, injectable, preservative free 0 2010 [id number] 140 CS Biotherapies, Inc. ([facility]) complet ed Influenza , seasonal, injectabl e, preservat ronn free DoD influenza virus vaccine,split 2009 [id number] 15 sanofi pasteur complet ed influenza virus vaccine,s plit 02/13/10 Given Ambulat ory Pharmac y influenza virus vaccine, split virus (incl. purified surface antigen)-reti red CODE 1 2009 [id number] 15 Sanofi Pasteur ([facility]) complet ed influenza virus vaccine, split virus (incl. purified surface antigen)- retired CODE DoD Novel influenza-H1N 1-09, injectable 2009 [id number] 1 127 Novartis Pharmaceutica complet ed Novel influenza -A9V5-06, injectabl e 4/28/10 Given Ambulat ory Pharmac y Novel influenza-H1N 1-09, injectable 1 2009 [id number] 1 127 Novartis Moonshoot. (NOV) complet ed Novel influenza -T1P7-47, injectabl e DoD influenza virus vaccine,split 2009 15 complet ed influenza virus vaccine,s plit 04/14/09 Given Ambulat ory Pharmac y influenza virus vaccine, split virus (incl. purified surface antigen)-reti red CODE 2 2009 15 Transcribed (TRS) complet ed influenza virus vaccine, split virus (incl. purified surface antigen)- retired CODE DoD influenza virus vaccine, live 2007 [id number] 111 [employer] Inc comple t ed influenza virus vaccine, live 11/25/07 Given Ambulat ory Pharmac y influenza virus vaccine, live, attenuated, for intranasal use 1 2007 [id number] 111 [employer] [place]. (MED) complet ed influenza virus vaccine, live, [...] retired CODE DoD influenza virus vaccine,split 2005 [id number] 15 sanofi pasteur complet ed influenza virus vaccine,s plit 01/01/06 Given Ambulat ory Pharmac y influenza virus vaccine, split virus (incl. purified surface antigen)-reti red CODE 1 2005 [id number] 15 Sanofi Pasteur ([facility]) complet ed influenza virus vaccine, split virus (incl. purified surface antigen)- retired CODE DoD influenza virus vaccine, whole virus 2004 [id number] 16 sanofi pasteur complet ed influenza virus vaccine, whole virus 01/14/05 Given Ambulat ory Pharmac y influenza virus vaccine,split 2004 [id number] 15 sanofi pasteur complet ed influenza virus vaccine,s plit 01/14/05 Given Ambulat ory Pharmac y influenza virus vaccine, split virus (incl. purified surface antigen)-reti red CODE 1 2004 [id number] 15 Sanofi Pasteur ([facility]) complet ed influenza virus vaccine, split virus (incl. purified surface antigen)- retired CODE DoD influenza virus vaccine, whole virus 1 2004 [id number] 16 Sanofi Pasteur ([facility]) complet ed influenza virus vaccine, whole virus DoD influenza virus vaccine, whole virus 2003 [id number] 16 Novartis Pharmaceutica ls complet ed influenza virus vaccine, whole virus 11/22/03 Given Ambulat ory Pharmac y anthrax vaccine 2003 [id number] 24 Emergent Biosolutions complet ed anthrax vaccine 11/22/03 Given Ambulat ory Pharmac y influenza virus vaccine, whole virus 0 2003 [id number] 16 PowderJect Pharmaceutica ls (PWJ) complet ed influenza virus vaccine, whole virus DoD anthrax vaccine 5 2003 [id number] [employer] [place] ([facility]) complet ed anthrax vaccine DoD typhoid vaccine, inactivated 2003 [id number] 101 sanofi pasteur complet ed typhoid vaccine, inactivat ed 07/12/03 Given Ambulat ory Pharmac y typhoid vaccine, parenteral, other than acetone-kille d, dried 0 2003 [id number] 41 Sanofi Pasteur ([facility]) complet ed typhoid vaccine, parentera l, other than acetone-k illed, dried DoD anthrax vaccine 2003 [id number] 24 [employer] complet ed anthrax vaccine 04/19/03 Given Ambulat ory Pharmac y anthrax vaccine 4 2003 [id number] 24 [employer] [place] ([facility]) complet ed anthrax vaccine DoD influenza [...] Ambulat ory Pharmac y vaccinia (smallpox) vaccine [id number] 75 [facility] complet ed vaccinia (smallpox ) vaccine 04/24/02 Given Ambulat ory Pharmac y vaccinia (smallpox) vaccine 0 [id number] 75 [facility] ([facility]) complet ed vaccinia (smallpox ) vaccine DoD anthrax vaccine 2001 [id number] 24 [employer]gent [employer] complet ed anthrax vaccine 03/03/02 Given Ambulat ory Pharmac y anthrax vaccine 2 2001 [id number] 24 [employer] [place] ([facility]) complet ed anthrax vaccine DoD anthrax vaccine 2001 [id number] 24 [employer] complet ed anthrax vaccine 02/16/02 Given Ambulat ory Pharmac y anthrax vaccine 1 2001 [id number] 24 [employer] [place] ([facility]) complet ed anthrax vaccine DoD hepatitis B adult vaccine 2001 [id number] 43 Merck & Company Inc complet ed hepatitis B adult vaccine 01/09/02 Given Ambulat ory Pharmac y influenza virus vaccine, whole virus 2001 [id number] 16 Unknown complet ed influenza virus vaccine, whole virus 01/09/02 Given Ambulat ory Pharmac y influenza virus vaccine, whole virus 0 2001 [id number] 16 Unknown (UNK) comple t ed influenza virus vaccine, whole virus DoD hepatitis B vaccine, adult dosage 3 2001 [id number] 43 Merck (MSD) complet ed hepatitis B vaccine, adult dosage DoD hepatitis B adult vaccine 2001 [id number] 43 Merck & Company Inc complet ed hepatitis B adult vaccine 05/30/01 Given Ambulat ory Pharmac y typhoid vaccine, inactivated 2001 [id number] 101 sanofi pasteur complet ed typhoid vaccine, inactivat ed 05/30/01 Given Ambulat ory Pharmac y typhoid vaccine, parenteral, other than acetone-kille d, dried 0 2001 [id number] 41 Sanofi Pasteur ([facility]) complet ed typhoid vaccine, parentera l, other than acetone-k illed, dried DoD hepatitis B vaccine, adult dosage 2 2001 [id number] 43 Merck (MSD) complet ed hepatitis B vaccine, adult dosage DoD tuberculin purified protein derivative 2001 [id number] complet ed tuberculi n purified protein derivativ e 05/19/01 Given Ambulat ory Pharmac y hepatitis B adult vaccine 2001 [id number] 43 Merck & Company Inc complet ed hepatitis B adult vaccine 04/22/01 Given Ambulat ory Pharmac y yellow fever vaccine 2001 [id number] 37 sanofi pasteur complet ed yellow fever vaccine 04/22/01 Given Ambulat ory Pharmac y yellow fever vaccine 0 2001 [id number] 37 Sanofi Pasteur ([facility]) complet ed yellow fever vaccine DoD [...] vaccine DoD tuberculin purified protein derivative [id number] [facility] complet ed tuberculi n purified protein derivativ e 05/05/00 Given Ambulat ory Pharmac y hepatitis A adult vaccine 2000 [id number] 52 Merck & Company Inc complet ed hepatitis A adult vaccine 05/05/00 Given Ambulat ory Pharmac y meningococcal polysaccharid e (MPSV4) 2000 [id number] 32 [facility] complet ed meningoco ccal polysacch aride (MPSV4) 05/05/00 Given Ambulat ory Pharmac y influenza virus vaccine, whole virus 2000 [id number] 16 [employer] complet ed influenza virus vaccine, whole virus 05/05/00 Given Ambulat ory Pharmac y poliovirus vaccine, inactivated 2000 [id number] 10 sanofi pasteur complet ed polioviru s vaccine, inactivat ed 05/05/00 Given Ambulat ory Pharmac y poliovirus vaccine, inactivated 0 2000 [id number] 10 Sanofi Pasteur ([facility]) complet ed polioviru s vaccine, inactivat ed DoD influenza virus vaccine, whole virus 0 2000 [id number] 16 [facility] ([facility]) complet ed influenza virus vaccine, whole virus DoD meningococcal polysaccharid e vaccine (MPSV4) 0 2000 [id number] 32 [facility] complet ed meningoco ccal polysacch aride [...] Prevention' s HIV diagnostic algorithm. Refer to [facility] Lab Guide for additional information : [email or web address]/ [email or web address] [email or web address] [email or web address] x Testing performed by Zaira peralta. 5600A-U [employer] EPILAB Miscellan eous Sendouts Repository Sample Received (05/25/23 12:14 PM) 05/24 N 5600A-U [employer] EPILAB Encounters Combined list of: 1) Encounters from Department of [facility] Affairs facilities going backup to the last 18 months, not all [place] inpatient encounters are included; 2) Encounters from the Department of Defense facilities going backup to 280 months. Location Location Details Encounter Type Encounter Number Reason For Visit Attending Provider ADM Date DC Date Status Disposition Source [place] [address](AFN G 104 Med Sq-FM) OUTPATIENT [id number] Notes Entered by: NICO GARCIA R 16 Sep 2016 0835 ------- ------- ------- ------- -- TriServ ice PHAQ TIFFANIE GARCIA 09/16 Released w/o Limitations [facility] [place] [address](A FNG 104 Med Sq-FM) [place] [address](AFN G 104 Med Sq-FM) OUTPATIENT [id number] Notes Entered by: VON MCQUEEN 17 Mar 2017 1202 ------- ------- ------- ------- -- Rx EVENS BYRNE 03/17 Released w/o Limitations [facility] [place] [address](A FNG 104 Med Sq-FM) [place] [address](AFN G 104 Med Sq-FM) OUTPATIENT [id number] Notes Entered by: KENZIE HUGO 15 Nov 2017 1511 ------- ------- ------- ------- -- KENZIE ROACH 11/15 Released w/o Limitations [facility] [place] [address](A FNG 104 Med Sq-FM) [place] [address](AFN G 104 Med Sq-FM) OUTPATIENT [id number] Notes Entered by: REJI GIRALDO 11 May 2018 1022 ------- ------- ------- ------- -- EVENS RAMSAY 05/11 Released w/o Limitations [facility] [place] [address](A FNG 104 Med Sq-FM) [place] [address](AFN G 104 Med Sq-FM) OUTPATIENT [id number] Notes Entered by: CRUZ SPARKS 11 May 2018 1148 ------- ------- ------- ------- -- DEL BOWIE 05/11 Released w/o Limitations [facility] [place] [address](A FNG 104 Med Sq-FM) [place] [address](AFN G 104 Med Sq-FM) OUTPATIENT [id number] Notes Entered by: CRUZ SPARKS 24 Mar 2019 1522 ------- ------- ------- ------- -- DEL BOWIE 03/24 [facility]ased w/[facility] Limitations [facility] [place] [address](A FNG 104 Med Sq-FM) [place] [address](AFN G 104 Med Sq-FM) OUTPATIENT [id number] Notes Entered by: MAGGIE DE OLIVEIRA 24 Jun 2020 0937 ------- ------- ------- ------- -- Annual Audiogr am KENZIE HUGO 06/24 Released w/o Limitations [facility] [place] [address](A FNG 104 Med Sq-FM) [facility] Prom[facility] Well[facility] [place]) OUTPATIENT [id number] MARIA GUADALUPE, DEL J 11/20 Released w/o Limitations [facility] Promoti on & Wellnes s [place]) [facility](AMH M01D [place]or) TELE CONSULT [id number] Notes Entered by: GILBERT SALVADOR 09 Dec 2020 1334 ------- ------- ------- ------- -- COVID Vaccina tion Locatio n Change GILBERT SALVADOR 12/09 Released to Self Care [facility](AMH M01D [place]or) [facility](Health Promotion & [facility]) OUTPATIENT [id number] PFIZER# 2 MAU SPENCER 12/11 Released w/o Limitations [facility] Promoti [facility] & Wellnes [facility] [place]) [place] [address](AFN G 104 Med Sq-FM) OUTPATIENT [id number] Notes Entered by: MARCEL LINK 20 May 2021 1003 ------- ------- ------- ------- -- Audiogr am/TIFFANIE GALLEGOS 05/20 Released w/o Limitations [facility] [place] [address](A FNG 104 Med Sq-FM) [place] [address](AFN G 104 Med Sq-FM) OUTPATIENT [id number] Notes Entered by: ALLIE [facility]ARD[facility] YIN RICHARDSON 04 Jun 2021 1221 ------- ------- ------- ------- -- Follow- Up Audiogr am KENZIE HUGO 06/04 Released w/o Limitations [facility] [place] [address](A FNG 104 Med Sq-FM) [place] [address](AFN G 104 Med Sq-FM) TELE CONSULT [id number] KENZIE HUGO 09[facility] [place] [place] [address](A FNG 104 Med Sq-FM) 8203R-104 MDG Between Visit [id number] 01/14 Discharge Disposition: Home or Self Care 8203R-1 04 MDG 8203R-104 MDG Between Visit [id number] 02/05 Discharge Disposition: Home or Self Care 8203R-1 04 MDG 8203R-104 MDG Care Not Rendered [id number] 06/16 Discharge Disposition: Home or Self Care 8203R-1 04 MDG Procedures Combined list of: 1) Procedures from Department of Veterans Affairs facilities going back up to thelast 18 months, not all VA non-surgical procedures are included; 2) All procedures from the Department of Defense facilities. Procedure Procedure Type Code Date Perfomer Comments Sourc e No data available for this section [facility] IMMUNIZATION ADM,INTRAMUSCULAR INJ,SEVERE AC RESPIRATORY SYNDROME CORONAVIR 2 (SARSCOV-2) (CORONAVIR DIS [COVID-19]) VACC,MRNALNP,SPIKE PROT,PRESRV FREE,30 MCG/0.3ML DOS,DILUENT RECONSTITUT;2ND DOSE 12/12/19 [facility] IMMUNIZATION ADM,INTRAMUSCULAR INJ,SEVERE AC RESPIRATORY SYNDROME CORONAVIR 2 (SARSCOV-2) (CORONAVIR DIS [COVID-19]) VACC,MRNALNP,SPIKE PROT,PRESRV FREE,30 MCG/0.3ML DOS,DILUENT RECONSTITUT;1ST DOSE 11/21/19 PSYCHOLOGICAL TSTING (INCL PSYCHODIAG ASSESSMNT, EMOTITY, INTELLECTUAL ABILITIES, PERSONALITY &PSYCHOPATHOLOGY, EG, MMPI), ADMINISTERED COMPUTER, W 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 Social History Type Response Date Comment Sourc e Sex Representation Female (finding) 06/17/2021 Unknown Organization Sexual Orientation Ambula tory Pharmacy Gender identity Ambulator y Pharmacy This section is an empty social history section. [facility] Assessment and Plan Combined list of [...] has not been referred to a civilian creative/art director. Hearing loss is not significant enough to trigger an OSHA reportable hearing loss investigation. PH will re-establish member's baseline in the left ear and continue annual surveillance and monitor annual hearing tests for further hearing loss. Extracted from:Title: Office Clinic Note Author: KENIZE HUGO PA Date: 06/14/23 Permanent shift left ear as compared with 2003, now is similar to what right ear has been for the last 6 years. 08/14/2024 8203R-104 MDG Functional Status Combined list of recent functional and cognitive assessments recorded at Department of Defense and Veterans Affairs ([place] Functional [place] Measurement (FIM) Scale: 1 = Total Assistance (Subject = 0% +), 2 = Maximal Assistance (Subject = 25% +), 3 = Moderate Assistance (Subject = 50% +), 4 = Minimal Assistance (Subject = 75% +), 5 = Supervision, 6 = Modified [place] (Device), 7 = Complete [place] (Timely, Safely). Assessment Date/Time Source Assessment Type Assessment Skill Assessment Score Assessment Details No data available for this section
== END 2024-08-14 09:25 | disposition home or self-care (01) ==
LOC: HO.HCS 08:46
PROVIDERS: Visit Provider Internal Medicine Cardiovascular Disease
DX: I77.810 Thoracic aortic ectasia (principal); R07.89 Other chest pain; Z01.810 Encounter for preprocedural cardiovascular examination
CPT/HCPCS: 93010; 99204; G2211

== ENCOUNTER → 2024-08-14 08:41 | Outpatient (BNVA) | payer OTHER, SELFPAY | PROVIDERS: Visit Provider Internal Medicine Cardiovascular Disease | DX: Z01.810 Encounter for preprocedural cardiovascular examination (principal); I77.810 Thoracic aortic ectasia; R07.89 Other chest pain | CPT/HCPCS: 93005; 99202 ==

== ENCOUNTER 2024-08-28 09:31 | Outpatient (AMB) | payer OTHER, SELFPAY ==
[2024-08-28 09:34] VITALS: BP 128/84; PULSE 92; TEMP 36.3; O2SAT 99; BMI 27.6
--- NOTE | 2024-08-28 09:34 | A.OFFPC_ITS ---
Vital Signs 08/28/24 09:34 Height 5 ft 6 in Weight 171 lb BMI 27.6 BP 128/84 Blood Pressure Location Lt brachial Position Sitting Pulse 92 Pulse Source Pulse Oximeter Temp 97.3 F Temp Source Temporal Artery Scan Pulse Oximetry (%) 99 Oxygen Delivery Method Room Air Intake Visit Reasons: annual exam Administrative Services Assistant Required: No Accompanied by: Self / Same As Patient Allergies Penicillins (PCN) Allergy (Intermediate, Verified 08/28/24 09:46) HIVES Medication List - Last Reconciled 08/28/24 by Tomasz Aguilar PA-C cetirizine (Zyrtec) 10 mg PO DAILY 90 days cyclobenzaprine 10 mg PO BEDTIME 30 days fluticasone propionate 50 mcg/actuation 2 sprays intranasal DAILY gabapentin 800 mg PO Q12H 90 days ibuprofen 800 mg PO TID rizatriptan take 1 tab at onset of headache; if no relief may repeat 1 tab after at least 2 hrs; max = 3 tabs/24 hr orally PRN; tretinoin 0.025% appl topical BEDTIME PRN zolpidem ER 12.5 mg PO BEDTIME 30 days Tobacco use date assessed: 04/24/24 Dental Screening Dental Screen Date: 04/24/24 HPI annual exam HPI Details Patient is a 42-year-old female here today for a routine annual physical.? Patient has a past medical history significant for major depressive disorder, insomnia, chronic microscopic hematuria, uterine myoma, migraine disorder. Concerns--> reports having intermittent tinnitus and popping in her ears. She feels she has hearing damage from loud noises in the . She is willing to get a hearing exam .. CHRONIC MEDICAL CONDITIONS--> Migraines:? HAVE BEEN FAIRLY STABLE WITH CURRENT MEDICATION REGIME. Her migraines are usually more frequent around her time of menses. .. ..Insomnia:? She continues to use zolpid em on a nightly basis also adding [id number] sleeping aids all without much relief.? She believes that her stress and anxiety as of late is causing her more sleep disturbance.? She is willing to see a neurologist sleep specialist for evaluation on her continued sleep disturbance. She is interested in getting a sleep study to evaluate for obstructive sleep apnea .. PTSD: She is speaking with a mental health therapist whom specializes in PTSD, she feels that it is helpful for her. .. Basal cell carcinoma of the nose: Patient followed by a sports intern in his due for surgery in October on her nose .. Borderline high cholesterol: Most recent lipid panel showing improved total cholesterol though still borderline high. Her triglycerides were elevated and patient does report having high fatty meats the week before. She continues to be very active going to the gym several times a week. PLAN: She will continue to work on low cholesterol diet and try to increase her cardiovascular fitness. .. Ascending aorta Dilation: She has been evaluated by a digital program manager for aortic root dilation, with plans for a repeat stress test and echocardiogram in October 2024, as well as a coronary calcium test to assess her risk for coronary artery disease. Her father has a history of coronary artery disease, but she notes lifestyle differences. Vaccines: UTD with tetanus vaccine , up-to-date with COVID vaccine, UTD withflu vaccine Mammogram: Done in March of 2024, BI-RADS 1 Clinical Specialist Medical Device: Patient is followed by a engineer remote control diesel and has up-to-date Pap [facility] Medical History Dermatitis Migraine aura without headache Microscopic hematuria Surgical History History of ectopic History of appendectomy Status post excision of lipoma History of tonsillectomy Family History (Updated 08/28/24 @ 09:52 by Tomasz Aguilar PA-C) Father CVD (cardiovascular disease) Diabetes CAD (coronary artery disease) Cancer Mother Diabetes Sister Asthma Sister No problems noted. Son In good health Daughter In good health Social History (Updated 08/28/24 @ 09:53 by Tomasz Aguilar PA-C) Housing: House Alcohol intake: current Alcohol intake frequency: holidays/special occasions only Alcohol type: wine Patient Tobacco Use Status: Never used Tobacco e-Cigarette/Vaping Use: Never Used Second Hand Smoke Exposure: No service: Yes Current occupational status: employed Current occupation: [employer] Cognitive needs: No Hearing needs: No Vision needs: No Female Reproductive History Menstrual Age of Menarche: 11 Questionnaire PHQ-9 Over the last 2 weeks, how often have you been bothered by any of the following problems? 1. Little interest or pleasure in doing things: not at all 2. Feeling down, depressed, or hopeless: not at all 3. Trouble falling or staying asleep, or sleeping too much: several days 4. Feeling tired or having little energy: several days 5. Poor appetite or overeating: not at all 6. Feeling bad about yourself - or that you are a failure or have let yourself or your family down: not at all 7. Trouble concentrating on things, such as reading the newspaper or watching television: several days 8. Moving or speaking so slowly that other people could have noticed. Or the opposite - being so fidgety or restless that you have been moving around a lot more than usual: not at all 9. Thoughts that you would be better off or of hurting yourself in some way: not at all Total score: 3 Depression Screening Interpretation: Positive Depression Screening Follow-up: Existing condition and In treatment Depression Screening Done: Yes 56964 - PHQ-9 Billing: Yes Source: Developed by Drs. Qamar Oneal, Pastora Johnson, Enrrique Meredith and colleagues, with an educational elin from [employer]. Thrive Questionnaire Date Thrive assessed: 08/28/24 I am a: Patient What is your living situation today?: I have a steady place to live Within the past 12 months, did the food you bought not last and you didn't have the money to get more?: Sometimes True Within the past 12 months, did you worry whether your food would run out before you got money to buy more?: Never true Do you have trouble paying for medicines?: No Do you have trouble getting transportation to medical appointments?: No Do you have trouble paying your heating and electricity bill?: No Do you have trouble taking care of your child, family member or friend?: No Do you have trouble with day-to-day activities such as bathing, preparing meals, shopping, managing finances, etc.?: No Are you currently unemployed and looking for a job?: No Are you interested in more education?: Yes Please select the resources that you would like help with: None Currently or been in a relationship where the following occur: No concerns reported THRIVE Score: 1 AUDIT C Alcohol Use Questionnaire (AUDIT-C) 1. How often do you have a drink containing alcohol?: 2-4 times a month 2. How many drinks containing alcohol do you have on a typical day when you are drinking?: 1 or 2 3. How often do you have six or more drinks on one occasion?: Never Total Score: 2 CAYDEN-7 AMB Questionnaire CAYDEN-7 Date CAYDEN - 7 assessed: 08/28/24 Feeling nervous, anxious, or on edge: 1 = Several days Not being able to stop or control worryin = Several days Worrying too much about different things: 1 = Several days Trouble relaxin = Several days Being so restless that it is hard to sit still: 0 = Not at all Becoming easily annoyed or irritable: 1 = Several days Feeling afraid as if something awful might happen: 0 = Not at all Total CAYDEN-7 score (0-4 normal; 5-9 mild; 10-14 moderate; 15-21 severe): 5 Source: Developed by Drs. Qamar Oneal, Pastora Johnson, Enrrique Meredith and colleagues, with an educational elin from [employer]. CAYDEN-7 Assessment Billing CAYDEN-7 Assessment Tool: CAYDEN-7 Assessment 57191 Review of Systems Const Denies body aches, Denies chills, Denies excessive sweating, Denies fatigue, Denies fever(s) and Denies headache(s) Eyes Denies blurry vision ENT Denies dysphagia, Denies vertigo, Denies dizziness, Denies headache(s), Denies hearing loss and Denies tinnitus Card Denies chest pain, Denies chest pain with activity, Denies syncope, Denies irregular heart rhythm and Denies dyspnea Resp Denies chest congestion, Denies cough, Denies hemoptysis, Denies dyspnea and Denies wheezing GI Denies abdominal pain, Denies melena, Denies hematochezia, Denies coffee ground emesis, Denies dysphagia, Denies diarrhea, Denies nausea and Denies vomiting Denies urinary frequency, Denies dysuria, Denies urinary hesitancy and Denies urinary urgency Musc Denies arthralgias, Denies limited range of motion, Denies muscle cramps and Denies muscle weakness Skin/Breast Denies rash and Denies skin ulcer Neuro Denies Abnormal speech present, Denies confusion, Denies vertigo, Denies dizziness, Denies syncope, Denies headache(s), Denies memory loss and Denies seizure-like activity Psych Denies anxiety, Denies confusion, Denies depression, Denies memory loss, Denies panic attacks and Denies paranoia Endo Denies excessive sweating, Denies fatigue, Denies flushing, Denies polydipsia and Denies polyuria Aller/Immun Denies wheezing Physical exam (Primary Care) Vital Signs: Last Vital Signs Temp 97.3 F 08/28/24 09:34 Pulse 92 08/28/24 09:34 BP 128/84 08/28/24 09:34 Pulse Ox 99 08/28/24 09:34 Oxygen Delivery Method Room Air 08/28/24 09:34 BMI result Body Mass Index 27.6 Tobacco/Smoking Status: Tobacco use Status Tobacco use date assessed 04/24/24 08/28/24 09:36 Patient Tobacco Use Status Never used Tobacco 08/28/24 09:53 e-Cigarette/Vaping Use Never Used 08/28/24 09:53 PHQ-9: PHQ-9 Score PHQ-9: Total score 3 08/28/24 09:47 Depression Screening Interpretation: Positive Depression Screening Follow-up: Existing condition and In treatment Thrive Assessment: Date of Thrive Assessment Date Thrive assessed 08/28/24 08/28/24 09:44 Currently or been in a relationship where the following occur: No concerns reported Const General: cooperative, comfortable, no acute distress, alert and awake; No confusion Orientation/consciousness: oriented to person, oriented to place, patient oriented x3 and No confusion HENMT Head: Yes normocephalic Ears: external ears normal and TM's normal bilaterally Face and sinus: No sinus tenderness Mouth: Normal oral and palatal mucosa present and tongue normal Teeth and gingiva: dentition normal and gingiva normal Throat: Yes posterior oropharynx normal, Yes tonsils normal and Yes uvula midline Eyes Conjunctivae: conjunctivae normal Sclerae: sclerae normal Pupils: Equal, round and reactive pupils present EOM: EOMs intact bilaterally Direct Ophthalmoscopy: No no photophobia Neck Neck: Yes no lymphadenopathy, No tender and Yes no JVD Thyroid: Thyroid normal Carotids: no bruits Chest Chest palpation & inspection: no tenderness Resp Effort & Inspection: normal respiratory effort, no audible wheezes, not labored and no stridor Auscultation: no crackles, no rales, no rhonchi and no wheezes Cardio Jugular venous distension: no JVD Rate: regular rate, not bradycardic and not tachycardic Rhythm: regular rhythm Bruits: no carotid bruits Peripheral pulses: Peripheral pulses 2+ throughout GI Inspection: Yes normal to inspection, No abdominal wall ecchymosis and No visible herniation Palpation (GI): Soft to palpation, nontender, no guarding, not rigid and No hepatosplenomegaly present Auscultation: normoactive bowel sounds General: Yes no CVA tenderness Back/Spine/Pelvis Back: no CVA tenderness and No back tenderness Cervical Spine: cervical ROM normal Thoracic/Lumbar Spine: thoracic and lumbar spine normal to inspection, straight leg raise negative bilaterally, No thoraco-lumbar ROM limited and No lumbar spinal tenderness Skin Lesions: no lesions Rashes: no rashes Wounds: no wounds Neuro General: oriented to person, oriented to place, patient oriented x3, CN's II-XI intact bilaterally and No confusion Cranial nerves: Yes Equal, round and reactive pupils present and Yes Normal accommodation reflex present Cognition (Neuro): normal cognition Speech: No Abnormal speech present Gait exam (Neuro): Normal gait present Motor exam (neuro): 5/5 motor strength present throughout Extrem Right upper extremity: full ROM; no cyanosis Left upper extremity: full ROM; no cyanosis Right lower extremity: no edema Left lower extremity: no edema Psych Appearance: grossly normal Mental Status: mental status grossly normal Affect: normal affect Attitude: cooperative Thought process: Normal thought process present Coding Level of Care Code Est Pt Prev Care 40-64y(70907) Diagnoses Annual physical exam Z00.00 CECY (obstructive sleep apnea) G47.33 Tinnitus, bilateral H93.13 Mild ascending aorta dilatation I77.810 Borderline high cholesterol E78.9 Additional Codes CAYDEN-7 Assessment Billing - CAYDEN-7 Assessment Tool: CAYDEN-7 Assessment 86370 ([id number]) PHQ-9 - 98996 - PHQ-9 Billing: Yes ([id number]) Assessment & Plan Assessment & Plan (1) Annual physical exam: Code(s): Z00.00 - Encounter for general adult medical examination without abnormal findings Category: Medical Plan: As per HPI (2) CECY (obstructive sleep apnea): Code(s): G47.33 - Obstructive sleep apnea (adult) (pediatric) Category: Medical Plan: Patient reports daytime somnolence and difficulty sleeping, she has been told she has apneic episodes at night. She would like a sleep study to evaluate for obstructive sleep apnea. (3) Tinnitus, bilateral: Code(s): H93.13 - Tinnitus, bilateral Category: Medical Plan: Patient reports tinnitus related to exposure to loud noises in the . She would like to get a here he exam. (4) Mild ascending aorta dilatation: Code(s): I77.810 - Thoracic aortic ectasia Category: Medical Plan: And found to have a mild ascending aorta dilation, now followed by Cardiology and will be getting more testing including a coronary artery calcium score. She reports she feels her heart disease related to stress secondary to the . She does report still having chest pain from time to time. (5) Borderline high cholesterol: Code(s): E78.9 - Disorder of lipoprotein metabolism, unspecified Category: Medical Plan: Patient has a history of borderline high cholesterol, has been working on lifestyle and dietary modifications to reduce her cholesterol. Orders: Orders Comprehensive [place]. Panel Fast Today Z13.1 - Encounter for screening for diabetes mellitus RT home sleep study Today F51.01 - Primary insomnia, G47.33 - Obstructive sleep apnea (adult) (pediatric) Complete Blood Count no Diff Today Z13.1 - Encounter for screening for diabetes mellitus Lipid Panel Today E78.9 - Disorder of lipoprotein metabolism, unspecified Referrals Speech and Hearing Referral H93.13 - Tinnitus, bilateral
--- OUTSIDE RECORDS SUMMARY | 2024-08-28 10:29 | XMS_ITS | Continuity of Care Document ---
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 It does not include entries that were removed or entered in error. Problem Status Onset Date Problem Type Date of Resolution Comments Source NO PSYCHIATRIC DIAGNOSIS OR CONDITION ON AXIS I Inactive Condition [facility] Medications Combined list of outpatient medications from Department of Defense and Veterans Affairs facilities.Medications provided include 1) outpatient medications from the last 15 months, and 2) patient-reported medications. Medication Details Route Status Patient Instructions Prescription Expires Prescription Number Last Dispense Date Ordering Provider Order Date Order Qty Source AZITHROMYCI N (azithromyc in), 250 MG, TABLET, ORAL, LUPIN PHARMACEU, 6 ea. BLIST PACK Active [id number] 2023 6 Pharmac y Data Transac tion Service Facilit y AZITHROMYCI N (azithromyc in), 250 MG, TABLET, ORAL, LUPIN PHARMACEU, 6 ea. BLIST PACK Active [id number] 4 2023 6 Pharmac y Data Transac tion Service Facilit y CYCLOBENZAP RINE HCL (cyclobenza simin HCl), 10 MG, TABLET, ORAL, TEVA [place], 1000 ea. BOTTLE Active [id number] 4 2023 30 Pharmac y Data Transac tion Service Facilit y CYCLOBENZAP RINE HCL (cyclobenza simin HCl), 10 MG, TABLET, ORAL, TEVA [place], 1000 ea. BOTTLE Active [id number] 2023 30 Pharmac y Data Transac [...] TABLET, ORAL, MYLAN, 1000 ea. BOTTLE Active [id number] 2023 28 Pharmac y Data Transac tion Service Facilit y PREDNISONE (prednisone ), 10 MG, TABLET, ORAL, MYLAN, 1000 ea. BOTTLE Cancele d [id number] : 2023 0 Pharmac y Data Transac tion Service Facilit y PREDNISONE (prednisone ), 10 MG, TABLET, ORAL, MYLAN, 1000 ea. BOTTLE Active [id number] 4 2023 28 Pharmac y Data Transac [...] Site Reaction Lot Number CVX Code Drug Ammonia Technician Status Comments Source tetanus, diphtheria, acellular pertu is 2021 [id number] sanofi pasteur complet ed tetanus, diphtheri a, acellular pertussis 05/20/21 Given Ambulat ory Pharmac y tetanus toxoid, reduced diphtheria toxoid, and acellular pertu is vaccine, adsorbed 1 2021 [id number] Sanofi Pasteur ([facility]) complet ed tetanus toxoid, reduced diphtheri a toxoid, and acellular pertussis vaccine, adsorbed DoD influenza, injectable, quadrivalent 2020 [id number] [facility] complet ed influenza , injectabl e, quadrival ent 12/26/20 Given Ambulat ory Pharmac y influenza, injectable, quadrivalent, contains preservative 11 2020 [id number] 158 [facility] (SKB) complet ed influenza , injectabl e, quadrival ent, contains preservat ronn DoD COVID Vaccine Pfizer [address] [facility] Arm [id number] 208 PFIZER complet ed COVID Vaccine Pfizer 12/11/20 Given Ambulat ory Pharmac y SARS-COV-2 (COVID-19) vaccine, mRNA, spike protein, LNP, preservative free, 30 mcg/0.3mL dose 2 2020 DEBBIE CROWDER [id number] 208 Pfizer, Inc (PFR) complet ed SARS-COV- 2 (COVID-19 ) vaccine, mRNA, spike protein, LNP, preservat ronn free, 30 mcg/0.3mL dose DoD COVID Vaccine Pfizer 2020 zzL t Arm [id number] PFIZER complet ed COVID Vaccine Pfizer 11/20/20 Given Ambulat ory Pharmac y SARS-COV-2 (COVID-19) vaccine, mRNA, spike protein, LNP, preservative free, 30 mcg/0.3mL dose 1 2020 MULUGETA PRESLEY [id number] Pfizer, Inc (PFR) complet ed SARS-COV- [...] contains preservat ronn DoD Influenza, injectable, Madin [place] Canine Kidney, preservative free, quadrivalent 0 2019 171 (MVX) complet ed Influenza , injectabl e, Madin Julianne Canine Kidney, preservat ronn free, quadrival ent DoD Influenza, injectable, MDCK, preservative free, quadrivalent 2019 [id number], () Not Given Influenza , injectabl e, MDCK, preservat ronn free, quadrival ent DoD influenza, injectable, quadrivalent- pf 2018 [id number] 150 Seqirus complet ed influenza , injectabl e, quadrival ent-pf 01/10/19 Given Ambulat ory Pharmac y Influenza, injectable, quadrivalent, preservative free 20 2018 [id number] 150 Seqirus (SEQ) complet ed Influenza , injectabl e, quadrival ent, preservat ronn free DoD influenza, seasonal, injectable 2017 [id number] 141 sanofi pasteur complet ed influenza , seasonal, injectabl e 12/20/17 Given Ambulat ory Pharmac y Influenza, seasonal, injectable 1 2017 [id number] 141 Sanofi Pasteur ([facility]) complet ed Influenza [...] ronn free DoD influenza, seasonal, injectable 2015 [id number] 141 CSL Behring complet ed influenza , seasonal, injectabl e 12/30/15 Given Ambulat ory Pharmac y Influenza, seasonal, injectable 1 2015 [id number] 141 CS 247 [employer]. (CSL) complet ed Influenza , seasonal, injectabl e DoD influenza, seasonal, injectable-pf 2014 [id number] 140 CSL Behring complet ed influenza , seasonal, injectabl e-pf 01/02/15 Given Ambulat ory Pharmac y Influenza, seasonal, injectable, preservative free 1 2014 140 CS 247 [employer]. (CSL) complet ed Influenza , seasonal, [...] injectabl e DoD influenza, seasonal, injectable-pf 2012 [id number] 140 Novartis Pharmaceutica complet ed influenza , seasonal, injectabl e-pf 12/10/12 Given Ambulat ory Pharmac y Influenza, seasonal, injectable, preservative free 15 2012 [id number] 140 Novartis Pharmaceutica l Gareth. (NOV) complet ed Influenza , seasonal, injectabl e, preservat ronn free DoD influenza, seasonal, injectable-pf 2011 [id number] 140 CSL Behring complet ed influenza , seasonal, injectabl e-pf 11/26/11 Given Ambulat ory Pharmac y Influenza, seasonal, injectable, preservative free 14 2011 [id number] 140 [facility] [employer] (CS) complet ed Influenza , seasonal, injectabl e, preservat ronn free DoD tetanus, diphtheria, acellular pertu is 2010 [id number] 115 sanofi pasteur complet ed tetanus, diphtheri a, acellular pertussis 02/10/11 Given Ambulat ory Pharmac y tetanus toxoid, reduced diphtheria toxoid, and acellular pertu is vaccine, adsorbed 0 2010 [id number] 115 Sanofi Pasteur ([facility]) complet ed tetanus toxoid, reduced diphtheri a toxoid, and acellular pertussis vaccine, adsorbed DoD influenza, seasonal, injectable-pf 2010 [id number] 140 CSL Behring complet ed influenza , seasonal, injectabl e-pf 12/13/10 Given Ambulat ory Pharmac y Influenza, seasonal, injectable, preservative free 0 2010 [id number] 140 [facility] 247 [employer], Inc. ([facility]) complet ed Influenza , seasonal, injectabl e, preservat ronn free DoD influenza virus vaccine,split 2009 [id number] 15 sanofi pasteur complet ed influenza virus vaccine,s plit 02/13/10 Given Ambulat ory Pharmac y influenza virus vaccine, split virus (incl. purified surface antigen)-reti red CODE 1 2009 [id number] 15 Sanofi Pasteur ([facility]) complet ed influenza virus vaccine, split virus (incl. purified surface antigen)- retired CODE DoD Novel influenza-H1N 1-09, injectable 2009 [id number] 127 Novartis Pharmaceutica ls complet ed Novel influenza -G3V4-86, injectabl e 07/08/09 Given Ambulat ory Pharmac y Novel influenza-H1N 1-09, injectable 1 2009 [id number] 1 127 Novartis Pharmaceutica l Gareth. (NOV) complet ed Novel influenza -P3J2-81, injectabl e DoD influenza virus vaccine,split 2009 15 complet ed influenza virus vaccine,s plit 04/14/09 Given Ambulat ory Pharmac y influenza virus vaccine, split virus (incl. purified surface antigen)-reti red CODE 2 2009 15 Transcribed (TRS) complet ed influenza virus vaccine, split virus (incl. purified surface antigen)- retired CODE DoD influenza virus vaccine, live 2007 [id number] 111 [employer] Inc comple t ed influenza virus vaccine, live 11/25/07 Given Ambulat ory Pharmac y influenza virus vaccine, live, attenuated, for intranasal use 1 2007 [id number] 111 [employer]. (MED) complet ed influenza virus vaccine, live, attenuate d, for intranasa l use DoD typhoid Vi capsular polysaccharid e vac 2007 [id number] 101 sanofi pasteur complet ed typhoid Vi capsular polysacch aride vac 11/03/07 Given Ambulat ory Pharmac y typhoid Vi capsular polysaccharid e vaccine 1 2007 [id number] 101 Sanofi Pasteur ([facility]) complet ed typhoid Vi capsular polysacch aride vaccine DoD influenza virus vaccine,split 2006 15 complet ed influenza virus vaccine,s plit 01/21/07 Given Ambulat ory Pharmac y influenza virus vaccine, split virus (incl. purified surface antigen)-reti red CODE 1 2006 15 Transcribed (TRS) complet ed influenza virus vaccine, split virus (incl. purified surface antigen)- retired CODE DoD influenza virus vaccine,split 2005 [id number] 15 sanofi pasteur complet ed influenza virus vaccine,s plit 01/01/06 Given Ambulat ory Pharmac y influenza virus vaccine, split virus (incl. purified surface antigen)-reti red CODE 1 2005 [id number] 15 Sanofi Pasteur ([facility]) complet ed influenza virus vaccine, split virus (incl. purified surface antigen)- retired CODE DoD influenza virus vaccine, whole virus 2004 [id number] 16 sanofi pasteur complet ed influenza virus vaccine, whole virus 01/14/05 Given Ambulat ory Pharmac y influenza virus vaccine,split 2004 [id number] 15 sanofi pasteur complet ed influenza virus vaccine,s plit 01/14/05 Given Ambulat ory Pharmac y influenza virus vaccine, split virus (incl. purified surface antigen)-reti red CODE 1 2004 [id number] 15 Sanofi Pasteur ([facility]) complet ed influenza virus vaccine, split virus (incl. purified surface antigen)- retired CODE [facility] influenza virus vaccine, whole virus 1 2004 [id number] 16 Sanofi Pasteur ([facility]) complet ed influenza virus vaccine, whole virus DoD influenza virus vaccine, whole virus 2003 [id number] 16 Novartis Pharmaceutica ls complet ed influenza virus vaccine, whole virus 11/22/03 Given Ambulat ory Pharmac y anthrax vaccine 2003 [id number] 24 [employer]gent [employer] complet ed anthrax vaccine 11/22/03 Given Ambulat ory Pharmac y influenza virus vaccine, whole virus 0 2003 [id number] 16 PowderJect Pharmaceutica ls (PWJ) complet ed influenza virus vaccine, whole virus DoD anthrax vaccine 5 2003 [id number] 24 [facility] ([facility]) complet ed anthrax vaccine DoD typhoid vaccine, inactivated 2003 [id number] 101 sanofi pasteur complet ed typhoid vaccine, inactivat ed 07/12/03 Given Ambulat ory Pharmac y typhoid vaccine, parenteral, other than acetone-kille d, dried 0 2003 [id number] 41 Sanofi Pasteur ([facility]) complet ed typhoid vaccine, parentera l, other than acetone-k illed, dried DoD anthrax vaccine 2003 [id number] 24 [employer] complet ed anthrax vaccine 04/19/03 Given Ambulat ory Pharmac y anthrax vaccine 4 2003 [id number] 24 Emergent [facility] ([facility]) complet ed anthrax vaccine DoD influenza [...] ory Pharmac y vaccinia (smallpox) vaccine 2002 [id number] 75 InTranslimit [facility] complet ed vaccinia (smallpox ) vaccine 04/24/02 Given Ambulat ory Pharmac y vaccinia (smallpox) vaccine 0 2002 [id number] 75 [facility] complet ed vaccinia (smallpox ) vaccine DoD anthrax vaccine 2001 [id number] 24 Emergent [employer] complet ed anthrax vaccine 03/03/02 Given Ambulat ory Pharmac y anthrax vaccine 2 2001 [id number] 24 [employer]gent [employer] [place] ([facility]) complet ed anthrax vaccine DoD anthrax vaccine 2001 [id number] 24 [employer] complet ed anthrax vaccine 02/16/02 Given Ambulat ory Pharmac y anthrax vaccine 1 2001 [id number] 24 [employer] [place] ([facility]) complet ed anthrax vaccine DoD hepatitis B adult vaccine 2001 [id number] 43 Merck & Company Inc complet ed hepatitis B adult vaccine 01/09/02 Given Ambulat ory Pharmac y influenza virus vaccine, whole virus 2001 [id number] 16 Unknown complet ed influenza virus vaccine, whole virus 01/09/02 Given Ambulat ory Pharmac y influenza virus vaccine, whole virus 0 2001 [id number] 16 Unknown (UNK) comple t ed influenza virus vaccine, whole virus DoD hepatitis B vaccine, adult dosage 3 2001 [id number] 43 Merck (MSD) complet ed hepatitis B vaccine, adult dosage DoD hepatitis B adult vaccine 2001 [id number] 43 Merck & Company Inc complet ed hepatitis B adult vaccine 05/30/01 Given Ambulat ory Pharmac y typhoid vaccine, inactivated 2001 [id number] 101 sanofi pasteur complet ed typhoid vaccine, inactivat ed 05/30/01 Given Ambulat ory Pharmac y typhoid vaccine, parenteral, other than acetone-kille d, dried 0 2001 [id number] 41 Sanofi Pasteur ([facility]) complet ed typhoid vaccine, parentera l, other than acetone-k illed, dried DoD hepatitis B vaccine, adult dosage 2 2001 [id number] 43 Merck (MSD) complet ed hepatitis B vaccine, adult dosage DoD tuberculin purified protein derivative 2001 [id number] complet ed tuberculi n purified protein derivativ e 05/19/01 Given Ambulat ory Pharmac y hepatitis B adult vaccine 2001 [id number] 43 Merck & Company Inc complet ed hepatitis B adult vaccine 04/22/01 Given Ambulat ory Pharmac y yellow fever vaccine 2001 [id number] 37 sanofi pasteur complet ed yellow fever vaccine 04/22/01 Given Ambulat ory Pharmac y yellow fever vaccine 0 2001 [id number] 37 Sanofi Pasteur ([facility]) complet ed yellow fever vaccine DoD [...] vaccine DoD tuberculin purified protein derivative 2000 [id number] 96 [facility] ed tuberculi n purified protein derivativ e 05/05/00 Given Ambulat ory Pharmac y hepatitis A adult vaccine 2000 [id number] 52 Merck & Company Inc complet ed hepatitis A adult vaccine 05/05/00 Given Ambulat ory Pharmac y meningococcal polysaccharid e (MPSV4) 2000 [id number] 32 [facility] complet ed meningoco ccal polysacch aride (MPSV4) 05/05/00 Given Ambulat ory Pharmac y influenza virus vaccine, whole virus 2000 [id number] 16 [employer] complet ed influenza virus vaccine, whole virus 05/05/00 Given Ambulat ory Pharmac y poliovirus vaccine, inactivated 2000 [id number] 10 sanofi pasteur complet ed polioviru s vaccine, inactivat ed 05/05/00 Given Ambulat ory Pharmac y poliovirus vaccine, inactivated 0 2000 [id number] 10 Sanofi Pasteur ([facility]) complet ed polioviru s vaccine, inactivat ed DoD influenza virus vaccine, whole virus 0 2000 [id number] 16 Kassie (WAL) complet ed influenza virus vaccine, whole [...] Prevention' s HIV diagnostic algorithm. Refer to [facility] Guide for additional information : [email or web address]. [facility]/ kj/kx5/EPIL ab/Pages/la [email or web address] x Testing performed by Zaira kulkarni 5600A-U [facility] EPILAB Miscellan eous Sendouts Repository Sample Received (05/25/23 12:14 PM) 05/24 N 5600A-U [facility] EPILAB Encounters Combined list of: 1) Encounters from Department of [facility] Affairs facilities going backup to the last 18 months, not all [place] inpatient encounters are included; 2) Encounters from the Department of Defense facilities going backup to 280 months. Location Location Details Encounter Type Encounter Number Reason For Visit Attending Provider ADM Date DC Date Status Disposition Source [place] [address](AFN G 104 Med Sq-FM) OUTPATIENT [id number] Notes Entered by: NICO GARCIA 16 Sep 2016 0835 ------- ------- ------- ------- -- TriServ ice TIFFANIE YEH 09/16 [facility]ased w[facility] Limitations [facility] [place] [address](A FNG 104 Med Sq-FM) [place] [address](AFN G 104 Med Sq-FM) OUTPATIENT [id number] Notes Entered by: VON MCQUEEN 17 Mar 2017 1202 ------- ------- ------- ------- -- Rx EVENS BYRNE 03/17 Released w/o Limitations [facility] [place] [address](A FNG 104 Med Sq-FM) [place] [address](AFN G 104 Med Sq-FM) OUTPATIENT [id number] Notes Entered by: KENZIE HUGO 15 Nov 2017 1511 ------- ------- ------- ------- -- KENZIE ROACH 11/15 [facility]ased w/o Limitations [facility] [place] [address](A FNG 104 Med Sq-FM) [place] [address](AFN G 104 Med Sq-FM) OUTPATIENT [id number] Notes Entered by: REJI GIRALDO 11 May 2018 1022 ------- ------- ------- ------- -- EVENS RAMSAY 05/11 [facility] w/o Limitations [facility] [place] [address](A FNG 104 Med Sq-FM) [place] [id number](AFN G 104 Med Sq-FM) OUTPATIENT [id number] Notes Entered by: CRUZ SPARKS 11 May 2018 1148 ------- ------- ------- ------- -- DEL BOWIE 05/11 Released w/o Limitations [facility] [place] [address](A FNG 104 Med Sq-FM) [place] [address](AFN G 104 Med Sq-FM) OUTPATIENT [id number] Notes Entered by: CRUZ SPARKS 24 Mar 2019 1522 ------- ------- ------- ------- -- DEL BOWIE 03/24 Released w/o Limitations [facility] [place] [address](A FNG 104 Med Sq-FM) [place] [address](AFN G 104 Med Sq-FM) OUTPATIENT [id number] Notes Entered by: MAGGIE DE OLIVEIRA 24 Jun 2020 0937 ------- ------- ------- ------- -- Annual Audio KENZIE Sands 06/24 [facility]ased w/o Limitations [facility] [place] [address](A FNG 104 Med Sq-FM) [facility] [place]) OUTPATIENT [id number] DEL LERMA 11/20 Released w/o Limitations [facility] Promoti on & [facility] s [place]) [facility] M01D [place]) TELE CONSULT [id number] Notes Entered by: GILBERT SALVADOR 09 Dec 2020 1334 ------- ------- ------- ------- -- COVID Vaccina tion Locatio n Change GILBERT SALVADOR 12/09 Released to Self Care [facility] M01D [place]) [facility] [place]) OUTPATIENT [id number] PFIZER# 2 MAU SPENCER 12/11 Released w/o Limitations [facility] Promoti on & [facility]) [place] [address](AFN G 104 Med Sq-FM) OUTPATIENT [id number] Notes Entered by: MARCEL LINK 20 May 2021 1003 ------- ------- ------- ------- -- Audiogr am/TIFFANIE GALLEGOS 05/20 Released w/o Limitations [facility] [place] [address](A FNG 104 Med Sq-FM) [place] [address](AFN G 104 Med Sq-FM) OUTPATIENT [id number] Notes Entered by: MAGGIE DE OLIVEIRA 04 Jun 2021 1221 ------- ------- ------- ------- -- Follow- Up Audiogr am KENZIE HUGO 06/04 Released w/o Limitations [facility] [place] [address](A FNG 104 Med Sq-FM) [place] [address](AFN G 104 Med Sq-FM) TELE CONSULT [id number] KENZIE HUGO 09/24 [facility] [place] [place] [address](A FNG 104 Med Sq-FM) 8203R-104 G Between Visit [id number] 01/14 Discharge Disposition: Home or Self Care 8203R-1 04 MDG 8203R-104 MDG Between Visit [id number] 02/05 Discharge Disposition: Home or Self Care 8203R-1 04 MDG 8203R-104 MDG Care Not Rendered [id number] 06/16 Discharge Disposition: Home or Self Care 8203R-1 04 MDG Procedures Combined list of: 1) Procedures from Department of Veterans Affairs facilities going back up to thelast 18 months, not all [place] non-surgical procedures are included; 2) All procedures from the Department of Defense facilities. 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 08/22/19 07 DoD IMMUNIZATION ADM,INTRAMUSCULAR INJ,SEVERE AC RESPIRATORY SYNDROME CORONAVIR 2 (SARSCOV-2) (CORONAVIR DIS [COVID-19]) VACC,MRNALNP,SPIKE PROT,PRESRV FREE,30 MCG/0.3ML DOS,DILUENT RECONSTITUT;2ND DOSE 12/12/19 21 [facility] IMMUNIZATION ADM,INTRAMUSCULAR INJ,SEVERE AC RESPIRATORY SYNDROME CORONAVIR 2 (SARSCOV-2) (CORONAVIR DIS [COVID-19]) VACC,MRNALNP,SPIKE PROT,PRESRV FREE,30 MCG/0.3ML DOS,DILUENT RECONSTITUT;1ST DOSE 11/21/19 21 [facility] Social History Combined list of available smoking, tobacco, and other social history from Department of Defense and Veterans Affairs facilities. Social History Type Response Date Comment Sourc e Sex Representation Female (finding) 06/17/2021 Unknown Organization Sexual Orientation Amb[facility] tory Pharmacy Gender identity Ambulator y Pharmacy This section is an empty social history section. 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 Hearing loss is not significant enough to [...] has been for the last 6 years. 08/28/2024 8203R-104 MDG Functional Status Combined list of recent functional and cognitive assessments recorded at Department of Defense and Veterans Affairs (VA).VA Functional Mckinney Measurement (FIM) Scale: 1 = Total Assistance (Subject = 0% +), 2 = Maximal Assistance (Subject = 25% +), 3 = Moderate Assistance (Subject = 50% +), 4 = Minimal Assistance (Subject = 75% +), 5 = Supervision, 6 = Modified Mckinney (Device), 7 = Complete Mckinney (Timely, Safely). Assessment Date/Time Source Assessment Type Assessment Skill Assessment Score Assessment Details No data available for this section
== END 2024-08-28 10:17 | disposition home or self-care (01) ==
LOC: HO.HMCH 09:32
PROVIDERS: PCP Physician Assistant; Visit Provider Physician Assistant
DX: Z00.00 Encounter for general adult medical examination without abnormal findings (principal); G47.33 Obstructive sleep apnea (adult) (pediatric); H93.13 Tinnitus, bilateral; I77.810 Thoracic aortic ectasia; E78.9 Disorder of lipoprotein metabolism, unspecified

== ENCOUNTER → 2024-08-28 09:31 | Outpatient (BNVA) | payer OTHER, SELFPAY | PROVIDERS: PCP Physician Assistant; Visit Provider Physician Assistant | DX: Z00.00 Encounter for general adult medical examination without abnormal findings (principal); G47.33 Obstructive sleep apnea (adult) (pediatric); H93.13 Tinnitus, bilateral; I77.810 Thoracic aortic ectasia; E78.9 Disorder of lipoprotein metabolism, unspecified | CPT/HCPCS: 96127 ==

== ENCOUNTER 2024-09-26 13:50 | Outpatient (REF) | payer OTHER, SELFPAY ==
--- OUTSIDE RECORDS SUMMARY | 2024-09-26 14:32 | XMS_ITS | Continuity of Care Document ---
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 It does not include entries that were removed or entered in error. Problem Status Onset Date Problem Type Date of Resolution Comments Source NO PSYCHIATRIC DIAGNOSIS OR CONDITION ON AXIS I Inactive Condition [facility] Medications Combined list of outpatient medications from Department of Defense and Veterans Affairs facilities.Medications provided include 1) outpatient medications from the last 15 months, and 2) patient-reported medications. Medication Details Route Status Patient Instructions Prescription Expires Prescription Number Last Dispense Date Ordering Provider Order Date Order Qty Source AZITHROMYCI N (azithromyc in), 250 MG, TABLET, ORAL, LUPIN PHARMACEU, 6 ea. BLIST PACK Active [id number] 2023 6 Pharmac y Data Transac tion Service Facilit y AZITHROMYCI N (azithromyc in), 250 MG, TABLET, ORAL, LUPIN PHARMACEU, 6 ea. BLIST PACK Active [id number] 2023 6 Pharmac y Data Transac tion Service Facilit y CYCLOBENZAP RINE HCL (cyclobenza simin HCl), 10 MG, TABLET, ORAL, TEVA [place], 1000 ea. BOTTLE Active [id number] 2023 30 Pharmac y Data Transac tion Service Facilit y CYCLOBENZAP RINE HCL (cyclobenza simin HCl), 10 MG, TABLET, ORAL, TEVA [place], 1000 ea. BOTTLE Active [id number] 2023 30 Pharmac y Data Transac [...] 1 Ordered 2021 No Facilit y Access predniSONE 10 mg oral tablet predniSO NE [...] Site Reaction Lot Number CVX Code Drug Scroll Machine Operator Status Comments Source tetanus, diphtheria, acellular pertu is 2021 [id number] sanofi pasteur complet ed tetanus, diphtheri a, acellular pertussis 05/20/21 Given Ambulat ory Pharmac y tetanus toxoid, reduced diphtheria toxoid, and acellular pertu is vaccine, adsorbed 1 2021 [id number] Sanofi Pasteur ([facility]) complet ed tetanus toxoid, reduced diphtheri a toxoid, and acellular pertussis vaccine, adsorbed DoD influenza, injectable, quadrivalent 2020 [id number] [facility] influenza , injectabl e, quadrival ent 12/26/20 Given Ambulat ory Pharmac y influenza, injectable, quadrivalent, contains preservative 11 2020 [id number] 158 [facility] ([facility]) complet ed influenza , injectabl e, quadrival ent, contains preservat ronn DoD COVID Vaccine Pfizer 2020 [facility] Arm [id number] 208 PFIZER complet ed COVID Vaccine Pfizer 12/11/20 Given Ambulat ory Pharmac y SARS-COV-2 (COVID-19) vaccine, mRNA, spike protein, LNP, preservative free, 30 mcg/0.3mL dose 2 2020 DEBBIE CROWDER [id number] 208 Pfizer, Inc (PFR) complet ed SARS-COV- 2 (COVID-19 ) vaccine, mRNA, spike protein, LNP, preservat ronn free, 30 mcg/0.3mL dose DoD COVID Vaccine Pfizer 2020 [facility] Arm [id number] PFIZER complet ed COVID Vaccine Pfizer 11/20/20 Given Ambulat ory Pharmac y SARS-COV-2 (COVID-19) vaccine, mRNA, spike protein, LNP, preservative free, 30 mcg/0.3mL dose 1 2020 MULUGETA PRESLEY [id number] 208 Pfizer, Inc (PFR) complet ed SARS-COV- [...] contains preservat ronn DoD Influenza, injectable, Madin Tiver[place] Canine Kidney, preservative free, quadrivalent 0 2019 171 (MVX) complet ed Influenza , injectabl e, Madin [place] Canine Kidney, preservat ronn free, quadrival ent DoD Influenza, injectable, MDCK, preservative free, quadrivalent 2019 BOGDASARIAN, () Not Given Influenza , injectabl e, MDCK, preservat ronn free, quadrival ent DoD influenza, injectable, quadrivalent- pf 2018 [id number] 150 Seqirus complet ed influenza , injectabl e, quadrival ent-pf 01/10/19 Given Ambulat ory Pharmac y Influenza, injectable, quadrivalent, preservative free 20 2018 [id number] 150 Seqirus (SEQ) complet ed Influenza , injectabl e, quadrival ent, preservat ronn free DoD influenza, seasonal, injectable 2017 [id number] 141 sanofi pasteur complet ed influenza , seasonal, injectabl e 12/20/17 Given Ambulat ory Pharmac y Influenza, seasonal, injectable 1 2017 [id number] 141 Sanofi Pasteur (PMC) complet ed Influenza , seasonal, injectabl e DoD influenza, seasonal, injectable 2016 TRANSCR IBED 141 complet ed influenza , seasonal, injectabl e 01/12/17 Given Ambulat ory Pharmac y Influenza, seasonal, injectable 1 2016 141 Transcribed (TRS) complet ed Influenza , seasonal, injectabl e DoD Influenza, seasonal, injectable, preservative free 2016 BOGDASARIAN, () Not Given Influenza , seasonal, injectabl e, preservat ronn free DoD influenza, seasonal, injectable 2015 [id number] 141 CSL Behring complet ed influenza , seasonal, injectabl e 12/30/15 Given Ambulat ory Pharmac y Influenza, seasonal, injectable 1 2015 [id number] 141 CSL OmniForce[employer], Inc. (CSL) complet ed Influenza , seasonal, injectabl e DoD influenza, seasonal, injectable-pf 2014 TRANSCR IBED 140 CSL Behring complet ed influenza , seasonal, injectabl e-pf 01/02/15 Given Ambulat ory Pharmac y Influenza, seasonal, injectable, preservative free 1 [address] [facility] Biotherapies, Inc. (CSL) complet ed Influenza [...] injectabl e DoD influenza, seasonal, injectable-pf 2012 [id number] 140 Novartis Pharmaceutica complet ed influenza , seasonal, injectabl e-pf 12/10/12 Given Ambulat ory Pharmac y Influenza, seasonal, injectable, preservative free 15 2012 [id number] 140 Novartis Wavemaker Softwaretica l Gareth. (NOV) complet ed Influenza , seasonal, injectabl e, preservat ronn free DoD influenza, seasonal, injectable-pf 2011 [id number] 140 CSL Behring complet ed influenza , seasonal, injectabl e-pf 11/26/11 Given Ambulat ory Pharmac y Influenza, seasonal, injectable, preservative free 14 2011 [id number] 140 CS Biotherapies, Inc. (CSL) complet ed Influenza , seasonal, injectabl e, preservat ronn free DoD tetanus, diphtheria, acellular pertu is 2010 [id number] 115 sanofi pasteur complet ed tetanus, diphtheri a, acellular pertussis 02/10/11 Given Ambulat ory Pharmac y tetanus toxoid, reduced diphtheria toxoid, and acellular pertu is vaccine, adsorbed 0 2010 [id number] 115 Sanofi Pasteur ([facility]) complet ed tetanus toxoid, reduced diphtheri a toxoid, and acellular pertussis vaccine, adsorbed DoD influenza, seasonal, injectable-pf 2010 [id number] 140 CSL Behring complet ed influenza , seasonal, injectabl e-pf 12/13/10 Given Ambulat ory Pharmac y Influenza, seasonal, injectable, preservative free 0 2010 [id number] [address] [facility] 10Six, Inc. (CSL) complet ed Influenza , seasonal, injectabl e, preservat ronn free DoD influenza virus vaccine,split 2009 [id number] 15 sanofi pasteur complet ed influenza virus vaccine,s plit 02/13/10 Given Ambulat ory Pharmac y influenza virus vaccine, split virus (incl. purified surface antigen)-reti red CODE 1 2009 [id number] 15 Sanofi Pasteur (PMC) complet ed influenza virus vaccine, split virus (incl. purified surface antigen)- retired CODE DoD Novel influenza-H1N 1-09, injectable 2009 [id number] 1 127 Novartis Pharmaceutica ls complet ed Novel influenza -P1J2-93, injectabl e 07/08/09 Given Ambulat ory Pharmac y Novel influenza-H1N 1-09, injectable 1 2009 [id number] 1 127 Novartis Pharmaceutica l Gareth. (NOV) complet ed Novel influenza -G9C9-89, injectabl e DoD influenza virus vaccine,split 2009 15 complet ed influenza virus vaccine,s plit 04/14/09 Given Ambulat ory Pharmac y influenza virus vaccine, split virus (incl. purified surface antigen)-reti red CODE 2 2009 15 Transcribed (TRS) complet ed influenza virus vaccine, split virus (incl. purified surface antigen)- retired CODE DoD influenza virus vaccine, live 2007 [id number] 111 Eachbaby Inc comple t ed influenza virus vaccine, live 11/25/07 Given Ambulat ory Pharmac y influenza virus vaccine, live, attenuated, for intranasal use 1 2007 [id number] 111 Ciespace, Inc. (MED) complet ed influenza virus vaccine, live, attenuate d, for intranasa l use DoD typhoid Vi capsular polysaccharid e vac 2007 [id number] 101 sanofi pasteur complet ed typhoid Vi capsular polysacch aride vac 11/03/07 Given Ambulat ory Pharmac y typhoid Vi capsular polysaccharid e vaccine 1 2007 [id number] 101 Sanofi Pasteur ([facility]) complet ed typhoid Vi capsular polysacch aride vaccine DoD influenza virus vaccine,split 2006 15 complet ed influenza virus vaccine,s plit 01/21/07 Given Ambulat ory Pharmac y influenza virus vaccine, split virus (incl. purified surface antigen)-reti red CODE 1 2006 15 Transcribed (TRS) complet ed influenza virus vaccine, split virus (incl. purified surface antigen)- retired CODE DoD influenza virus vaccine,split 2005 [id number] 15 sanofi pasteur complet ed influenza virus vaccine,s plit 01/01/06 Given Ambulat ory Pharmac y influenza virus vaccine, split virus (incl. purified surface antigen)-reti red CODE 1 2005 [id number] 15 [facility] Pasteur ([facility]) complet ed influenza virus vaccine, split virus (incl. purified surface antigen)- retired CODE DoD influenza virus vaccine, whole virus 2004 [id number] 16 sanofi pasteur complet ed influenza virus vaccine, whole virus 01/14/05 Given Ambulat ory Pharmac y influenza virus vaccine,split 2004 [id number] 15 sanofi pasteur complet ed influenza virus vaccine,s plit 01/14/05 Given Ambulat ory Pharmac y influenza virus vaccine, split virus (incl. purified surface antigen)-reti red CODE 1 2004 [id number] 15 Sanofi Pasteur ([facility]) complet ed influenza virus vaccine, split virus (incl. purified surface antigen)- retired CODE DoD influenza virus vaccine, whole virus 1 2004 [id number] 16 Sanofi Pasteur ([facility]) complet ed influenza virus vaccine, whole virus DoD influenza virus vaccine, whole virus 2003 [id number] 16 Novartis Pharmaceutica ls complet ed influenza virus vaccine, whole virus 11/22/03 Given Ambulat ory Pharmac y anthrax vaccine 2003 [id number] 24 Emergent Biosolutions complet ed anthrax vaccine 11/22/03 Given Ambulat ory Pharmac y influenza virus vaccine, whole virus 0 2003 [id number] 16 PowderJect Pharmaceutica ls (PWJ) complet ed influenza virus vaccine, whole virus DoD anthrax vaccine 5 2003 [id number] 24 Emergent [employer] [place] ([facility]) complet ed anthrax vaccine DoD typhoid vaccine, inactivated 2003 [id number] 101 sanofi pasteur complet ed typhoid vaccine, inactivat ed 07/12/03 Given Ambulat ory Pharmac y typhoid vaccine, parenteral, other than acetone-kille d, dried 0 2003 [id number] 41 Sanofi Pasteur ([facility]) complet ed typhoid vaccine, parentera l, other than acetone-k illed, dried DoD anthrax vaccine 2003 [id number] 24 [employer] complet ed anthrax vaccine 04/19/03 Given Ambulat ory Pharmac y anthrax vaccine 4 2003 [id number] 24 [facility]) complet ed anthrax vaccine DoD influenza [...] ory Pharmac y vaccinia (smallpox) vaccine 2002 [id number] 75 [employer] [facility] complet ed vaccinia (smallpox ) vaccine 04/24/02 Given Ambulat ory Pharmac y vaccinia (smallpox) vaccine 0 2002 [id number] 75 [facility] ([facility]) complet ed vaccinia (smallpox ) vaccine DoD anthrax vaccine 2001 [id number] 24 Emergent [employer] complet ed anthrax vaccine 03/03/02 Given Ambulat ory Pharmac y anthrax vaccine 2 2001 [id number] 24 Emergent [facility] ([facility]) complet ed anthrax vaccine DoD anthrax vaccine 2001 [id number] 24 Emergent [employer] complet ed anthrax vaccine 02/16/02 Given Ambulat ory Pharmac y anthrax vaccine 1 2001 [id number] 24 Emergent [facility] ([facility]) complet ed anthrax vaccine DoD hepatitis B adult vaccine 2001 [id number] 43 Merck & Company Inc complet ed hepatitis B adult vaccine 01/09/02 Given Ambulat ory Pharmac y influenza virus vaccine, whole virus 2001 [id number] 16 Unknown complet ed influenza virus vaccine, whole virus 01/09/02 Given Ambulat ory Pharmac y influenza virus vaccine, whole virus 0 2001 [id number] 16 Unknown (UNK) comple t ed influenza virus vaccine, whole virus DoD hepatitis B vaccine, adult dosage 3 2001 [id number] 43 Merck (MSD) complet ed hepatitis B vaccine, adult dosage DoD hepatitis B adult vaccine 2001 [id number] 43 Merck & Company Inc complet ed hepatitis B adult vaccine 05/30/01 Given Ambulat ory Pharmac y typhoid vaccine, inactivated 2001 [id number] 101 sanofi pasteur complet ed typhoid vaccine, inactivat ed 05/30/01 Given Ambulat ory Pharmac y typhoid vaccine, parenteral, other than acetone-kille d, dried 0 2001 [id number] 41 Sanofi Pasteur ([facility]) complet ed typhoid vaccine, parentera l, other than acetone-k illed, dried DoD hepatitis B vaccine, adult dosage 2 2001 [id number] 43 Merck (MSD) complet ed hepatitis B vaccine, adult dosage DoD tuberculin purified protein derivative 2001 [id number] complet ed tuberculi n purified protein derivativ e 05/19/01 Given Ambulat ory Pharmac y hepatitis B adult vaccine 2001 [id number] 43 Merck & Company Inc complet ed hepatitis B adult vaccine 04/22/01 Given Ambulat ory Pharmac y yellow fever vaccine 2001 [id number] 37 sanofi pasteur complet ed yellow fever vaccine 04/22/01 Given Ambulat ory Pharmac y yellow fever vaccine 0 2001 [id number] 37 Sanofi Pasteur ([facility]) complet ed yellow fever vaccine [...] vaccine DoD tuberculin purified protein derivative 2000 [id number] 96 [facility] complet ed tuberculi n purified protein derivativ e 05/05/00 Given Ambulat ory Pharmac y hepatitis A adult vaccine 2000 [id number] 52 Merck & Company Inc complet ed hepatitis A adult vaccine 05/05/00 Given Ambulat ory Pharmac y meningococcal polysaccharid e (MPSV4) 2000 [id number] 32 [facility] complet ed meningoco ccal polysacch aride (MPSV4) 05/05/00 Given Ambulat ory Pharmac y influenza virus vaccine, whole virus [id number] [facility] complet ed influenza virus vaccine, whole virus 05/05/00 Given Ambulat ory Pharmac y poliovirus vaccine, inactivated 2000 [id number] 10 sanofi pasteur complet ed polioviru s vaccine, inactivat ed 05/05/00 Given Ambulat ory Pharmac y poliovirus vaccine, inactivated 0 2000 [id number] 10 Sanofi Pasteur (PMC) complet ed polioviru s vaccine, inactivat ed DoD influenza virus vaccine, whole virus 0 2000 [id number] 16 [facility] complet ed influenza virus vaccine, whole virus DoD meningococcal polysaccharid e vaccine (MPSV4) 0 2000 [id number] 32 Esme (CON) complet ed meningoco ccal polysacch aride [...] Prevention' s HIV diagnostic algorithm. Refer to [facility] Lab Guide for additional information : [email or web address] x Testing performed by [employer] guanako peralta. [facility] [employer] EPILAB Miscellan eous Sendouts Repository Sample Received (05/25/23 12:14 PM) 05/24 N [facility] [employer] EPILAB Encounters Combined list of: 1) Encounters from Department of Veterans Affairs facilities going backup to the last 18 months, not all VA inpatient encounters are included; 2) Encounters from the Department of Defense facilities going backup to 280 months. Location Location Details Encounter Type Encounter Number Reason For Visit Attending Provider ADM Date DC Date Status Disposition Source [place] [place] [address](AFN G 104 Med Sq-FM) OUTPATIENT [id number] Notes Entered by: NICO GARCIA R 16 Sep 2016 0835 ------- ------- ------- ------- -- [employer] ice TIFFANIE YEH 09/16 Released w[facility]itations [facility] [place] [address](A FNG 104 Med Sq-FM) [place] [address](AFN G 104 Med Sq-FM) OUTPATIENT [id number] Notes Entered by: VON MCQUEEN 17 Mar 2017 1202 ------- ------- ------- ------- -- EVENS Eaton 03/17 Released w/o Limitations [facility] [place] [address](A FNG 104 Med Sq-FM) [place] [address](AFN G 104 Med Sq-FM) OUTPATIENT [id number] Notes Entered by: KENZIE HUGO 15 Nov 2017 1511 ------- ------- ------- ------- -- KENZIE ROACH 11/15 Released w/o Limitations [facility] [place] [address](A FNG 104 Med Sq-FM) [place] [address](AFN G 104 Med Sq-FM) OUTPATIENT [id number] Notes Entered by: REJI GIRALDO 11 May 2018 1022 ------- ------- ------- ------- -- EVENS RAMSAY 05/11 Released w/o Limitations [facility] [place] [address](A FNG 104 Med Sq-FM) [place] [address](AFN G 104 Med Sq-FM) OUTPATIENT [id number] Notes Entered by: CRUZ SPARKS 11 May 2018 1148 ------- ------- ------- ------- -- DEL BOWIE 05/11 Released w/o Limitations [facility] [place] [address](A FNG 104 Med Sq-FM) [place] [address](AFN G 104 Med Sq-FM) OUTPATIENT [id number] Notes Entered by: CRUZ SPARKS 24 Mar 2019 1522 ------- ------- ------- ------- -- DEL BOWIE 03/24 Released w/o Limitations [facility] [place] [address](A FNG 104 Med Sq-FM) [place] [address](AFN G 104 Med Sq-FM) OUTPATIENT [id number] Notes Entered by: MAGGIE DE OLIVEIRA 24 Jun 2020 0937 ------- ------- ------- ------- -- Annual Audiogr am KENZIE HUGO 06/24 Released w/o Limitations [facility] [place] [address](A FNG 104 Med Sq-FM) [facility] [place] OUTPATIENT [id number] DEL Sofia 11/20 Released w/o Limitations [facility] [place] M01D [place]) TELE CONSULT [id number] Notes Entered by: GILBERT SALVADOR 09 Dec 2020 1334 ------- ------- ------- ------- -- COVID Vaccina tion Locatio n Change GILBERT SALVADOR 12/09 Released to Self Care [facility] M01D [place]) [facility] [place] OUTPATIENT [id number] PFIZER# 2 MAU SPENCER 12/11 Released w/o Limitations [facility] [place] [place] [place] [address](AFN G 104 Med Sq-FM) OUTPATIENT [id number] Notes Entered by: MARCEL LINK 20 May 2021 1003 ------- ------- ------- ------- -- Audiogr am/TIFFANIE GALLEGOS 05/20 [facility] [place] [address](A FNG 104 Med Sq-FM) [place] [address](AFN G 104 Med Sq-FM) OUTPATIENT [id number] Notes Entered by: MAGGIE DE OLIVEIRA 04 Jun 2021 1221 ------- ------- ------- ------- -- Follow- Up Audiogr am KENZIE HUGO 06/04 [facility]ased w/o Limitations [facility] [place] [address](A FNG 104 Med Sq-FM) [place] [address](AFN G 104 Med Sq-FM) TELE CONSULT [id number] KENZIE HUGO 09/24 [facility] [place] [address](A FNG 104 Med Sq-FM) 8203R-104 MDG Between Visit [id number] 01/14 Discharge Disposition: Home or Self Care 8203R-1 04 MDG 8203R-104 MDG Between Visit [id number] 02/05 Discharge Disposition: Home or Self Care 8203R-1 04 MDG 8203R-104 MDG Care Not Rendered [id number] 06/165 Discharge Disposition: Home or Self Care 8203R-1 04 MDG Procedures Combined list of: 1) Procedures from Department of Veterans Affairs facilities [facility], not all VA non-surgical procedures are included; 2) All procedures from the Department of Defense facilities. Procedure Procedure Type Code Date Perfomer Comments Sourc e No data available for this section Amb[facility] ry Pharmacy Psychiatric Evaluation Comprehensive Examination Psychiatric Evaluation Comprehensive Examination 83990 08/22/19 07 LUKE TORRES DoD IMMUNIZATION ADM,INTRAMUSCULAR INJ,SEVERE AC RESPIRATORY SYNDROME CORONAVIR 2 (SARSCOV-2) (CORONAVIR DIS [COVID-19]) VACC,MRNALNP,SPIKE PROT,PRESRV FREE,30 MCG/0.3ML DOS,DILUENT RECONSTITUT;2ND DOSE 12/12/19 21 [facility] IMMUNIZATION ADM,INTRAMUSCULAR INJ,SEVERE AC RESPIRATORY SYNDROME CORONAVIR 2 (SARSCOV-2) (CORONAVIR DIS [COVID-19]) VACC,MRNALNP,SPIKE PROT,PRESRV FREE,30 MCG/0.3ML DOS,DILUENT RECONSTITUT;1ST DOSE 11/21/19 21 [facility] PSYCHOLOGICAL TSTING (INCL PSYCHODIAG ASSESSMNT, EMOTITY, INTELLECTUAL ABILITIES, PERSONALITY &PSYCHOPATHOLOGY, EG, MMPI), ADMINISTERED COMPUTER, W QUALIFIED HEALTH COMPUTER 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 Hearing loss is not significant enough to [...] has been for the last 6 years. 09/26/2024 8203R-104 MDG Functional Status Combined list of recent functional and cognitive assessments recorded at Department of Defense and Veterans Affairs (VA).VA Functional [place] Measurement (FIM) Scale: 1 = Total Assistance (Subject = 0% +), 2 = Maximal Assistance (Subject = 25% +), 3 = Moderate Assistance (Subject = 50% +), 4 = Minimal Assistance (Subject = 75% +), 5 = Supervision, 6 = Modified [place] (Device), 7 = Complete [place] (Timely, Safely). Assessment Date/Time Source Assessment Type Assessment Skill Assessment Score Assessment Details No data available for this section
== END 2024-09-26 13:51 | disposition home or self-care (01) ==
LOC: HO.SH 13:50
PROVIDERS: Visit Provider Physician Assistant
DX: Z01.118 Encounter for examination of ears and hearing with other abnormal findings (principal); H93.13 Tinnitus, bilateral
CPT/HCPCS: 92557; 92567; 92588

== ENCOUNTER → 2024-11-14 07:56 | Outpatient (REF) | payer OTHER, SELFPAY | LOC: HO.SL 07:56 | PROVIDERS: PCP Physician Assistant; Visit Provider Physician Assistant | DX: F51.01 Primary insomnia (principal); G47.33 Obstructive sleep apnea (adult) (pediatric); R06.83 Snoring; R40.0 Somnolence | CPT/HCPCS: 95806 ==

== ENCOUNTER → 2024-11-14 08:11 | Outpatient (BNV) | payer OTHER, SELFPAY | PROVIDERS: PCP Physician Assistant; Visit Provider Internal Medicine | DX: R06.83 Snoring (principal) | CPT/HCPCS: 95806 ==

== ENCOUNTER → 2025-01-20 07:58 | Outpatient (REF) | payer OTHER, SELFPAY ==
--- NOTE | 2025-01-20 08:03 | CA_ITS ---
Acquisition Time: 2025-01-20 09:07:57 Total Exercise Time: 00:09:50 Test Indications: CP,Pre-Op Evaluation Medications: SEE EMAR/PRINTOUT Protocol: THO Max HR: 166 BPM 93% of Pred: 177 BPM Max BP: 180/94 mmHG Max Work Load: 11.4 METS Exercise stress test with exercise 9 mins 50 secs of Tho Protocol, achieving 93% MPHR, with reports of mild SOB, no chest pain with exercise ( reported 4/10 chest discomfort when waiting for test), without any arrythmias, with normotensive response to exercise. With ST depression inferoaterally suggesting possible ischemia, that resolved quickly in recovery. In recovery, pt continued to feel well. Test reviewed with Dr. Mares. Will order a stress echo. Referred By: Daniel Mares Electronically Signed By: Brett Paulson
--- NOTE | 2025-01-20 08:04 | CA_ITS ---
Transthoracic Echocardiogram Patient (Last, First, Middle): Nika Coleman A Gender: Female Date of : 1980 Age: 44 Procedure Date: 01/20/2025 Procedure Type: Transthoracic Echocardiogram Location: OP Height: 167.64 cm Weight: 79.38 kg BSA: 1.89 m2 Heart Rate: 79 bpm BP: 125 / 85 mmHg Digital Account Manager: JU Referring MD: Daniel Mares MD Laborer [employer]: Daniel Mares MD Symptoms: I77.810 - Thoracic aortic ectasia Study Quality: Adequate. Limited per order ECG Rhythm: Sinus Conclusions: - Mildly dilated ascending aorta at 4 cm Findings Great Vessels There is mild dilatation of the ascending aorta measuring 4.00 cm. Prior Study Comparison No significant change compared to prior study dated: 05/09/2024. Measurements 2D Linear Measurements Ao Root: 3.50 2.1-3.5 cm LVOT Diam: 2.00 3.0+(-)1.3 cm LVOT LVOT Pk Parminder: 1.28 LVOT Mn Parminder: 0.90 LVOT VTI: 0.24 LVOT Pk Grad: 7.00 LVOT Mn Grad: 4.00 LVOT Diam: 2.00 LVOT Area: 3.14 Great Vessels Aorta Ao Root-2D: 3.50 2.0-3.7 cm Ao Asc: 4.00 2.1-3.4 cm Ao Arch: 2.70 Updated in Other Vendor System with Status of Final Daniel Mares MD electronically signed on 01/20/2025 4:14:45 PM with status of Final
== END ==
LOC: HO.CARD 07:58
PROVIDERS: PCP Physician Assistant; Visit Provider Internal Medicine Cardiovascular Disease
DX: I77.810 Thoracic aortic ectasia (principal); R07.89 Other chest pain
CPT/HCPCS: 93017; 93308

== ENCOUNTER → 2025-01-20 08:03 | Outpatient (BNV) | payer OTHER, SELFPAY | PROVIDERS: PCP Physician Assistant | DX: I77.810 Thoracic aortic ectasia (principal); R06.02 Shortness of breath | CPT/HCPCS: 93016; 93018; 93308 ==

== ENCOUNTER 2025-01-27 10:27 | Outpatient (AMB) | payer OTHER, SELFPAY ==
--- NOTE | 2025-01-27 10:31 | A.OFFVIS_ITS ---
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 Allergies Penicillins (PCN) Allergy (Intermediate, Verified 08/28/24 09:46) HIVES Medication List - Last Reconciled 01/27/25 by Daniel Mares MD bupropion HCl SR (Wellbutrin SR) 100 mg PO DAILY 30 days vfmhaxtbqq-kcdtnzakmxbav-llwn 50-325-40 mg 1 cap PO Q6H PRN 4 days cetirizine (Zyrtec) 10 mg PO DAILY 90 days cyclobenzaprine 10 mg PO BEDTIME 30 days dextroamphetamine-amphetamine 10 mg (Adderall) 10 mg PO DAILY PRN 28 days fluticasone propionate 50 mcg/actuation 2 sprays intranasal DAILY gabapentin 800 mg PO Q12H 90 days ibuprofen 800 mg PO TID mupirocin 2% (Centany) 1 appl topical BID 4 weeks rizatriptan 10 mg orally PRN; 30 days tretinoin 0.025% appl topical BEDTIME PRN zolpidem ER 12.5 mg PO BEDTIME 30 days HPI Comments Details: Nika comes for follow-up. She is scheduled for stress echocardiogram after last stress test because of borderline abnormal EKG as well as chest pain. She continues to have atypical chest pain episodes. A coronary calcium score recently shows presence of coronary calcium suggestive of atherosclerosis. Patient comes for follow-up. She remains very anxious about cardiovascular disease. [facility] Medical History Dermatitis Migraine aura without headache Microscopic hematuria Surgical History History of ectopic History of appendectomy Status post excision of lipoma History of tonsillectomy Family History Father CVD (cardiovascular disease) Diabetes CAD (coronary artery disease) Cancer Mother Diabetes Sister Asthma Sister No problems noted. Son In good health Daughter In good health Social History Housing: House Alcohol intake: current Alcohol intake frequency: holidays/special occasions only Alcohol type: wine Patient Tobacco Use Status: Never used Tobacco e-Cigarette/Vaping Use: Never Used Second Hand Smoke Exposure: No service: Yes Current occupational status: employed Current occupation: [employer] Cognitive needs: No Hearing needs: No Vision needs: No Female Reproductive History Menstrual Age of Menarche: 11 Review of Systems Const Denies chills, Denies fatigue, Denies fever(s), Denies frequent falls, Denies weakness, Denies weight gain and Denies weight loss ENT Denies dizziness Card Denies chest pain, Denies leg edema, Denies lightheadedness, Denies palpitations, Denies dyspnea, Denies dyspnea on exertion, Denies orthopnea and Denies other (loss of consciousness) Resp Denies cough, Denies dyspnea and Denies dyspnea on exertion GI Denies hematochezia and Denies change in stool character Musc Denies abnormal gait, Denies muscle weakness, Denies numbness, Denies radiating pain into limb and Denies tingling Neuro Denies abnormal gait, Denies dizziness, Denies frequent falls, Denies numbness, Denies tingling and Denies weakness Endo Denies fatigue and Denies palpitations Physical Exam Vital Signs: Last Vital Signs BP 114/70 01/27/25 10:32 BMI result Body Mass Index 28.5 Const General: cooperative, comfortable, no acute distress, well developed, alert, awake and well groomed Nutritional Appearance: average body habitus and well nourished Orientation/consciousness: patient oriented x3 Limitations: no limitations HEENT Head: Yes normocephalic and Yes atraumatic Neck Neck: Yes trachea midline, Yes supple and Yes no JVD Resp Effort & Inspection: normal respiratory effort Auscultation: clear to auscultation bilaterally Cardio Jugular venous distension: no JVD Palpation: normal PMI Rate: regular rate Rhythm: regular rhythm Heart sounds: S1 normal heart sound present, S2 normal heart sound present, no click, no gallops, no murmurs and no rubs GI Auscultation: normal bowel sounds Skin General skin exam: no rashes or lesions noted Neuro General: patient oriented x3 and no focal motor deficits Extrem General: Yes no clubbing, cyanosis or edema Psych Appearance: grossly normal Affect: Anxious affect present Assessment & Plan Assessment & Plan (1) Chest pain: Code(s): R07.9 - Chest pain, unspecified Category: Medical Qualifiers: Chest pain type: other chest pain Qualified Code(s): R07.89 - Other chest pain Plan: Patient's chest pain syndrome with highly atypical although she had abnormal stress test most likely related to false-positive test usually seen in women. Follow up with stress echocardiogram. Likelihood of obstructive coronary artery disease extremely low. Follow up after stress echocardiogram. (2) Elevated coronary artery calcium score: Code(s): R93.1 - Abnormal findings on diagnostic imaging of heart and coronary circulation Category: Medical Plan: Elevated calcium score although very low number at her age is highly suggestive of premature atherosclerosis. I would treat this more aggressively. Management of atherosclerosis was discussed. Will start her on atorvastatin 20 mg daily with follow-up lipid panel in 3 months time to assess response with target goal LDL less than 70 mg/dL. Discuss with her that presence of coronary calcium score does not usually always equate with a obstructive coronary artery disease. Continue monitor blood pressure at home. Encouraged to maintain activity level as tolerated. (3) Mild ascending aorta dilatation: Code(s): I77.810 - Thoracic aortic ectasia Category: Medical Plan: Mildly dilated ascending aorta which will be follow-up echocardiogram next year. No interventions required. Continue vascular risk factor modification as above. Will follow up in the clinic in 1 year's time, sooner PRN. Thank you for allowing me to partake in her care Orders: Orders CA echo transthoracic complete 1 Year I77.810 - Thoracic aortic ectasia Lipid Panel 3 Months R93.1 - Abnormal findings on diagnostic imaging of heart and coronary circulation Medications: New atorvastatin (Lipitor) 20 mg PO DAILY 30 tabs 5RF R93.1 - Abnormal findings on diagnostic imaging of heart and coronary circulation Coding Level of Care Code Est Pt Level 4 (03362) Complex EM visit Add On G2211 Diagnoses Other chest pain R07.89 Chest pain type: other chest pain Elevated coronary artery calcium score R93.1 Mild ascending aorta dilatation I77.810
[2025-01-27 10:32] VITALS: BP 114/70; BMI 28.5
== END 2025-01-27 11:09 | disposition home or self-care (01) ==
LOC: HO.HCS 10:28
PROVIDERS: PCP Physician Assistant; Visit Provider Internal Medicine Cardiovascular Disease
DX: R07.89 Other chest pain (principal); R93.1 Abnormal findings on diagnostic imaging of heart and coronary circulation; I77.810 Thoracic aortic ectasia
CPT/HCPCS: 99214; G2211

== ENCOUNTER → 2025-01-27 10:27 | Outpatient (BNVA) | payer OTHER, SELFPAY | PROVIDERS: PCP Physician Assistant; Visit Provider Internal Medicine Cardiovascular Disease | DX: R07.89 Other chest pain (principal); R93.1 Abnormal findings on diagnostic imaging of heart and coronary circulation; I77.810 Thoracic aortic ectasia; Z91.85 Personal history of military service | CPT/HCPCS: 99212 ==

== ENCOUNTER → 2025-02-26 11:02 | Outpatient (REF) | payer OTHER, SELFPAY ==
--- NOTE | 2025-02-26 11:04 | CA_ITS ---
Acquisition Time: 2025-02-26 11:22:14 Total Exercise Time: 00:10:05 Test Indications: cp, abn ekg Medications: see h&p Protocol: THO Max HR: 169 BPM 95% of Pred: 177 BPM Max BP: 154/88 mmHG Max Work Load: 11.8 METS Exercise stress test with exercise 10 mins 5 secs of Tho Protocol, achieving 95% MPHR, with reports of 3/10 left sided chest pressure that fluctuated between 1-3 with exercise and didnot increase in intensity. Without any arrythmias, with normotensive response to exercise. With borderline ST changes not meeting criteria for ischemia. In recovery, chest discomfort resolved and pt feeling back to baseline. Echo images obtained by tech at rest and post peak exercise. Definity contrast utilized. Test reviewed with Dr. June. Referred By: Brett Paulson Electronically Signed By: Brett Paulson
== END ==
LOC: HO.CARD 11:02
PROVIDERS: PCP Physician Assistant
DX: R94.39 Abnormal result of other cardiovascular function study (principal); R07.9 Chest pain, unspecified; R94.31 Abnormal electrocardiogram [ECG] [EKG]
CPT/HCPCS: 93350; Q9957

== ENCOUNTER → 2025-02-26 11:04 | Outpatient (BNV) | payer OTHER, SELFPAY | PROVIDERS: PCP Physician Assistant | DX: R07.89 Other chest pain (principal) | CPT/HCPCS: 93016; 93018; 93350; 93352 ==